=== PATIENT | female | born 1960 | race Caucasian/White ===

== ENCOUNTER 2020-03-29 11:42 | Outpatient (REF) | payer OTHER, SELFPAY ==
[2020-03-29 14:44] LABS: Alanine Aminotransferase 16 U/L (0-31); Albumin Level 4.4 g/dL (3.5-5.0); Alkaline Phosphatase 52 U/L (39-117); Anion Gap 14 (12-20); Aspartate Amino Transferase 15 U/L (5-31); Bilirubin Total 0.6 mg/dL (0.0-1.0); Blood Urea Nitrogen 13 mg/dL (9-16); Calcium 9.2 mg/dL (8.4-10.2); Carbon Dioxide 28 mmol/L (22-29); Chloride 102 mmol/L (96-108); Estimated Glomerular Filt Rate > 60; Glucose Random 87 mg/dL (60-115); Magnesium 1.7 mg/dL (1.6-2.6); Potassium 4.4 mmol/l (3.3-5.1); Sodium 140 mmol/L (135-145); Total Protein 6.5 g/dL (6.5-8.0)
== END 2020-03-29 11:43 | disposition home or self-care (01) ==
LOC: HO.10HDL 11:42
PROVIDERS: Visit Provider Physician Assistant
DX: R25.2 Cramp and spasm (principal)
CPT/HCPCS: 80053; 83735

== ENCOUNTER 2020-04-17 10:37 | Outpatient (REF) | payer OTHER, SELFPAY ==
[2020-04-17 14:08] LABS: Iron 84 mcg/dL (30-160); Percent Iron Saturation 25 % (15-50); Total Iron Binding Capacity 331 mcg/dL (228-428); Unsaturated Iron Binding 247 ug/dL
[2020-04-20 10:07] LABS: Magnesium, RBC 5.9 mg/dL (4.0-6.4)
== END 2020-04-17 10:38 | disposition home or self-care (01) ==
LOC: HO.10HDL 10:37
PROVIDERS: Visit Provider Physician Assistant
DX: R53.83 Other fatigue (principal)
CPT/HCPCS: 83540; 83735

== ENCOUNTER 2020-05-02 08:48 | Outpatient (REF) | payer OTHER, SELFPAY ==
[2020-05-02 11:54] LABS: Ferritin 89 ng/mL (10-250)
== END 2020-05-02 08:49 | disposition home or self-care (01) ==
LOC: HO.10HDL 08:48
PROVIDERS: Visit Provider Physician Assistant
DX: R53.83 Other fatigue (principal)
CPT/HCPCS: 36415; 82728

== ENCOUNTER 2020-08-17 10:54 | Outpatient (REF) | payer OTHER, SELFPAY ==
[2020-08-17 14:00] LABS: Alanine Aminotransferase 14 U/L (0-31); Aspartate Amino Transferase 16 U/L (5-31); Estimated Glomerular Filt Rate > 60
== END 2020-08-17 10:55 | disposition home or self-care (01) ==
LOC: HO.10HDL 10:54
PROVIDERS: PCP Physician Assistant Medical; Visit Provider Physician Assistant Medical
DX: G83.9 Paralytic syndrome, unspecified (principal)
CPT/HCPCS: 36415; 82565; 84450; 84460

== ENCOUNTER 2020-10-24 12:57 | Outpatient (REF) | payer OTHER, SELFPAY ==
--- NOTE | ~2020-10-24 | US_ITS ---
EXAMINATION: RIGHT and LEFT LOWER EXTREMITY VENOUS ULTRASOUND (Reflux Exam) CLINICAL INDICATION: leg pain and varicose veins. COMPARISON: None. TECHNIQUE: Color flow triplex imaging and compression Doppler was performed to evaluate both the deep and the superficial systems bilaterally. To evaluate the superficial system, the examination was performed in the upright position. Color-flow Doppler ultrasound and compression ultrasound were utilized. In addition, maneuvers were utilized to demonstrate reflux. FINDINGS: 1. DEEP VENOUS ULTRASOUND OF THE RIGHT LOWER EXTREMITY: Respiratory variation, normal compression and augmented flow are noted in the right common femoral vein as well as the right popliteal vein and there is no evidence of deep venous thrombosis at these locations. There is no evidence of reflux in the deep system in either the common femoral vein or the popliteal vein. There is no evidence of a Goncalves's cyst. 2. SUPERFICIAL ULTRASOUND WITH DOPPLER OF RIGHT LOWER EXTREMITY: The right great saphenous vein at the saphenofemoral junction measures 5 mm, at the mid thigh 3 mm, kzzcb-[id number]-bpid 3 mm, zdelg-owu-klnr 2 mm, at mid calf 2 mm and at the ankle measures 2 mm. There is no reflux demonstrated in the right great saphenous vein. There is a lateral accessory greater saphenous vein that measures 2 mm and does not demonstrate reflux The right small saphenous vein measures 1 mm and shows no reflux. There is a senior international tax manager in the calf that measures 2 mm and does not demonstrate reflux. 3. DEEP VENOUS ULTRASOUND OF THE LEFT LOWER EXTREMITY: Respiratory variation, normal compression and augmented flow are noted in the left common femoral vein as well as the left popliteal vein and there is no evidence of deep venous thrombosis at these locations. There is no evidence of reflux in the deep system in either the common femoral vein or the popliteal vein. . There is no evidence of a Goncalves's cyst. 4. SUPERFICIAL ULTRASOUND WITH DOPPLER OF LEFT LOWER EXTREMITY: Left great saphenous vein at the saphenofemoral junction measures 4 mm, at the mid thigh to mm, uzbyr-kpl-vycy 2 mm, zogve-xxf-uorw 2 mm, at mid calf 2 mm and at the ankle measures 2 mm. There is no reflux demonstrated in the left great saphenous vein. There is an accessory lateral greater saphenous vein that measures 2 mm and does not demonstrate reflux. The left small saphenous vein measures 1-2 mm and shows no reflux. There is a senior international tax manager in the calf that measures 3 mm and does not demonstrate reflux. US/US venous duplex LE BI IMPRESSION: 1. No evidence of reflux or thrombus in the common femoral veins or popliteal veins bilaterally. 2. The saphenous systems are competent bilaterally. .
== END 2020-10-24 12:58 | disposition home or self-care (01) ==
LOC: HO.US 12:57
PROVIDERS: PCP Internal Medicine; Visit Provider Physician Assistant
DX: I87.2 Venous insufficiency (chronic) (peripheral) (principal)
CPT/HCPCS: 93970

== ENCOUNTER 2020-12-27 09:31 | Outpatient (REF) | payer OTHER, SELFPAY ==
[2020-12-27 10:47] LABS: MANUAL DIFF FLAG NO
[2020-12-27 10:56] LABS: Basophils Absolute Auto 0.1 X10*3/uL (0.0-0.2); Basophils Percent Auto 1.4 % (0-2); Eosinophils Absolute Auto 0.2 X10*3/uL (0.0-0.4); Eosinophils Percent Auto 4.9 % (0-4); Hematocrit 41.7 % (37-47); Hemoglobin 13.6 g/dl (12.0-16.0); Imm Gran Abs Auto 0.01 X10*3/uL (0.00-0.03); Imm Gran Pct Auto 0.2 % (0.0-0.4); Lymphocytes Absolute Auto 1.7 X10*3/uL (1.2-4.9); Lymphocytes Percent Auto 39.2 % (20-40); Mean Corpuscular HGB Conc 32.6 g/dl (31.0-35.0); Mean Corpuscular Hemoglobin 30.8 pg (27.0-33.0); Mean Corpuscular Volume 94.3 fL (80-98); Monocytes Absolute Auto 0.4 X10*3/uL (0.1-1.2); Monocytes Percent Auto 8.6 % (2-11); Neutrophils Percent Auto 45.7 % (45-73); Platelet Count 241 X10*3/uL (160-400); Red Blood Count 4.42 X10*6/uL (4.20-5.50); Red Cell Distribution Width 12.9 % (11.0-16.0); White Blood Count 4.3 X10*3/uL (4.8-10.8)
[2020-12-27 11:28] LABS: Alanine Aminotransferase 16 U/L (0-31); Albumin Level 4.3 g/dL (3.5-5.0); Alkaline Phosphatase 53 U/L (39-117); Anion Gap 13 (12-20); Aspartate Amino Transferase 19 U/L (5-31); Bilirubin Total 0.6 mg/dL (0.0-1.0); Blood Urea Nitrogen 8 mg/dL (9-16); Calcium 9.6 mg/dL (8.4-10.2); Carbon Dioxide 28 mmol/L (22-29); Chloride 105 mmol/L (96-108); Cholesterol 289 mg/dL; Estimated Glomerular Filt Rate > 60; Glucose Fasting 83 mg/dL (60-99); HDL Cholesterol 81 mg/dL; Iron 114 mcg/dL (30-160); LDL Cholesterol Calculated 187 mg/dl; Magnesium 1.9 mg/dL (1.6-2.6); Percent Iron Saturation 32 % (15-50); Potassium 4.4 mmol/L (3.3-5.1); Sodium 142 mmol/L (135-145); Total Iron Binding Capacity 358 mcg/dL (228-428); Total Protein 6.5 g/dL (6.5-8.0); Triglycerides 109 mg/dL; Unsaturated Iron Binding 244 ug/dL
[2020-12-27 11:57] LABS: Folate 12.2 ng/mL (> or = 4.0); Vitamin B12 203 pg/mL (200-900)
== END 2020-12-27 09:32 | disposition home or self-care (01) ==
LOC: HO.10HDL 09:31
PROVIDERS: Visit Provider Physician Assistant
DX: Z00.00 Encounter for general adult medical examination without abnormal findings (principal); E83.42 Hypomagnesemia; D50.0 Iron deficiency anemia secondary to blood loss (chronic)
CPT/HCPCS: 36415; 80053; 80061; 82607; 82746; 83540; 83735; 85025

== ENCOUNTER 2021-01-30 09:43 | Outpatient (REF) | payer OTHER, SELFPAY ==
[2021-01-30 10:57] LABS: Vitamin D 25-OH Total 27.8 ng/mL (>30)
== END 2021-01-30 09:44 | disposition home or self-care (01) ==
LOC: HO.10HDL 09:43
PROVIDERS: Visit Provider Advanced Practice Midwife
DX: E55.9 Vitamin D deficiency, unspecified (principal)
CPT/HCPCS: 36415; 82306

== ENCOUNTER 2021-02-07 15:56 | Outpatient (REF) | payer OTHER, SELFPAY ==
--- NOTE | ~2021-02-07 | MM_ITS ---
EXAMINATION: MM SCREENING DIGITAL BREAST TOMOSYNTHESIS, BILATERAL CLINICAL INFORMATION: Screening. Asymptomatic. The lifetime risk of breast cancer based on the Tyrer-Cuzick Model is 4%. COMPARISON: Mammography: 01/04/2020, 12/29/2018, 12/22/2017 TECHNIQUE: Digital breast tomosynthesis is performed in both the craniocaudal and mediolateral oblique views along with computer-aided detection (CAD). Synthesized 2D images are generated from the tomosynthesis. FINDINGS: There are scattered areas of fibroglandular density (ACR BI-RADS breast composition Category b). Breast tissue composition borders on heterogeneously dense. Parenchymal pattern is similar to prior studies. No interval mass or developing density or architectural abnormality. No abnormal calcifications. The axilla and skin contours are unremarkable. MM/MM tomosynthesis screening BI IMPRESSION: No mammographic evidence of malignancy. ASSESSMENT: BI-RADS 1: Negative RECOMMENDATION: Routine annual mammography screening. This patient's information was entered into a reminder system with a target due date for their next mammogram.
== END 2021-02-07 15:57 | disposition home or self-care (01) ==
LOC: HO.MAMMO 15:56
PROVIDERS: PCP Advanced Practice Midwife; Visit Provider Advanced Practice Midwife
DX: Z12.31 Encounter for screening mammogram for malignant neoplasm of breast (principal)
CPT/HCPCS: 77063; 77067

== ENCOUNTER 2021-08-21 12:48 | Outpatient (REF) | payer OTHER, SELFPAY ==
[2021-08-21 14:30] LABS: Alanine Aminotransferase 17 U/L (0-31); Albumin Level 4.5 g/dL (3.5-5.0); Alkaline Phosphatase 42 U/L (39-117); Aspartate Amino Transferase 21 U/L (5-31); Bilirubin Direct 0.2 mg/dL (0.0-0.5); Bilirubin Total 0.4 mg/dL (0.0-1.0); Total Protein 6.8 g/dL (6.5-8.0)
== END 2021-08-21 12:49 | disposition home or self-care (01) ==
LOC: HO.HMGCLDS 12:48
PROVIDERS: PCP Internal Medicine; Visit Provider Student in an Organized Health Care Education/Training Program
DX: S14.125A Central cord syndrome at C5 level of cervical spinal cord, initial encounter (principal)
CPT/HCPCS: 36415; 80076

== ENCOUNTER 2021-10-01 11:39 | Outpatient (REF) | payer OTHER, SELFPAY ==
--- NOTE | ~2021-10-01 | XR_ITS ---
EXAMINATION: X-RAY RIGHT SHOULDER X-RAY LEFT SHOULDER CLINICAL INFORMATION: Pain. COMPARISON: No similar priors. TECHNIQUE: 4 views of each shoulder. FINDINGS: No acute fractures or malalignment. The humeral heads are well-seated in their glenoid. The acromioclavicular joints are intact except for mild degenerative osteoarthritis. No significant soft tissue abnormality. Imaged lungs are within normal limits. XR/XR shoulder LT min 2V IMPRESSION: No acute fracture or malalignment. 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
--- NOTE | ~2021-10-01 | XR_ITS ---
EXAMINATION: X-RAY RIGHT SHOULDER X-RAY LEFT SHOULDER CLINICAL INFORMATION: Pain. COMPARISON: No similar priors. TECHNIQUE: 4 views of each shoulder. FINDINGS: No acute fractures or malalignment. The humeral heads are well-seated in their glenoid. The acromioclavicular joints are intact except for mild degenerative osteoarthritis. No significant soft tissue abnormality. Imaged lungs are within normal limits. XR/XR shoulder RT min 2V IMPRESSION: No acute fracture or malalignment. 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
== END 2021-10-01 11:40 | disposition home or self-care (01) ==
LOC: HO.XRAY 11:39
PROVIDERS: PCP Internal Medicine; Visit Provider Student in an Organized Health Care Education/Training Program
DX: M25.511 Pain in right shoulder (principal); M25.512 Pain in left shoulder
CPT/HCPCS: 73030

== ENCOUNTER 2021-11-08 11:45 | Outpatient (REF) | payer OTHER, SELFPAY ==
--- NOTE | ~2021-11-08 | XR_ITS ---
EXAMINATION: XR LUMBOSACRAL SPINE CLINICAL INFORMATION: Low back pain. COMPARISON: 03/01/2008. TECHNIQUE: 3 views of the lumbosacral spine. FINDINGS: There are 5 eem-tec-rimzmrg lumbar vertebra. There is mild scoliosis convex left. No acute fracture is identified. No definite spondylolysis is seen. There is a minimal grade 1 spondylolisthesis L4-L5. There is facet arthropathy seen at the L4-L5 level bilaterally. There are some mildly increased sclerosis about the left L5-S1 facet joint. There is degenerative spurring of the sacroiliac joints bilaterally. Psoas margins are intact. Calcified splenic artery aneurysm is seen. XR/XR lumbar spine 2-3V IMPRESSION: Mild degenerative change of the lumbar spine as described without evidence of acute fracture. The facet arthropathy is new since study of 03/01/2008. Rim calcified 1.5 cm splenic artery aneurysm.
== END 2021-11-08 11:46 | disposition home or self-care (01) ==
LOC: HO.XRAY 11:45
PROVIDERS: PCP Internal Medicine; Visit Provider Student in an Organized Health Care Education/Training Program
DX: M54.50 Low back pain, unspecified (principal)
CPT/HCPCS: 72100

== ENCOUNTER 2021-11-13 12:25 | Emergency (ER) | payer OTHER, SELFPAY ==
--- NOTE | 2021-11-13 | ECG_ITS ---
Test Reason : chest pain Blood Pressure : / mmHG Vent. Rate : 065 BPM Atrial Rate : 065 BPM P-R Int : 164 ms QRS Dur : 084 ms QT Int : 372 ms P-R-T Axes : 078 071 062 degrees QTc Int : 386 ms Normal sinus rhythm Normal ECG No previous ECGs available Referred By: Generic ED Physician Electronically Signed By:Pasquale Del Rosario
--- NOTE | ~2021-11-13 | XR_ITS ---
EXAMINATION: XR CHEST CLINICAL INFORMATION: Chest pain COMPARISON: None TECHNIQUE: PA view of the chest was obtained. FINDINGS: No significant abnormality is noted involving the heart, lungs, mediastinum, bony thorax or soft tissues. XR/XR chest 1V IMPRESSION: No acute disease.
[2021-11-13 14:29] VITALS: BP 132/71; PULSE 69; RESP 18; O2SAT 95; BMI 19.1
[2021-11-13 14:48] LABS: MANUAL DIFF FLAG NO
[2021-11-13 14:51] LABS: Basophils Percent Auto 0.7 % (0-2); Eosinophils Absolute Auto 0.8 X10*3/uL (0.0-0.4); Eosinophils Percent Auto 15.6 % (0-4); Hematocrit 42.8 % (37.0-47.0); Hemoglobin 14.2 g/dl (12.0-16.0); Imm Gran Abs Auto 0.01 X10*3/uL (0.00-0.03); Imm Gran Pct Auto 0.2 % (0.0-0.4); Lymphocytes Absolute Auto 1.8 X10*3/uL (1.2-4.9); Lymphocytes Percent Auto 33.1 % (20-40); Mean Corpuscular HGB Conc 33.2 g/dl (31.0-35.0); Mean Corpuscular Hemoglobin 31.8 pg (27.0-33.0); Mean Corpuscular Volume 95.7 fL (80.0-98.0); Mean Platelet Volume 10.3 fL (9.4-12.3); Monocytes Absolute Auto 0.4 X10*3/uL (0.1-1.2); Neutrophils Absolute Auto 2.3 x10*3/uL (2.0-8.3); Neutrophils Percent Auto 42.4 % (45-73); Platelet Count 241 X10*3/uL (160-400); Red Blood Count 4.47 X10*6/uL (4.20-5.50); White Blood Count 5.4 X10*3/uL (4.8-10.8)
[2021-11-13 15:05] LABS: Anion Gap 11 (12-20); Blood Urea Nitrogen 10 mg/dL (9-16); Calcium 9.5 mg/dL (8.4-10.2); Carbon Dioxide 29 mmol/L (22-29); Chloride 106 mmol/L (96-108); Creatinine Clr Calc Pharmacy 69.4; Estimated Glomerular Filt Rate > 60; Glucose Random 98 mg/dL (60-115); Potassium 4.4 mmol/L (3.3-5.1); Sodium 142 mmol/L (135-145)
[2021-11-13 15:10] LABS: Troponin-I High Sensitivity < 3.5 ng/L (<3.5-17.0)
--- NOTE | 2021-11-13 17:10 | ED_ITS ---
HPI - Chest Pain General Chief Complaint: Chest Pain Stated Complaint: Chest discomfort Time Seen by Provider: 11/13/21 17:01 Source: patient and family Mode of arrival: wheelchair Limitations: no limitations History of Present Illness HPI narrative: 61-year-old female states she had an injury to her C5 vertebrae which was repaired at [facility] and has tension paresis. She states she has been having issues lately with tingling in her legs and arms for which she takes baclofen normally and had recently started on gabapentin. She states today she noticed some pain versus sensation to her chest they got her labs and she came to the emergency from further evaluation she denies any chest pain at this time she d enies fevers chills cough nausea vomiting or diarrhea. She also states that at times she feels like she is having harder time breathing than normal. MD complaint: chest heaviness Related Data Allergies Allergy/AdvReac Type Severity Reaction Status Date / Time Penicillins Allergy Rash Verified 11/13/21 14:29 Sulfa (Sulfonamide Allergy Rash Verified 11/13/21 14:29 Antibiotics) Review of Systems Review of Systems: Review of systems: General: Patient denies any fever chills recent illness or falls Musculoskeletal: Denies back pain or body aches or other injuries HEENT: denies headache, runny nose, ear pain Respiratory: denies shortness of breath, cough Cardiovascular: no chest pain or palpitations : denies dysuria, frequency Abdomen: no nausea vomiting denies abdominal pain Extremities: no swelling, no pain Skin: no diaphoresis Yes all other systems are reviewed and are negative PMFSH Past Medical History Attestation statement: The following information was validated with the patient. Physical Exam Vital Signs: Vital Signs: Last Vital Signs Pulse 69 11/13/21 14:29 Resp 18 11/13/21 14:29 BP 132/71 11/13/21 14:29 Pulse Ox 95 11/13/21 14:29 O2 Del Method 11/13/21 14:29 BMI result Body Mass Index 19.1 General: Well-appearing well-nourished in no signs of distress HEENT: Normocephalic atraumatic Neck: No signs of JVD, no masses no tenderness or lymphadenopathy Cardiovascular: Regular rate and rhythm Respiratory: Clear to auscultation bilaterally Abdomen: Soft nontender no masses Extremities: Normal pedal pulses no signs of edema patient is moving all 4 extremities well Skin: Dry warm no rashes Back: No tenderness full ROM MDM - Chest Pain MDM Narrative Medical decision making narrative: Patient multiple planes with a normal workup including EKG labs and troponin she did have his symptoms the past 2 days I do not think this is ACS I do not think we need another troponin level thinks is likely related to her C5 vertebra and paresthesias and she will likely need follow-up with her neurosurgeon. Medical Records Data Attestation: I reviewed the patient's medical records. Lab Data Attestation: I reviewed the patient's lab results. Result diagrams: 11/13/21 14:43 11/13/21 14:43 Labs: Lab Results 11/13/21 11/13/21 11/13/21 Range/Units 14:43 14:43 14:44 WBC 5.4 (4.8-10.8) X10*3/uL RBC 4.47 (4.20-5.50) X10*6/uL Hgb 14.2 (12.0-16.0) g/dl Hct 42.8 (37.0-47.0) % MCV 95.7 (80.0-98.0) fL MCH 31.8 (27.0-33.0) pg MCHC 33.2 (31.0-35.0) g/dl RDW 13.0 (11.0-16.0) % Plt Count 241 (160-400) X10*3/uL MPV 10.3 (9.4-12.3) fL Immature Gran % (Auto) 0.2 (0.0-0.4) % Neut % (Auto) 42.4 L (45-73) % Lymph % (Auto) 33.1 (20-40) % Nye % (Auto) 8.0 (2-11) % Eos % (Auto) 15.6 H (0-4) % Baso % (Auto) 0.7 (0-2) % Lymph # (Auto) 1.8 (1.2-4.9) X10*3/uL Nye # (Auto) 0.4 (0.1-1.2) X10*3/uL Eos # (Auto) 0.8 H (0.0-0.4) X10*3/uL Baso # (Auto) 0.0 (0.0-0.2) X10*3/uL Abs Immat Gran (auto) 0.01 (0.00-0.03) X10*3/uL Absolute Neuts (auto) 2.3 (2.0-8.3) x10*3/uL Absolute Nucleated RBC 0.000 (0.0-0.012) X10*3/uL Nucleated RBC % (auto) 0.0 (0.0-0.2) /100WBC Sodium 142 (135-145) mmol/L Potassium 4.4 (3.3-5.1) mmol/L Chloride 106 (96-108) mmol/L Carbon Dioxide 29 (22-29) mmol/L Anion Gap 11 L (12-20) BUN 10 (9-16) mg/dL Creatinine 0.65 (0.5-1.4) mg/dL Estim Creat Clear Calc 69.4 Estimated GFR > 60 Random Glucose 98 (60-115) mg/dL Calcium 9.5 (8.4-10.2) mg/dL Troponin I High Sens < 3.5 (<3.5-17.0) ng/L ECG Data ECG #1: Attestation: I personally reviewed and interpreted this ECG as follows: ECG interpretation date: 11/13/21 ECG interpretation time: 17:13 Prior ECG tracings: not available for review Interpretation: Rate 65 normal sinus rhythm normal intervals no signs of ischemia Scores Heart Score History: -0- slightly suspicious ECG: -0- normal Age: -1- >45 - <65 Risk factory: -0- no risk factors known Troponin: -0- < or = normal limit Score: 1 Risk: 1.7% Discharge Plan Discharge Clinical Impression: Chest pain, Paresthesias Patient Disposition: Home, Self-Care Additional Instructions: Your x-ray and labs are all unremarkable if you have any other further concerns please not hesitate to come back to emergency department.
[2021-11-13 17:40] VITALS: BP 115/65; PULSE 88; RESP 16; O2SAT 96
--- NOTE | 2021-11-13 17:40 | PC.NURSE ---
PT WAS SEEN AND DISPOSED BY DR PALMER. RESULTS WERE REVIEWED [facility]
== END 2021-11-13 17:41 | disposition home or self-care (01) ==
PROVIDERS: Emergency Provider Student in an Organized Health Care Education/Training Program; PCP Internal Medicine
DX: R07.9 Chest pain, unspecified (principal); R20.2 Paresthesia of skin
CPT/HCPCS: 36415; 71045; 80048; 84484; 85025; 93005; 99283

== ENCOUNTER 2022-02-12 15:54 | Outpatient (REF) | payer OTHER, SELFPAY ==
--- NOTE | ~2022-02-12 | MM_ITS ---
EXAMINATION: MM SCREENING DIGITAL BREAST TOMOSYNTHESIS, BILATERAL CLINICAL INFORMATION: Screening. Asymptomatic. The lifetime risk of breast cancer based on the Tyrer-Cuzick Model is 4%. COMPARISON: Mammography: 02/07/2021, 01/04/2020, 12/29/2018 TECHNIQUE: Digital breast tomosynthesis is performed in both the craniocaudal and mediolateral oblique views along with computer-aided detection (CAD). Synthesized 2D images are generated from the tomosynthesis. FINDINGS: There are scattered areas of fibroglandular density (ACR BI-RADS breast composition Category b). Parenchymal pattern is similar to prior studies. There is no developing density or architectural abnormality. No significant mass. There are some scattered vascular calcifications again seen. No abnormal calcifications. The axilla and skin contours are unremarkable. MM/MM tomosynthesis screening BI IMPRESSION: No mammographic evidence of malignancy. ASSESSMENT: BI-RADS 1: Negative RECOMMENDATION: Routine annual mammography screening. This patient's information was entered into a reminder system with a target due date for their next mammogram.
== END 2022-02-12 15:55 | disposition home or self-care (01) ==
LOC: HO.MAMMO 15:54
PROVIDERS: PCP Internal Medicine; Visit Provider Advanced Practice Midwife
DX: Z12.31 Encounter for screening mammogram for malignant neoplasm of breast (principal)
CPT/HCPCS: 77063; 77067

== ENCOUNTER 2022-02-22 08:46 | Outpatient (REF) | payer OTHER, SELFPAY ==
--- NOTE | ~2022-02-22 | US_ITS ---
EXAMINATION: US RETROPERITONEAL LIMITED (AORTA) CLINICAL INFORMATION: Known aneurysm of splenic artery. COMPARISON: None TECHNIQUE: Barrios-scale, color Doppler and spectral Doppler evaluation of the abdominal aorta. FINDINGS: The aorta is normal. The measurements of the aorta in maximum AP and transverse dimensions respectively are as follows: Proximal: 2.4 x 2.1 cm. Mid: 1.9 x 2.1 cm. Distal: 1.6 x 1.6 cm. PSV: 75.8 cm/s. The measurements of the common iliac arteries in maximum AP and TRV dimensions are as follows: Right Common Iliac Artery: 1.1 x 0.92 cm. Left Common Iliac Artery: 0.8 x 0.65 cm. US/US aorta IMPRESSION: Normal caliber abdominal aorta. No abdominal aortic aneurysm is seen..
[2022-02-22 15:06] LABS: Alanine Aminotransferase 9 U/L (0-31); Albumin Level 4.3 g/dL (3.5-5.0); Alkaline Phosphatase 49 U/L (39-117); Aspartate Amino Transferase 18 U/L (5-31); Bilirubin Direct 0.2 mg/dL (0.0-0.5); Bilirubin Total 0.5 mg/dL (0.0-1.0); Total Protein 6.6 g/dL (6.5-8.0)
== END 2022-02-22 08:47 | disposition home or self-care (01) ==
LOC: HO.HMGCX 08:46
PROVIDERS: Absent Provider Physical Medicine & Rehabilitation; PCP Internal Medicine; Visit Provider Physician Assistant
DX: I72.8 Aneurysm of other specified arteries (principal); S14.125A Central cord syndrome at C5 level of cervical spinal cord, initial encounter
CPT/HCPCS: 36415; 76775; 80076

== ENCOUNTER 2022-04-09 11:10 | Outpatient (REF) | payer OTHER, SELFPAY ==
[2022-04-09 14:01] LABS: Appearance Urine Clear; Color Urine Yellow; Glucose Urine UA Negative (Negative); Leukocyte Esterase Urine Moderate (2+) (Negative); Nitrite Urine Negative (Negative); PH 5.5 (5.0-9.0); Specific Gravity - Urine <= 1.005 (1.005-1.025); UMIC TRIGGER UA YES; Urine Blood Negative (Negative); Urine Ketones Negative (Negative); Urine Protein Negative (Neg-Trace)
[2022-04-09 14:21] LABS: Bacteria Urine None Seen (None Seen); Hyaline Casts Urine 0-2 /LPF (0-2); RBC Urine 0-2 /HPF (0-2); Squamous Epithelial Cell Urine 0-2 /HPF (0-2); WBC Urine 0-5 /HPF (0-5)
== END 2022-04-09 11:11 | disposition home or self-care (01) ==
LOC: HO.HMGCLDS 11:10
PROVIDERS: PCP Internal Medicine; Visit Provider Urology
DX: R39.15 Urgency of urination (principal)
CPT/HCPCS: 81001; 81003; 87086

== ENCOUNTER 2022-05-30 08:57 | Outpatient (REF) | payer OTHER, SELFPAY ==
[2022-05-30 11:23] LABS: MANUAL DIFF FLAG NO
[2022-05-30 11:33] LABS: Basophils Absolute Auto 0.1 X10*3/uL (0.0-0.2); Eosinophils Absolute Auto 0.2 X10*3/uL (0.0-0.4); Eosinophils Percent Auto 3.8 % (0-4); Hematocrit 44.1 % (37.0-47.0); Imm Gran Abs Auto 0.02 X10*3/uL (0.00-0.03); Imm Gran Pct Auto 0.4 % (0.0-0.4); Lymphocytes Absolute Auto 2.3 X10*3/uL (1.2-4.9); Lymphocytes Percent Auto 42.9 % (20-40); Mean Corpuscular HGB Conc 31.7 g/dl (31.0-35.0); Mean Corpuscular Hemoglobin 29.9 pg (27.0-33.0); Mean Platelet Volume 10.1 fL (9.4-12.3); Monocytes Absolute Auto 0.5 X10*3/uL (0.1-1.2); Monocytes Percent Auto 8.8 % (2-11); Neutrophils Absolute Auto 2.3 x10*3/uL (2.0-8.3); Neutrophils Percent Auto 43.1 % (45-73); Platelet Count 270 X10*3/uL (160-400); Red Blood Count 4.69 X10*6/uL (4.20-5.50); Red Cell Distribution Width 13.1 % (11.0-16.0); White Blood Count 5.3 X10*3/uL (4.8-10.8)
[2022-05-30 12:00] LABS: Alanine Aminotransferase 21 U/L (0-31); Albumin Level 4.3 g/dL (3.5-5.0); Alkaline Phosphatase 40 U/L (39-117); Anion Gap 10 (12-20); Aspartate Amino Transferase 18 U/L (5-31); Bilirubin Direct < 0.2 mg/dL (0.0-0.5); Bilirubin Total 0.4 mg/dL (0.0-1.0); Blood Urea Nitrogen 12 mg/dL (9-16); Calcium 9.5 mg/dL (8.4-10.2); Carbon Dioxide 33 mmol/L (22-29); Chloride 104 mmol/L (96-108); Cholesterol 338 mg/dL; Estimated Glomerular Filt Rate > 60; Glucose Random 92 mg/dL (60-115); HDL Cholesterol 93 mg/dL; LDL Cholesterol Calculated 231 mg/dl; Potassium 4.4 mmol/L (3.3-5.1); Sodium 143 mmol/L (135-145); Total Protein 6.4 g/dL (6.5-8.0); Triglycerides 71 mg/dL
[2022-05-30 12:22] LABS: Vitamin D 25-OH Total 52.5 ng/mL (>30)
== END 2022-05-30 08:58 | disposition home or self-care (01) ==
LOC: HO.HMGCLDS 08:57
PROVIDERS: PCP Physician Assistant; Visit Provider Physician Assistant
DX: Z00.00 Encounter for general adult medical examination without abnormal findings (principal); E55.9 Vitamin D deficiency, unspecified; S14.129A Central cord syndrome at unspecified level of cervical spinal cord, initial encounter
CPT/HCPCS: 36415; 80053; 80061; 82248; 82306; 85025

== ENCOUNTER 2022-05-30 10:39 | Outpatient (REF) | payer OTHER, SELFPAY ==
--- NOTE | ~2022-05-30 | MM_ITS ---
EXAMINATION: BONE DENSITOMETRY CLINICAL INDICATION: Osteopenia. COMPARISON: Baseline BD dated 01/07/2020. TECHNIQUE: Using a NephroPlus DXA System (software version: 13.1) manufactured by [employer], dual-energy x-ray absorptiometry was performed of the lumbar spine and left hip. The images are of good technical quality. Summary results are attached. FINDINGS: AP SPINE L1-L4: Current: BMD 0.988 g/cm2, Z-score 0.2, T-score -1.6, osteopenia, 5.1% decrease from baseline (<5% change is not significant). Baseline: BMD 1.041 g/cm2. LEFT FEMUR, NECK: Current: BMD 0.690 g/cm2, Z-score -0.9, T-score -2.5, osteoporosis. Baseline: BMD 0.780 g/cm2. LEFT FEMUR, TOTAL: Current: BMD 0.799 g/cm2, Z-score -0.3, T-score -1.7, osteopenia, 6.3% decrease from baseline (<5% change is not significant). Baseline: BMD 0.853 g/cm2. IDENTIFIED RISK FACTORS: Menopause. Hysterectomy. Glucocorticoids (chronic). HISTORY OF FRACTURE: No insufficiency fracture reported. MEDICATIONS: Calcium supplement or multivitamin. Vitamin D. Bisphosphonates. MM/XR DEXA axial skeleton IMPRESSION: 1. DIAGNOSIS: Osteoporosis based on the lowest T-score value of -2.5 in the femoral neck applying World Health Organization criteria. 2. 10-YEAR FRACTURE RISK PREDICTION, FRAX: According to the guidelines, FRAX calculation should only be performed on patients in the osteopenia bone density category. Therefore, FRAX was not performed on this patient.? 3. Treatment Recommendations: NOF guidelines recommend consideration for treatment in postmenopausal women and men age 50 and older presenting with the following: -A hip or vertebral (clinical or morphometric) fracture. -T-score less than or equal to -2.5 at the femoral neck or spine after appropriate evaluation to exclude secondary causes. -Low bone mass at the hip or spine and a 10-year fracture probability by FRAX of greater than or equal to 3% for hip fracture or greater than or equal to 20% for major osteoporotic fracture based on the [place] adapted WHO algorithm. 4. Other Recommendations: All treatment decisions require clinical judgment and consideration of individual patient factors, including patient preferences, comorbidities, previous drug use, risk factors not captured in the FRAX model (e.g. frailty, falls, vitamin D deficiency, increased bone turnover, interval significant decline in bone density) and possible under or overestimation of fracture risk by FRAX. Additional medical evaluation for secondary cause of low bone mineral density may be appropriate. FUTURE SCAN RECOMMENDATION: People with diagnosed cases of osteoporosis or at high risk for fracture should have regular bone mineral density tests. For patients eligible for Medicare, routine testing is allowed once every 2 years. The testing frequency can be increased to one year for patients who have rapidly progressing disease, those who are receiving or discontinuing medical therapy to restore bone mass, or have additional risk factors.
== END 2022-05-30 10:40 | disposition home or self-care (01) ==
LOC: HO.MAMMO 10:39
PROVIDERS: PCP Physician Assistant; Visit Provider Physician Assistant
DX: Z13.820 Encounter for screening for osteoporosis (principal); M85.80 Other specified disorders of bone density and structure, unspecified site; Z78.0 Asymptomatic menopausal state
CPT/HCPCS: 77080

== ENCOUNTER 2022-08-23 11:00 | Outpatient (RCR) | payer OTHER, SELFPAY | END 2022-08-23 13:00 | disposition home or self-care (01) | LOC: HO.PT 11:00 | PROVIDERS: PCP Physician Assistant; Visit Provider Obstetrics & Gynecology | DX: N31.9 Neuromuscular dysfunction of bladder, unspecified (principal) | CPT/HCPCS: 97112; 97140; 97163 ==

== ENCOUNTER 2022-11-04 08:30 | Outpatient (REF) | payer OTHER, SELFPAY ==
[2022-11-04 11:44] LABS: MANUAL DIFF FLAG NO
[2022-11-04 11:52] LABS: Basophils Absolute Auto 0.1 X10*3/uL (0.0-0.2); Basophils Percent Auto 1.1 % (0-2); Eosinophils Absolute Auto 0.6 X10*3/uL (0.0-0.4); Eosinophils Percent Auto 11.7 % (0-4); Hematocrit 41.6 % (37.0-47.0); Hemoglobin 13.6 g/dl (12.0-16.0); Imm Gran Abs Auto 0.02 X10*3/uL (0.00-0.03); Imm Gran Pct Auto 0.4 % (0.0-0.4); Lymphocytes Absolute Auto 1.9 X10*3/uL (1.2-4.9); Lymphocytes Percent Auto 34.5 % (20-40); Mean Corpuscular HGB Conc 32.7 g/dl (31.0-35.0); Mean Corpuscular Hemoglobin 31.6 pg (27.0-33.0); Mean Corpuscular Volume 96.5 fL (80.0-98.0); Mean Platelet Volume 10.5 fL (9.4-12.3); Monocytes Absolute Auto 0.5 X10*3/uL (0.1-1.2); Monocytes Percent Auto 9.1 % (2-11); Neutrophils Absolute Auto 2.3 x10*3/uL (2.0-8.3); Neutrophils Percent Auto 43.2 % (45-73); Platelet Count 276 X10*3/uL (160-400); Red Blood Count 4.31 X10*6/uL (4.20-5.50); Red Cell Distribution Width 12.6 % (11.0-16.0); White Blood Count 5.4 X10*3/uL (4.8-10.8)
[2022-11-04 13:10] LABS: Alanine Aminotransferase 21 U/L (0-31); Alkaline Phosphatase 44 U/L (39-117); Anion Gap 13 (12-20); Aspartate Amino Transferase 20 U/L (5-31); Bilirubin Direct 0.1 mg/dL (0.0-0.5); Bilirubin Total 0.4 mg/dL (0.0-1.0); Blood Urea Nitrogen 10 mg/dL (9-16); Calcium 9.4 mg/dL (8.4-10.2); Carbon Dioxide 27 mmol/L (22-29); Chloride 106 mmol/L (96-108); Cholesterol 270 mg/dL; Estimated Glomerular Filt Rate > 60; Glucose Random 88 mg/dL (60-115); HDL Cholesterol 80 mg/dL; LDL Cholesterol Calculated 171 mg/dl; Potassium 4.4 mmol/L (3.3-5.1); Sodium 142 mmol/L (135-145); Total Protein 6.4 g/dL (6.5-8.0); Triglycerides 98 mg/dL
[2022-11-04 13:25] LABS: Vitamin D 25-OH Total 45.5 ng/mL (>30)
[2022-11-07 11:53] LABS: Apolipoprotein A1 207 mg/dL (>=125); Apolipoprotein B 123 mg/dL (<90)
== END 2022-11-04 08:31 | disposition home or self-care (01) ==
LOC: HO.HMGCLDS 08:30
PROVIDERS: PCP Physician Assistant; Visit Provider Physician Assistant
DX: Z00.00 Encounter for general adult medical examination without abnormal findings (principal); S14.129A Central cord syndrome at unspecified level of cervical spinal cord, initial encounter; E78.00 Pure hypercholesterolemia, unspecified; E55.9 Vitamin D deficiency, unspecified; X58.XXXA Exposure to other specified factors, initial encounter; Y93.9 Activity, unspecified; Y92.9 Unspecified place or not applicable; Y99.9 Unspecified external cause status
CPT/HCPCS: 36415; 80053; 80061; 82172; 82248; 82306; 85025

== ENCOUNTER 2022-12-02 09:18 | Outpatient (REF) | payer OTHER, SELFPAY ==
[2022-12-03 11:58] LABS: CA-125 8 U/mL (<35)
== END 2022-12-02 09:19 | disposition home or self-care (01) ==
LOC: HO.LAB 09:18
PROVIDERS: Visit Provider Physician Assistant
DX: Z80.3 Family history of malignant neoplasm of breast (principal)
CPT/HCPCS: 36415; 86304

== ENCOUNTER 2023-03-03 16:09 | Outpatient (REF) | payer OTHER, SELFPAY | END 2023-03-03 16:10 | disposition home or self-care (01) | LOC: HO.MAMMO 16:09 | PROVIDERS: PCP Internal Medicine; Visit Provider Internal Medicine | DX: Z12.31 Encounter for screening mammogram for malignant neoplasm of breast (principal) | CPT/HCPCS: 77063; 77067 ==

== ENCOUNTER → 2023-03-03 16:15 | Outpatient (BNV) | payer OTHER, SELFPAY | PROVIDERS: PCP Internal Medicine; Visit Provider Radiology Diagnostic Radiology | DX: Z12.31 Encounter for screening mammogram for malignant neoplasm of breast (principal) | CPT/HCPCS: 77063; 77067 ==

== ENCOUNTER 2023-07-21 09:19 | Outpatient (REF) | payer OTHER, SELFPAY ==
[2023-07-21 11:20] LABS: MANUAL DIFF FLAG NO
[2023-07-21 11:26] LABS: Basophils Absolute Auto 0.1 X10*3/uL (0.0-0.2); Basophils Percent Auto 1.4 % (0-2); Eosinophils Absolute Auto 0.2 X10*3/uL (0.0-0.4); Eosinophils Percent Auto 4.1 % (0-4); Hematocrit 42.7 % (37.0-47.0); Imm Gran Abs Auto 0.01 X10*3/uL (0.00-0.03); Imm Gran Pct Auto 0.3 % (0.0-0.4); Lymphocytes Absolute Auto 1.4 X10*3/uL (1.2-4.9); Mean Corpuscular HGB Conc 32.8 g/dl (31.0-35.0); Mean Corpuscular Hemoglobin 29.9 pg (27.0-33.0); Mean Corpuscular Volume 91.2 fL (80.0-98.0); Mean Platelet Volume 10.4 fL (9.4-12.3); Monocytes Absolute Auto 0.4 X10*3/uL (0.1-1.2); Neutrophils Absolute Auto 1.7 x10*3/uL (2.0-8.3); Neutrophils Percent Auto 46.2 % (45-73); Platelet Count 236 X10*3/uL (160-400); Red Blood Count 4.68 X10*6/uL (4.20-5.50); Red Cell Distribution Width 13.2 % (11.0-16.0); White Blood Count 3.7 X10*3/uL (4.8-10.8)
[2023-07-21 11:33] LABS: Estimated Average Glucose 111 mg/dL; Hemoglobin A1c % 5.5 % (<6.0)
[2023-07-21 13:55] LABS: Alanine Aminotransferase 20 U/L (0-31); Albumin Level 4.2 g/dL (3.5-5.0); Alkaline Phosphatase 50 U/L (39-117); Anion Gap 14 (12-20); Aspartate Amino Transferase 18 U/L (5-31); Bilirubin Total 0.4 mg/dL (0.0-1.0); Blood Urea Nitrogen 11 mg/dL (9-16); Calcium 9.3 mg/dL (8.4-10.2); Carbon Dioxide 29 mmol/L (22-29); Chloride 104 mmol/L (96-108); Cholesterol 278 mg/dL (<200); Estimated Glomerular Filt Rate > 60; Glucose Random 77 mg/dL (60-115); HDL Cholesterol 87 mg/dL (>40); LDL Cholesterol Calculated 176 mg/dL (<100); Potassium 4.3 mmol/L (3.3-5.1); Sodium 143 mmol/L (135-145); Total Protein 6.7 g/dL (6.5-8.0); Triglycerides 79 mg/dL (<150)
[2023-07-21 14:12] LABS: Vitamin D 25-OH Total 37.9 ng/mL (>30)
[2023-07-25 11:23] LABS: Apolipoprotein A1 193 mg/dL (>=125); Apolipoprotein B 123 mg/dL (<90)
== END 2023-07-21 09:20 | disposition home or self-care (01) ==
LOC: HO.HMGCLDS 09:19
PROVIDERS: PCP Physician Assistant; Visit Provider Physician Assistant
DX: E78.01 Familial hypercholesterolemia (principal); E55.9 Vitamin D deficiency, unspecified
CPT/HCPCS: 36415; 80053; 80061; 82172; 82306; 83036; 85025

== ENCOUNTER 2024-01-12 08:00 | Outpatient (REF) | payer OTHER, SELFPAY ==
[2024-01-12 10:55] LABS: Alanine Aminotransferase 19 U/L (0-31); Alkaline Phosphatase 58 U/L (39-117); Anion Gap 12 (12-20); Aspartate Amino Transferase 21 U/L (5-31); Bilirubin Total 0.5 mg/dL (0.0-1.0); Blood Urea Nitrogen 14 mg/dL (9-16); C Reactive Protein < 0.04 mg/dL (< or = 0.50); Calcium 9.2 mg/dL (8.4-10.2); Carbon Dioxide 30 mmol/L (22-29); Chloride 104 mmol/L (96-108); Cholesterol 262 mg/dL (<200); Estimated Glomerular Filt Rate > 60; Glucose Random 85 mg/dL (60-115); HDL Cholesterol 75 mg/dL (>40); LDL Cholesterol Calculated 175 mg/dL (<100); Potassium 4.6 mmol/L (3.3-5.1); Sodium 141 mmol/L (135-145); Total Protein 6.4 g/dL (6.5-8.0); Triglycerides 61 mg/dL (<150)
[2024-01-17 12:39] LABS: Apolipoprotein A1 178 mg/dL (>=125); Apolipoprotein B 131 mg/dL (<90)
== END 2024-01-12 08:01 | disposition home or self-care (01) ==
LOC: HO.HMGCLDS 08:00
PROVIDERS: PCP Physician Assistant; Visit Provider Physician Assistant
DX: E78.00 Pure hypercholesterolemia, unspecified (principal)
CPT/HCPCS: 36415; 80053; 80061; 82172; 86140

== ENCOUNTER 2024-04-16 15:37 | Outpatient (REF) | payer OTHER, SELFPAY | END 2024-04-16 15:38 | disposition home or self-care (01) | LOC: HO.MAMMO 15:37 | PROVIDERS: PCP Internal Medicine; Visit Provider Internal Medicine | DX: Z12.31 Encounter for screening mammogram for malignant neoplasm of breast (principal) | CPT/HCPCS: 77063; 77067 ==

== ENCOUNTER → 2024-04-16 15:45 | Outpatient (BNV) | payer OTHER, SELFPAY | PROVIDERS: PCP Internal Medicine; Visit Provider Internal Medicine | DX: Z12.31 Encounter for screening mammogram for malignant neoplasm of breast (principal) | CPT/HCPCS: 77063; 77067 ==

== ENCOUNTER 2024-06-07 08:13 | Outpatient (REF) | payer OTHER, SELFPAY ==
--- OUTSIDE RECORDS SUMMARY | 2024-06-07 08:27 | XMS_ITS | Data Portability ---
Author Organization [facility], Home Service Address [address] [place] [address] Assessment Encounter Date Assessment Date Assessment LastModified by Organization Details LastModified Time 05/11/2021 05/11/2021 Patient agreed and verbally consents to this audio and video Telehealth appt via a secure platform [email or web address] Not available 05/11/2021 11:27:58 Plan of Treatment Reminders Order Date Submit Date Provider Last Modified By Organization Details Last Modified Time Details Appointments ANNUAL EXAM 2025 03:45P DANTE BONILLA Not available Not available Not available Lab vitamin D, 25-hydrox y, total, serum 2022 023 [facility], [place], [address], 05/10/2022 15:11:53 hepatic function panel, serum 2022 023 [facility], [place], [address], 05/10/2022 15:11:53 CMP, serum or plasma 2022 023 [facility], [place], [address], 05/10/2022 15:11:53 CBC w/ auto diff 2022 023 [facility], [place], [address], 05/10/2022 15:11:53 lipid panel, blood 2022 023 [facility], [facility] [place] [address] [address], [address], 05/10/2022 15:11:53 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, blood or tissue - blood test 2023 024 [email or web address] [facility], [address], [place], [address], 05/16/2023 14:07:50 apolipopr otein A-I + A-II + B + C panel, QN, serum or plasma 2023 024 [facility], [address] [place] [address], [id number], 05/16/2023 14:08:54 lipid panel, serum 2023 024 [facility], [address] [place] [address], [id number], 06/02/2023 17:22:17 CMP, serum or plasma 2023 024 [facility], [address] [place] [address], [id number], 06/02/2023 17:22:17 CBC w/ auto diff 2023 024 [facility], [address] [place] [address], [id number], 06/02/2023 17:22:17 lipoprote in-associ ated phospholi pase A2 (pla2), serum 2024 025 [facility], [address] [place] [address], [id number], 05/19/2024 16:44:01 lipid panel, serum 2024 025 [facility], [address] [place] [address], [id number], 05/19/2024 16:44:01 CMP, serum or plasma 2024 025 [facility], [address] [place] [address], [id number], 05/19/2024 16:44:01 CBC w/ auto diff 2024 025 [facility], [address] [place] [address], [id number], 05/19/2024 16:44:01 Referral None recorded. Procedures None recorded. Surgeries None recorded. Imaging bone density - due for repeat bone scan 2022 023 [facility], [address] [place] [address], [id number], 05/24/2022 10:39:28 bone density 2024 025 [facility], [address] [place] [address], [address], 05/25/2024 08:22:02 MRI, breast, bilateral , w/wo contrast - dense breast tissue, sig family hx of breast cancer, MM cannot fully access for malignanc y MM cannot fully access for malignanc y 2024 025 [facility], [address] [place] [address] [place], [address], 05/28/2024 10:28:27 Medication Orders prednison e 10 mg tablet 2022 023 [email or web address] [id number], [address] [place], [address], 05/16/2023 13:33:57 Linzess 72 mcg capsule 2023 024 [email or web address] [id number], [address] [place], [address], 06/09/2023 10:51:01 clobetaso l 0.05 % topical cream 2023 024 [id number], [address] [place], [address], 05/16/2023 14:14:28 fluticaso ne propionat e 50 mcg/actua tion nasal spray,barbara pension 2023 024 [id number], [address] [place], [address], 08/19/2023 16:21:31 Patient TargetsNo targets recorded. Patient InstructionsNo instructions recorded. Reason for Referral None Reported. Results Created Date Observation Date Name Description Value Unit Range Abnormal Flag Note LastModifiedBy Organization Detail LastModifiedTime 05/02/19 22 05/01/2021 MRI, cervi danny spine , w/wo contr ast No observ ation record ed. [facility] [address], [place], [address], 05/02/2021 13:55:24 10/23/19 22 10/17/2021 US, ramona méndez s, lower extre mity No observ ation record ed. [facility] [address], [place], [address], 10/22/2021 13:38:10 11/16/19 22 01/07/2020 bone densi ty No observ ation record ed. [facility] [address], [place], [address], 11/16/2021 08:49:59 02/28/20 22 02/22/2022 US, clark aparicio, abdom inal aorta No observ ation record ed. VÍCTOR Not Available 2021 08:09:48 05/30/19 23 05/30/2022 bone densi ty No observ ation record ed. [facility] [address] [facility], [place], [address], 05/31/2022 09:41:01 07/30/19 23 07/26/2022 CT, coron pal calci um score No observ ation record ed. [email or web address] [facility] [address] [place], [address], 07/30/2022 09:12:07 09/25/19 23 09/18/2022 imagi ng/di agnos tic resul t No observ ation record ed. [facility] [address] , [place], [address], 09/24/2022 12:10:16 03/23/20 23 03/03/2023 MAMMO , anita egnel, digit al, bilat eral No observ ation record ed. [address] [place], [address], 03/24/2023 08:36:35 01/20/20 24 01/16/2024 US, duple x, renal arter y No observ ation record ed. [facility] [address] [facility], [place], [address], 01/20/2024 08:48:28 04/01/20 24 03/31/2024 CT, abdom en + pelvi s, w/o contr ast No observ ation record ed. [facility] [address] [address], [place], [address], 04/02/2024 12:09:00 04/28/1904/16/2024 MAMMO , scree toro, digit al, bilat eral No observ ation record ed. [email or web address] [address] [place], [address], 04/28/2024 19:00:16 Result Notes None recorded. 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 Not Available [facility] 2 10:18:57 Osteopor osis 59128061 Active 2020 Not Available [facility] 2 10:18:57 Dysuria 75873240 Active 2021 Not Available [facility] 2 10:18:57 Aneurysm of splenic artery 85562045 Active 2021 DANTE JEAN BAPTISTE [address] [place], [address], [facility] 2 09:13:53 Injectio n site inflamma tion 41260615 Active 2021 DANTE JEAN BAPTISTE [address] [place], [address], [facility] 2 11:47:32 Kidney stone 97685720 Active 2022 DANTE JEAN BAPTISTE [address] [place], [address], [facility] 3 14:21:48 Vitamin D deficien cy 79997555 Active 2022 DANTE JEAN BAPTISTE [address] [place], [address], [facility] 3 14:24:02 Osteopen ia 850188820 Active 2022 DANTE JEAN BAPTISTE [address] [place], [address], [facility] 3 14:11:03 Hyperlip idemia 78316138 Active 2022 DANTE JEAN BAPTISTE [address] [place], [address], [facility] 3 15:42:47 Constipa tion 05850609 Active 2023 DANTE JEAN BAPTISTE [address] [place], [address], [facility] 4 13:52:05 Aneurysm of spinal artery 7392175 Active 2023 DANTE JEAN BAPTISTE [address] [place], [address], [facility] 4 14:09:15 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 278463036 Active 2023 DANTE JEAN BAPTISTE [address] [place], [address], [facility] 4 14:09:16 Vesicula r hand eczema 750467237 Active 2023 DANTE JEAN BAPTISTE [address] [place], [address], [facility] 4 14:14:11 Chronic constipa tion 748117192 Active 2023 DANTE JEAN BAPTISTE [address] [place], [address], [facility] 4 14:49:18 Allergic rhinitis 26205938 Active 2023 DANTE JEAN BAPTISTE [address] [place], [address], [facility] 4 16:20:03 Impacted cerumen in right ear 30644636299 10525 Active 2023 DANTE JEAN BAPTISTE [address] [place] [address], [address], [facility] 4 16:25:00 Tinnitus 75572062 Active 2023 DANTE JEAN BAPTISTE [address] [place], [address], [facility] 4 08:55:40 Pelvic floor dysfunct ion 452202963 Active 2023 DANTE JEAN BAPTISTE [address] [place], [address], [facility] 4 12:08:29 Hypercho lesterol emia 78874071 Active 2017 Good RR Not Available [facility] 2 10:18:57 Heteroge neously dense breast composit ion 602827648 Active 2024 DANTE JEAN BAPTISTE [address] [place], [address], [facility] 5 16:22:45 Dupuytre n's contract ure of finger 862304879 Active 2024 DANTE JEAN BAPTISTE [address] [place], [address], [facility] 5 16:33:31 Notes:only has the left kidn ey Problem Notes None recorded. Procedures Surgical History None recorded. Imaging Results Imaging Date Name Status LastModified by Organiz ation Details LastModified Time 05/01/2021 MRI, cervical spine, w/wo contrast completed [facility] [address], [place], [address], 05/02/2021 13:55:24 10/17/2021 US, duplex, venous, lower extremity completed [facility] [address], [place], [address], 10/22/2021 13:38:10 01/07/2020 bone density completed [facility] [address], [place], [address], 11/16/2021 08:49:59 02/22/2022 US, duplex, abdominal aorta completed VÍCTOR Information not available 02/28/2022 08:09:48 05/30/2022 bone density completed [facility] [address] [facility], [place], [address], 05/31/2022 09:41:01 07/26/2022 CT, coronary calcium score completed [email or web address] [facility] [address] [place], [address], 07/30/2022 09:12:07 09/18/2022 imaging/diagn ostic result completed [facility] [address], [place], [address], 09/24/2022 12:10:16 03/03/2023 MAMMO, screening, digital, bilateral completed [address] [place], [address], 03/24/2023 08:36:35 01/16/2024 US, duplex, renal artery completed [facility] [address] [facility], [place], [address], 01/20/2024 08:48:28 03/31/2024 CT, abdomen + pelvis, w/o contrast completed [email or web address] [facility] [address] [address], [place], [address], 04/02/2024 12:09:00 04/16/2024 MAMMO, screening, digital, bilateral completed [email or web address] [address] [place], [address], 04/28/2024 19:00:16 Procedure Notes None recorded. Medical Equipment None Reported. Allergies Allergen ID Allergen Name Allergen Category Reaction Reaction Severity Criticality Documentation Date Start Date Code Code System Note Provider Name and Address Organization Details Recorded Time 3154 Product containin g penicilli n and antibioti c (product) medicatio n rash Not available Not available 10/27/2018 19867 05 SNOMED [facility] 9 10:18:39 5324 Macrobid medicatio n nausea moderate Not available 05/11/2021 53697 1 RxNorm DANTE JEAN BAPTISTE [address] [facility], [place], [address], [facility] 2 11:13:41 984 amoxicill in medicatio n rash Not available Not available 08/15/2017 723 RxNorm Bebe walker [facility] 8 08:29:49 985 Substance with sulfonami de structure and antibacte rial mechanism of action (substanc e) medicatio n rash Not available Not available 08/15/2017 13667 8003 SNOMED Bebe walker [facility] 8 08:29:59 Medications Name Sig Start Date Stop Date Status Note LastModified by Organization Details LastModified Time Prescript ion - New 05/31 completed gabapent in Not Available Not Available Not Available Prescript ion - Prior Authoriza tion Request 05/31 completed Not Available Not Available Not Available cyclobenz aprine 10 mg tablet 08/15 completed Not Available Not Available Not Available amoxicill in 500 mg capsule 08/15 completed Not Available Not Available Not Available fluconazo le 100 mg tablet TAKE 1 TABLET BY MOUTH EVERY DAY 05/10 completed Not Available Not Available Not Available desonide 0.05 % topical cream PLEASE SEE ATTACHED FOR DETAILED DIRECTIO NS active Not Available Not Available No t Available prednison e 10 mg tablet TAKE 1 TABLET BY MOUTH EVERY DAY NEEDED 05/16 completed Not Available Not Available Not Available gabapenti n 600 mg tablet TAKE 1 TABLET BY MOUTH EVERY NIGHT 05/10 completed Not Available Not Available Not Available doxycycli ne hyclate 100 mg capsule Take 1 capsule twice a day by oral route for 5 days. 10/04 completed Not Available Not Available Not Available cefuroxim e axetil 250 mg tablet 08/15 completed Not Available Not Available Not Available ketoconaz ole 2 % shampoo PLEASE SEE ATTACHED FOR DETAILED DIRECTIO NS 05/16 completed Not Available Not Available Not Available tizanidin e 2 mg tablet TAKE 1 TABLET BY MOUTH FOUR TIMES A DAY 05/10 completed Not Available Not Available Not Available clindamyc in HCl 300 mg capsule TAKE 1 CAPSULE BY MOUTH EVERY 6 HOURS 05/10 completed Rash on chest a couples weeks after taking Not Available Not Available Not Available trazodone 50 mg tablet TAKE 1/2 TABLET BY MOUTH DAILY 30 MINS TO 1 HOUR BEFORE BED active Not Available Not Available No t Available cetirizin e 10 mg tablet 09/29 completed Not Available Not Available Not Available amitripty line 75 mg tablet TAKE 1 TABLET BY MOUTH EVERYDAY AT BEDTIME 05/19 completed Not Available Not Available Not Available tizanidin e 4 mg tablet TAKE 1 TABLET BY MOUTH FOUR TIMES A DAY NEEDED FOR SPASM 05/19 completed Not Available Not Available Not Available fluconazo le 150 mg tablet Take 1 tablet every day by oral route for 2 days. 05/10 completed Not Available Not Available Not Available dronabino l 5 mg capsule TAKE 1 CAPSULE BY MOUTH TID A DAY 05/10 completed Not Available Not Available Not Available valacyclo vir 1 gram tablet TAKE 1 TABLET BY MOUTH EVERY 8 HOURS FOR 7 DAYS 05/31 completed Not Available Not Available Not Available hydrocodo ne 5 mg-acetam inophen 325 mg tablet TAKE 1 TABLET BY MOUTH EVERY 6 HOURS NEEDE FOR PAIN 05/10 completed Not Available Not Available Not Available phenazopy ridine 200 mg tablet Take 1 tablet 3 times a day by oral route for 14 days. 05/11 completed Not Available Not Available Not Available prednison e 20 mg tablet TAKE 2 TABLETS BY MOUTH TWICE A DAY 05/16 completed Not Available Not Available Not Available prednison e 5 mg tablet TAKE 1 TABLET BY MOUTH EVERY DAY FOR 30 DAYS 05/16 completed Not Available Not Available Not Available clobetaso l 0.05 % topical cream APPLY THIN COAT TO AFFECTED AREA TWICE A DAY active Not Available Not Available No t Available clindamyc in HCl 150 mg capsule TAKE 2 CAPSULES BY MOUTH TO START, THEN TAKE 1 CAPSULE EVERY 6 HOURS TIL FINISHED 05/19 completed Not Available Not Available Not Available topiramat e 25 mg tablet TAKE 1 TAB TWICE DAILY FOR 7 DAYS AND THEN DISCONTI NUE 05/10 completed Not Available Not Available Not Available morphine ER 30 mg tablet,ex tended release TAKE 1 TABLET BY MOUTH TWICE A DAY 05/16 completed Not Available Not Available Not Available tramadol 50 mg tablet TAKE 1 TABLET BY MOUTH EVERY 6 HOURS NEEDED FOR SEVERE PAIN. 05/16 completed Not Available Not Available Not Available triamcino lone acetonide 0.1 % topical cream APPLY TWICE DAILY TO ECZEMA ON ABDOMEN AND BACK X UP TO 2 WEEKS ON, 1 WEEK OFF REPEAT NEEDED 05/16 completed Not Available Not Available Not Available ondansetr on 8 mg disintegr ating tablet Place 1 tablet twice a day by translin gual route for 14 days. 05/16 completed Not Available Not Available Not Available baclofen 20 mg tablet TAKE 1 TABLET BY MOUTH FOUR TIMES A DAY, 1 MONTH SUPPLY active Not Available Not Available No t Available meloxicam 7.5 mg tablet 03/31 completed Not Available Not Available Not Available alendrona te 35 mg tablet TAKE 1 TABLET BY MOUTH EVERY WEEK 05/19 completed Not Available Not Available Not Available amitripty line 25 mg tablet PLEASE SEE ATTACHED FOR DETAILED DIRECTIO NS 05/19 completed Not Available Not Available Not Available topiramat e 25 mg sprinkle capsule TAKE 1 CAPSULE BY MOUTH TWICE A DAY 05/10 completed Not Available Not Available Not Available amitripty line 10 mg tablet Take 1 tablet every day by oral route at bedtime for 90 days. 05/16 completed Not Available Not Available Not Available baclofen 10 mg tablet PLEASE SEE ATTACHED FOR DETAILED DIRECTIO NS 05/10 completed Not Available Not Available Not Available bisacodyl 10 mg rectal supposito ry INSERT 1 SUPPOSIT ORY RECTALLY EVERY MORNING. 12/11 completed Not Available Not Available Not Available cephalexi n 500 mg capsule TAKE 1 CAPSULE BY MOUTH TWICE A DAY 05/10 completed Not Available Not Available Not Available naproxen sodium 550 mg tablet TAKE 1 TABLET BY MOUTH THREE TIMES A DAY FOR 3 DAYS THEN 3 TIMES A DAY NEEDED active Not Available Not Available No t Available misoprost ol 100 mcg tablet Take 1 tablet 3 times a day by oral route as needed for 30 days. 2024 active Not Available Not Available Not Avai lable Erythroci n (as stearate) 250 mg tablet Take 1 tablet every 6 hours by oral route. 03/31 completed Not Available Not Available Not Available gabapenti n 300 mg capsule TAKE 1 CAPSULE BY MOUTH EVERY DAY AT NIGHT 05/10 completed Not Available Not Available Not Available SB Low Dose ASA EC 81 mg tablet,de layed release Take 1 tablet every day by oral route. active Not Available Not Available No t Available dronabino l 10 mg capsule TAKE 1 CAPSULE TWICE A DAY BY ORAL ROUTE FOR 30 DAYS. 12/11 completed Not Available Not Available Not Available gabapenti n 100 mg capsule TAKE 1 CAPSULE BY MOUTH EVERY DAY AT NIGHT 05/10 completed Not Available Not Available Not Available ibuprofen 600 mg tablet TAKE 1 TABLET BY MOUTH 4 TIMES A DAY 05/16 completed Not Available Not Available Not Available levofloxa gonzales 500 mg tablet 08/15 completed Not Available Not Available Not Available colchicin e 0.6 mg tablet Take 2 tablets every day by oral route as directed for 30 days. active Not Available Not Available No t Available ketoconaz ole 2 % topical cream APPLY TWICE A DAY TO AFFECTED AREAS OF FACE AND EARS FOR MAINTENA NCE active Not Available Not Available No t Available oxybutyni n chloride 5 mg tablet Take 1 tablet twice a day by oral route for 90 days. 08/04 completed Not Available Not Available Not Available fluticaso ne propionat e 50 mcg/actua tion nasal spray,barbara pension SPRAY 1 SPRAY BY INTRANAS AL ROUTE EVERY DAY active Not Available Not Available No t Available betametha sone dipropion ate 0.05 % lotion APPLY TWICE DAILY TO AFFECTED AREA OF SCALP FOR UP TO 2 WEEKS ON, 1 WEEK OFF REPEAT NEEDED. 05/16 completed Not Available Not Available Not Available amitripty line 100 mg tablet TAKE 1 TABLET BY MOUTH EVERYDAY AT BEDTIME active Not Available Not Available No t Available doxycycli ne hyclate 100 mg tablet TAKE 1 TABLET BY MOUTH TWICE A DAY ON DAY OF INJECTIO N active Not Available Not Available No t Available naproxen 500 mg tablet 08/15 completed Not Available Not Available Not Available oxycodone 5 mg tablet Take 1 tablet every 6 hours by oral route as needed for 14 days. 12/11 completed Not Available Not Available Not Available magnesium 200 mg tablet Take 1 tablet every day by oral route at bedtime. 08/18 completed Not Available Not Available Not Available rosuvasta tin 10 mg tablet TAKE 1 TABLET BY MOUTH EVERY DAY FOR 30 DAYS active Not Available Not Available No t Available Multivita min 50 Plus tablet Take 1 tablet every day by oral route. 08/18 completed Not Available Not Available Not Available topiramat e 50 mg tablet TAKE 1 TABLET BY MOUTH TWICE A DAY 05/10 completed Not Available Not Available Not Available clobetaso l 0.05 % shampoo APPLY TO SCALP 2 TIMES PER WEEK IN SHOWER, LEAVE IN FOR 5 MINUTES, RINSE OUT active Not Available Not Available No t Available mirtazapi ne 7.5 mg tablet TAKE 1 TAB NIGHTLY FOR INSOMNIA 05/10 completed Not Available Not Available Not Available nitrofura ntoin monohydra te/macroc rystals 100 mg capsule Take 1 capsule every 12 hours by oral route for 7 days. 05/11 completed Not Available Not Available Not Available duloxetin e 30 mg capsule,d elayed release TAKE 1 CAPSULE BY MOUTH TWICE A DAY 05/10 completed Not Available Not Available Not Available lactulose 10 gram/15 mL oral solution TAKE 30ML BY MOUTH EVERY DAY NEEDED FOR 14 DAYS 05/19 completed Not Available Not Available Not Available tizanidin e 4 mg capsule TAKE 1 TABLET BY MOUTH 4 TIMES DAILY NEEDED FOR SPASM active Not Available Not Available No t Available pregabali n 50 mg capsule Take 2 capsules twice a day by oral route for 30 days. 05/10 completed Not Available Not Available Not Available meloxicam 03/31 completed Not Available Not Available Not Available senna 05/16 completed taking less of it Not Available Not Available Not Available Fish Oil 08/18 completed Not Available Not Available Not Available Stool Softener daily; OTC active Not Available Not Available No t Available gabapenti n 03/31 completed Not Available Not Available Not Available Calcium with Vitamin D Daily; OTC active Not Available Not Available No t Available co Q10-red yeast rice 08/18 completed Not Available Not Available Not Available Nucynta 75 mg tablet TAKE 1 TABLET BY MOUTH TWICE A DAY 05/10 completed Not Available Not Available Not Available Probiotic 08/18 completed Not Available Not Available Not Available Nucynta ER 50 mg tablet,ex tended release TAKE 1 TABLET BY MOUTH THREE TIMES A DAY active Not Available Not Available No t Available Myrbetriq 50 mg tablet,ex tended release TAKE 1 TABLET BY MOUTH EVERY DAY DIRECTED 05/10 completed Not Available Not Available Not Available Linzess 145 mcg capsule TAKE 1 CAPSULE BY MOUTH EVERY DAY 06/29 completed Not Available Not Available Not Available Linzess 72 mcg capsule active Not Available Not Available Not Available Trulance 3 mg tablet TAKE 1 TABLET BY MOUTH EVERY DAY FOR 30 DAYS active Not Available Not Available No t Available Shingrix (PF) 50 mcg/0.5 mL intramusc ular suspensio n, kit 05/31 completed Not Available Not Available Not Available baclofen 5 mg tablet Take 1 tablet 3 times a day by oral route for 90 days. 05/10 completed Not Available Not Available Not Available Flowflex COVID-19 Antigen Home Test kit 05/16 completed Not Available Not Available Not Available Vitals Date Recorded Body height Body mass index (BMI) Body weight Oxygen saturation Oxygen saturation in Arterial blood by Pulse oximetry Heart rate Systolic blood pressure Diastolic blood pressure Provider Name and Address Organization Details Last Updated DateTime 3 160.66 cm 19 kg/m2 35443.9 8 g 98 % 98 % 62 /min 100 mm[Hg] 60 mm[Hg] Theresa Chicas [facility] 3 13:38:33 Date Recorded Body weight Heart rate Oxygen saturation Oxygen saturation in Arterial blood by Pulse oximetry Systolic blood pressure Diastolic blood pressure Provider Name and Address Organization Details Last Updated DateTime 4 14847.1 8 g 80 /min 98 % 98 % 120 mm[Hg] 70 mm[Hg] Rosa Dillon [facility] 4 13:37:17 Date Recorded Body height Body mass index (BMI) Body weight Heart rate Oxygen saturation Oxygen saturation in Arterial blood by Pulse oximetry Systolic blood pressure Diastolic blood pressure Provider Name and Address Organization Details Last Updated DateTime 4 160.66 cm 20.6 kg/m2 87411.3 1 g 83 /min 96 % 96 % 116 mm[Hg] 62 mm[Hg] Hill Jiménez [facility] 4 16:07:16 Date Recorded Body height Body mass index (BMI) Body weight Heart rate Oxygen saturation Oxygen saturation in Arterial blood by Pulse oximetry Systolic blood pressure Diastolic blood pressure Provider Name and Address Organization Details Last Updated DateTime 5 160.02 cm 20.4 kg/m2 22680.1 2 g 84 /min 93 % 93 % 120 mm[Hg] 78 mm[Hg] DANTE JEAN BAPTISTE [address] [place], [address] 5 16:08:35 Social History Question Answer Notes LastModified by Organizat ion Details LastModified Time Tobacco Smoking Status Never Smoker Not Available [facility] 02/29/2020 03:36:24 What Was The Date Of Your Most Recent Tobacco Screening? 05/19/2024 [email or web address] Information not available 05/19/2024 Sex: Unknown Functional Status None recorded. Mental Status None recorded. Family History Relationship Description Onset Age of this Age Resolved Age Notes LastModified by Organization Details LastModified Time Mother Nonsquamous nonsmall cell neoplasm of lung [email or web address] Not available 2024 16:47:50 Medical History No medical history recorded. Gynecological HistoryNo gynecological history recorded. Obstetrics History GPAL:G 0 P 0 0 0 0 Immunizations Vaccine Type Date Status Note Provider Nam e and Address Organization Details Recorded Time Influenza, split virus, quadrivalent, preservative 1 completed Not Available [facility] 12/11/2022 09:42:48 COVID-19, mRNA, LNP-S, PF, 30 mcg/0.3 mL dose 1 completed [facility] 03/05/2021 08:34:14 COVID-19, mRNA, LNP-S, PF, 30 mcg/0.3 mL dose 2 completed Not Available [facility] 12/11/2022 09:42:48 COVID-19, mRNA, LNP-S, PF, 50 mcg/0.5 mL dose 2 completed Not Available [facility] 12/11/2022 09:42:48 zoster recombinant 2 completed Not Available [facility] 12/11/2022 09:42:48 zoster recombinant 2 completed Not Available [facility] 12/11/2022 09:42:48 influenza, unspecified formulation 2 completed Not Available [facility] 12/11/2022 09:42:48 Influenza, split virus, quadrivalent, preservative 9 completed Not Available [facility] 11/08/2020 09:44:49 zoster recombinant 9 completed Not Available [facility] 11/08/2020 09:44:49 Influenza, split virus, quadrivalent, preservative 0 completed Not Available [facility] 11/08/2020 09:44:49 COVID-19, mRNA, LNP-S, PF, 100 mcg/0.5mL dose or 50 mcg/0.25mL dose 1 completed Not Available [facility] 11/08/2020 09:44:49 COVID-19, mRNA, LNP-S, PF, 100 mcg/0.5mL dose or 50 mcg/0.25mL dose 1 completed Not Available [facility] 11/08/2020 09:44:49 Past Encounters Encounter ID Performer Location Encounter Start Date Encounter Closed Date Diagnosis/Indication Diagnosis SNOMED-CT Code Diagnosis ICD10 Code Diagnosis Note [id number] Shirlene Escobar NP, [facility] [address] [facility], [place] [address] 08/15/2017 14:21:53 08/15/2017 15:25:04 Bursitis of left shoulder 5761347434 60073 M75.52 [id number] Shirlene Escobar NP, [facility] [address] [place] [address], [place] [address] 09/29/2017 10:05:46 09/29/2017 17:11:03 Streptococcal infectious disease 22952184 A49.1 Cervical lymphadenopathy 001240590 R59.0 Malaise and fatigue 2717 55382 R53.81 f/u in office in 2 days [id number] Shirlene Escobar NP, [facility] [address] [facility], [place] [address] 10/01/2017 09:05:44 10/01/2017 10:28:19 Heart murmur 75574241 R01.1 f/u in office 1 week after exam Viral syndrome 287887306 B34.9 symptoms improved work note provided for this week [id number] Shirlene Escobar NP, [facility] [address] [place] [address] 10/27/2017 15:45:49 10/27/2017 16:37:31 Intermittent palpitations 666486216 R00.2 Hypercholesterolemia 136 01911 E78.00 Good RR, continue healthy lifestyle [id number] Shirlene Escobar NP, [facility] [address] [place] [address] 03/31/2018 09:27:19 03/31/2018 10:08:36 Diarrhea 03181076 R19.7 Family problems 77029822 4 Z63.79 discussed [id number] LEONCIO Villela [facility] [address] [place] [address] 10/27/2018 10:13:36 10/27/2018 11:48:51 Adult health examination 693639188 Z00.00 Active or passive immunization 047703347 Z23 Hypercholesterolemia 136 62567 E78.00 Microscopic hematuria 19 7106693 R31.21 s/p menopause no uti sx Vitamin D deficiency 347 35534 E55.9 Cellulitis 454062517 L03 .90 2/2 wasp or yellow jacket sting [id number] DANTE JEAN BAPTISTE [facility] [address] [place] [address] 03/07/2020 08:25:47 03/07/2020 15:47:24 Central cord syndrome of cervical spinal cord 647768890 S14.129A doing much better fu as needed Tetraplegia 78939070 G82 .53 doing well able to walk and move with limited assistance of walker [id number] DANTE JEAN BAPTISTE [facility] [address] [place] [address] 03/21/2020 11:47:00 03/21/2020 16:06:01 Osteopenia 935751521 M85.80 will start on alendronat e qdwk Spasm 06296464 R25.2 will check mag level Tetraplegia 77290330 G82 .54 doing well able to walk and move with limited assistance of walker improving Central co rd syndrome of cervical spinal cord 173044643 S14.129A doing better, still working on improving cloth printer helper strength and sensation [id number] DANTE JEAN BAPTISTE [facility] [address] [facility] [address] [address] 04/10/2020 11:43:36 04/10/2020 16:18:23 Herpes zoster 9801744 B02.9 looks like shingles rash following trigeminal pathway will see if improvemen t on valtrex and pred taper, concern is that is on her rigth eyelid, it being so close to her eye Central co rd syndrome of cervical spinal cord 944915030 S14.129A doing better, still working on improving cloth printer helper strength and sensation Tetraplegia 00844170 G82 .54 doing well able to walk and move with limited assistance of walker improving [id number] Berry Robles DO [facility] [address] [facility],[place] [address] 05/31/2020 14:54:50 05/31/2020 16:09:05 Central cord syndrome of cervical spinal cord 521543812 S14.129D long detailed discussion we will havce her see specialist tomorrow a dr zapata plan to increase her baclofen to 10 tid relates having issues with burning sensation and has had issues with this in the leg as well also she wishes to come off the oxycodone only taking this for the burning sensation in her hands and leg Hypercholesterolemia 136 03690 E78.00 will cont to follow and we will repeat lab shortly Lower limb spasticity 39 8137313 M62.838 she is only taking 5 mg tid we will increase to 10mg [id number] DANTE JEAN BAPTISTE [facility] [address] [facility],[place] [address] 09/27/2020 10:47:56 09/27/2020 11:12:04 Tetraplegia 11880630 G82.54 doing well able to walk and move with limited assistance of walker and even now without one improving and follows with her neuro and PT Peripheral venous insufficiency 46932100 I87.2 will address this at next visit so I can do a proper exam Bite of no nvenomous spider 290863740 W57.XXXS possibly a spider bite will start on short course of doxy [id number] DANTE JEAN BAPTISTE [facility] [address] [facility], [place] [address] 10/04/2020 16:20:05 10/04/2020 16:53:29 Central cord syndrome of cervical spinal cord 738532439 S14.129A doing better, still working on improving cloth printer helper strength and sensation Tetraplegia 51128436 G82 .54 doing well able to walk and move with limited assistance of walker and even now without one improving at home and follows with her neuro and PT Peripheral venous insufficiency 35765551 I87.2 mild varicose veins of the lower extremitie s, discussed with patient this is due to SCI [id number] DANTE JEAN BAPTISTE [facility] [address] [facility],[place] [address] 12/11/2020 15:45:26 12/11/2020 16:41:59 Active or passive immunization 604148090 Z23 advised Adult [facility] th examination 653659314 Z00.00 needs lab work Hypomagnesemia 973573638 E83.42 will recheck Anemia 619007321 D50.0 will fu with lab work [id number] DANTE JEAN BAPTISTE [facility] [address] [facility],[place] [address] 12/29/2020 09:39:24 01/02/2021 11:49:00 Central cord syndrome of cervical spinal cord 797550530 S14.129A doing better, still working on improving cloth printer helper strength and sensation Hypercholesterolemia 136 30863 E78.00 start red yeast rice and fish oil [id number] DANTE JEAN BAPTISTE [facility] [address] [facility] [address], [place] [address] 05/07/2021 09:53:25 05/07/2021 16:29:31 Dysuria 08604076 R30.0 will fu with treatment plan [id number] DANTE JEAN BAPTISTE [facility] [address] [facility] [address], [place] [address] 05/11/2021 09:17:34 05/18/2021 10:22:27 Tetraplegia 47828953 G82.54 recent fu, having an MRI with neurosurge ry Dysuria 07897570 R30.0 stop medication except anti-emeti c Nausea 324557021 R11.0 continue as needed if she is nauseous [id number] DANTE JEAN BAPTISTE [facility] [address] [facility] [address],[place] [address] 05/10/2022 13:24:42 05/14/2022 08:36:53 Active or passive immunization 463030466 Z23 advised Adult heal th examination 971879362 Z00.00 needs lab work Central co rd syndrome of cervical spinal cord 595505298 S14.129A will adjust to the 10 mg prednisone as needed on top of the 5 mg Screening for osteoporosis 422690006 Z13.820 will set up with bone density screeningn eeds recheck Kidney stone 11647923 N2 0.0 left kidneyonly has on kidney Aneurysm o f splenic artery 42992203 I72.8 seeing cardio for eval since her insurance denied the CTA for it Vitamin D deficiency 347 23474 E55.9 will recheck [id number] DANTE JEAN BAPTISTE [facility] [address] [facility] [address],[place] [address] 05/16/2023 13:27:15 05/16/2023 15:25:23 Constipation 49328449 K59.01 will try first with linzess, would like to try motegrity at the end Aneurysm o f spinal artery 8126702 I72.8 stable 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 978780650 G82.54 improving Adult heal th examination 746078497 Z00.00 needs lab workfor routine stuff Hyperlipidemia 53325062 E78.01 will recheck lipid levels Family his tory of breast cancer 960398032 Z80.3 found mutation her daughter haswill check for this Vesicular hand eczema 40 2089063 L30.8 will start on clobetasol to see if alleviates her symptoms [id number] DANTE JEAN BAPTISTE [facility] [address] [facility] [address],[place] [address] 08/19/2023 15:57:08 08/20/2023 08:22:19 Allergic rhinitis 74523569 J30.1 agreed to trying flonase and will use debrox on the Impacted c erumen in right ear 5197931005 262266 H61.21 will use debrox [id number] DANTE JEAN BAPTISTE [facility] [address] [facility] [address],[place] [facility] [place] [address] 05/19/2024 15:52:54 05/21/2024 08:08:28 Active or passive immunization 176899584 Z23 advised Adult heal th examination 643507088 Z00.00 BP is excellent Heterogene ously dense breast composition 034158414 R92.2 suggested MRI Dupuytren' s contracture of finger 099687652 M72.0 bilaterall y, seeing hand specialist , does not need surgery at this time Osteoporosis 64088150 M8 1.0 will set up bone density, due for two year checkhas only been doing the calcium and vit d due to intoleranc e of the alendronat e Hyperlipidemia 30046743 E78.01 will recheck lipid levels Health Concerns Section Related Observation LastModified by Organization Detai ls LastModified Time None Recorded Concern Status LastModified by Organization Details LastModified Time None Recorded Advance Directives Directive None Recorded Payers Encounter Date Sequence Insurance Name Policy Number Policy Dennis Covered Member ID Dennis Member ID Guarantor Name 05/11/2021 1 [facility] [id number] 1 Vincent Cuevas [id number] Vincent Cuevas 05/10/2022 1 [facility] [id number] Vincent Cuevas [id number] Vincent Cuevas 05/16/2023 1 [facility] [id number] 1 Vincent Cuevas [id number] Vincent Cuevas 08/19/[address] [place] [address] [id number] 1 Vincent Cuevas [id number] Vincent Cuevas 05/19/2024 1 [facility] [id number] 1 Vincent Cuevas [id number] Vincent Cuevas Notes Date Note Type Note Provider Name a nd Address Organization Details Recorded Time 2 text/html c/o fever, UTI symptoms telemed phone callpatient consents to phone call the patient reports that she couldn't get the orginal script until Fridaywoke up on Friday having severe nausea, lack of appetitethe patient reports that she slept most of the day Friday, reports weakness on , she reports a Tmax of 100.6 Fthe patient reports that she immediately started taking ibuprofen for the fever still lack of appetite today but improvingreports pounding headache today and yesterday macrobid does cause these side effectswill stoponly continue anti-emetic DANTE JEAN BAPTISTE [address] [place], [address], [facility] 05/11/2021 11:35:03 3 text/html Annual WellnessReported bypatient.Diet and Nutrition:healthy diet; discussed vitamin and supplement use; discussed portion control; discussed maintaining calcium balance; discussed diet improvement Physical Activity:exercises on a regular basis; recent increase in physical activity; good physical condition; discussed weightbearing activities; discussed exercise habits; does yoga walks does chair yoga at [employer] in [place] Additional Lifestyle Factors:no tobacco use; no alcohol intake Depression Risk:never feels sad, empty, or tearful; no loss of interest in activities; no significant changes in weight; no sleep disturbances or insomnia; no agitation; no loss of energy; no feelings of worthlessness or guilt; no thoughts of suicide; no history of depression; no history of mood disorders Hearing:no loss of hearing Vision:no vision problems the patient had her rectocele surgery in Feb. no complicationsis having mild constipation, will have a fu with gen surg soon for recheck(currently using miralax, mag 400 mg, rectal suppository, and stool softener)the patient was on senna before but caused to much nausea the patient isn't sure if the nerve issue she has from her spinal cord injury and/or the rectocele (hx of prior constipation, hysterectomy and spinal cord injury) the patient reports that she is concerned due to constipation possibly causing a recurrent rectocele the patient uses the suppository every other day as needed saw Dr. Monteiro yesterday as well (her physiotherapist)discu ssed how to take the pred, when to dose adjust and how to properly taper the dosage down using a transport service DANTE JEAN BAPTISTE [address] [facility], [place], [address], [facility] 05/10/2022 14:28:42 4 text/html Annual WellnessReported bypatient.Diet and Nutrition:healthy diet; discussed vitamin and supplement use; discussed portion control; discussed maintaining calcium balance; discussed diet improvement Fracture Risk:no history of fractures; no recent explained fracture; no sudden unexplained fractures; no previous musculoskeletal injuries Physical Activity:discussed weightbearing activities; discussed exercise habits Additional Lifestyle Factors:no tobacco use; no alcohol intake Depression Risk:never feels sad, empty, or tearful; no loss of interest in activities; no significant changes in weight; no sleep disturbances or insomnia; no agitation; no loss of energy; no feelings of worthlessness or guilt; no thoughts of suicide; no history of depression; no history of mood disorders Hearing:no loss of hearing Vision:no vision problems the patient started getting botox injections for the stiffness of ther L/E/sno improvementwas started on zeomindenies any injections site reactionsthe patient denies any serious side effects, some mild weakness the patient reports that it is intermittent with the weakness will be discussing an increased dosage nucynta is working good for patienthad to get it approved through insurance did have to use oxy and morphine before the approved it againhad issues with the nausea and fogginess on the medications reports that year has been good for her still doing yoga, stretching 2 days a week, and personal training circuit class that has been helping has been using a mix of a suppository and senna for the severe constipation DANTE JEAN BAPTISTE [address] [place], [address], [facility] 05/16/2023 14:20:27 4 text/html c/o tinnitus in the bilateral ears the patient is still having the ringing in the earsR side, more so than left sidehearing is stable, no changes does note she is having nasal congestion, sinus pressure, headaches headache could have been a side effect to the Zeoman, it will taper off otherwise doing well DANTE JEAN BAPTISTE [address] [place], [address], [facility] 08/19/2023 16:28:55 5 text/html Annual WellnessReported bypatient.Diet and Nutrition:healthy diet; discussed vitamin and supplement use; discussed portion control; discussed maintaining calcium balance; discussed diet improvement Fracture Risk:no history of fractures; no recent explained fracture; no sudden unexplained fractures; no previous musculoskeletal injuries Physical Activity:exercises on a regular basis; recent increase in physical activity; good physical condition Additional Lifestyle Factors:no tobacco use; drinks alcohol (mild-moderate) Depression Risk:never feels sad, empty, or tearful; no loss of interest in activities; no significant changes in weight; no sleep disturbances or insomnia; no agitation; no loss of energy; no feelings of worthlessness or guilt; no thoughts of suicide; no history of depression; no history of mood disorders Hearing:no loss of hearing Vision:no vision problems the patient had been doing well with the adjustment to the misoprostol 100 mg QID, currently takes it at breakfast, lunch and dinner and before bedreports very loose stool, will take away night-time dose DANTE JEAN BAPTISTE [address] [place], [address], [facility] 05/19/2024 16:59:49 OBGyn Episode No OBEpisode recorded.
--- OUTSIDE RECORDS SUMMARY | 2024-06-07 08:27 | XMS_ITS | Clinical Summary ---
Author Organization [facility] [place] Address [address] [place] [address] Care Team Providers Care Maturity Checker Name Role Phone Berry Robles DO Primary Care Provider [phone] Social History Tobacco Use Types Packs/Day Years Used Date Smoking Tobacco: Never Assessed Comments Unknown Sex and Gender Information Value Date Recorded Sex Assigned at Not on file Legal Sex Female 11:16 PM EST Gender Identity Not on file Sexual Orientation Not on file Last Filed Vital Signs Vital Sign Reading Time Taken Comments Blood Pressure - - Pulse - - Temperature - - Respiratory Rate - - Oxygen Saturation - - Inhaled Oxygen Concentration - - Weight 52.6 kg (116 lb) 02/23/2024 2:47 PM EDT Height 160 cm (5' 3 ) 02/23/2024 2:47 PM EDT Body Mass Index 20.55 02/23/2024 2:47 PM EDT Plan of Treatment Upcoming Encounters Date Type Department Care Team (Late st Contact Info) Description 08/23/2024 10:00 AM EDT Office Visit Orthopedic Surgery - [place] [address] [facility] [address] [place] [address] Karen Cruz PA [address] [facility] [address] [place] [address] Health Maintenance Due Date Last Done Comments Breast Cancer Screening 1960 DTaP,Tdap,and Td Vaccines (1 - Tdap) 1966 Cervical Cancer Screening: P ap Smear 01/19/1980 Pneumococcal Vaccine: 50+ Ye ars (1 of 1 - PCV) 2009 Zoster Vaccines (1 of 2) 2009 COVID-19 Vaccine ( - 2023-2 5 season) 2023 Influenza Vaccine (#1) 2023 Colorectal Cancer Screening: Colonoscopy 02/20/2024 Depression Screening 02/20/2024 Falls Risk Assessment 02/20/2024 Hepatitis C Screening 02/20/2024 Osteoporosis Screening (Bone Density Screening) 02/20/2024 Social Influencers of Health Screening 02/20/2024 RSV Immunization Patients 60 + Years Old (1 - 1-dose 75+ series) 2034 HIB Vaccines Aged Out No longer eligi ble based on patient's age to complete this topic HPV Vaccines Aged Out No longer eligi ble based on patient's age to complete this topic Hepatitis A Vaccines Aged Out No long er eligible based on patient's age to complete this topic Hepatitis B Vaccines Aged Out No long er eligible based on patient's age to complete this topic IPV Vaccines Aged Out No longer eligi ble based on patient's age to complete this topic MMR Vaccines Aged Out No longer eligi ble based on patient's age to complete this topic Meningococcal ACWY Vaccine Aged Out N o longer eligible based on patient's age to complete this topic Meningococcal B Vacine Aged Out No lo nger eligible based on patient's age to complete this topic Pneumococcal Vaccine: Pediat rics (0 to 5 Years) and At-Risk Patients (6 to 64 Years) Aged Out No longer eligible b ased on patient's age to complete this topic RSV Immunization Patients Un riddhi 20 months Aged Out No longer eligible b ased on patient's age to complete this topic Varicella Vaccines Aged Out No longer eligible based on patient's age to complete this topic Advance Directives Documents on File Type Date Recorded 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
--- OUTSIDE RECORDS SUMMARY | 2024-06-07 08:27 | XMS_ITS | Continuity of Care Document ---
Author Organization [facility], [facility] Address [address] [place] [address] [place] [address] Assessment No assessment recorded. Plan of Treatment Reminders Order Date Submit Date Provider Last Modified By Organization Details Last Modified Time Details Appointments ANNUAL EXAM 2025 03:45P DANTE BONILLA Not available Not available Not available Lab lipoprote in-associ ated phospholi pase A2 (pla2), serum 2024 025 [facility], [address] [place] [place] [address], [address], 05/19/2024 16:44:01 lipid panel, serum 2024 025 [facility], [address] [place] [place] [address], [address], 05/19/2024 16:44:01 CMP, serum or plasma 2024 025 [facility], [address] [place] [place] [address], [address], 05/19/2024 16:44:01 CBC w/ auto diff 2024 025 [facility], [address] [place] [place] [address], [address], 05/19/2024 16:44:01 Referral None recorded. Procedures None recorded. Surgeries None recorded. Imaging bone density 2024 025 [facility], [address] [place] [address], [address], 05/25/2024 08:22:02 MRI, breast, bilateral , w/wo contrast - dense breast tissue, sig family hx of breast cancer, MM cannot fully access for malignanc y MM cannot fully access for malignanc y 2024 025 [facility], [address] [place] [address] [place], [address], 05/28/2024 10:28:27 Medication Orders None recorded. Patient TargetsNo targets recorded. Patient InstructionsNo instructions recorded. Reason for Referral None Reported. Results Created Date Observation Date Name Description Value Unit Range Abnormal Flag Note LastModifiedBy Organization Detail LastModifiedTime 04/28/1904/16/2024 MAMMO , anita engel, digit al, bilat eral No observ ation record ed. [email or web address] [address] [place], [address], 04/28/2024 19:00:16 Result Notes None recorded. 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 Not Available [facility] 2 10:18:57 Osteopor osis 78010169 Active 2020 Not Available [facility] 2 10:18:57 Dysuria 66460203 Active 2021 Not Available [facility] 2 10:18:57 Aneurysm of splenic artery 37233116 Active 2021 DANTE JEAN BAPTISTE [address] [place] [address], [address], [facility] 2 09:13:53 Injectio n site inflamma tion 52416330 Active 2021 DANTE JEAN BAPTISTE [address] [place], [address], [facility] 2 11:47:32 Kidney stone 91052218 Active 2022 DANTE JEAN BAPTISTE [address] [place], [address], [facility] 3 14:21:48 Vitamin D deficien cy 76028764 Active 2022 DANTE JEAN BAPTISTE [address] [place], [address], [facility] 3 14:24:02 Osteopen ia 911641874 Active 2022 DANTE JEAN BAPTISTE [address] [place], [address], [facility] 3 14:11:03 Hyperlip idemia 22908443 Active 2022 DANTE JEAN BAPTISTE [address] [place], [address], [facility] 3 15:42:47 Constipa tion 54300297 Active 2023 DANTE JEAN BAPTISTE [address] [place], [address], [facility] 4 13:52:05 Aneurysm of spinal artery 7506501 Active 2023 DANTE JEAN BAPTISTE [address] [place], [address], [facility] 4 14:09:15 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 874310636 Active 2023 DANTE JEAN BAPTISTE [address] [place], [address], [facility] 4 14:09:16 Vesicula r hand eczema 957346878 Active 2023 DANTE JEAN BAPTISTE [address] [place], [address], [facility] 4 14:14:11 Chronic constipa tion 225965667 Active 2023 DANTE JEAN BAPTISTE [address] [place], [address], [facility] 4 14:49:18 Allergic rhinitis 76878230 Active 2023 DANTE JEAN BAPTISTE [address] [place], [address], [facility] 4 16:20:03 Impacted cerumen in right ear 03295929831 77319 Active 2023 DANTE JEAN BAPTISTE [address] [place], [address], [facility] 4 16:25:00 Tinnitus 67391909 Active 2023 DANTE JEAN BAPTISTE [address] [place], [address], [facility] 4 08:55:40 Pelvic floor dysfunct ion 443060391 Active 2023 DANTE JEAN BAPTISTE [address] [place], [address], [facility] 4 12:08:29 Hypercho lesterol emia 57718277 Active 2017 Good RR [facility] Available [facility] 2 10:18:57 Heteroge neously dense breast composit ion 192862498 Active 2024 DANTE JEAN BAPTISTE [address] [place], [address], [facility] 5 16:22:45 Duplety reyes's contract ure of finger 550996011 Active 2024 DANTE JEAN BAPTISTE [address] [place], [address], [place] [facility] 5 16:33:31 Notes:only has the left kidn ey Problem Notes None recorded. Medical Equipment None Reported. Allergies Allergen ID Allergen Name Allergen Category Reaction Reaction Severity Criticality Documentation Date Start Date Code Code System Note Provider Name and Address Organization Details Recorded Time 3152 Product containin g penicilli n and antibioti c (product) medicatio n rash Not available Not available 10/27/2018 64590 05 SNOMED Bernadette Escobarnirlai walker [facility] 9 10:18:39 5324 Macrobid medicatio n nausea moderate Not available 05/11/2021 97560 1 RxNorm DANTE JEAN BAPTISTE [address] [place] [address], [address], [facility] 2 11:13:41 984 amoxicill in medicatio n rash Not available Not available 08/15/2017 723 RxNorm Bebe walker [facility] 8 08:29:49 985 Substance with sulfonami de structure and antibacte rial mechanism of action (substanc e) medicatio n rash Not available Not available 08/15/2017 66941 8003 SNOMED Bebe walker [facility] 8 08:29:59 Medications Name Sig Start Date [...] Updated DateTime 5 160.02 cm 20.4 kg/m2 34016.1 2 g 84 /min 93 % 93 % 120 mm[Hg] 78 mm[Hg] DANTE JEAN BAPTISTE [address] [place], [address] [place] - [facility] 5 16:08:35 Social History Question Answer Notes LastModified by Organizat ion Details LastModified Time Tobacco Smoking Status Never Smoker Not Available [facility] 02/29/2020 03:36:24 What Was The Date Of [...] virus, quadrivalent, preservative 1 completed Not Available [facility] 12/11/2022 09:42:48 COVID-19, mRNA, LNP-S, PF, 30 mcg/0.3 mL dose 1 completed Theresa walker [facility] 03/05/2021 08:34:14 COVID-19, mRNA, LNP-S, PF, 30 mcg/0.3 mL dose 2 completed Not Available [facility] 12/11/2022 09:42:48 COVID-19, mRNA, LNP-S, PF, 50 mcg/0.5 mL dose 2 completed Not Available [facility] 12/11/2022 09:42:48 zoster recombinant 2 completed Not Available [facility] 12/11/2022 09:42:48 zoster recombinant 2 completed Not Available [facility] 12/11/2022 09:42:48 influenza, unspecified formulation 2 completed Not Available [facility] 12/11/2022 09:42:48 Influenza, split virus, quadrivalent, preservative 9 completed Not Available [facility] 11/08/2020 09:44:49 zoster recombinant 9 completed Not Available [facility] 11/08/2020 09:44:49 Influenza, split virus, quadrivalent, preservative 0 completed Not Available [facility] 11/08/2020 09:44:49 COVID-19, mRNA, LNP-S, PF, 100 mcg/0.5mL dose or 50 mcg/0.25mL dose 1 completed Not Available [facility] 11/08/2020 09:44:49 COVID-19, mRNA, LNP-S, PF, 100 mcg/0.5mL dose or 50 mcg/0.25mL dose 1 completed Not Available [facility] 11/08/2020 09:44:49 Past Encounters Encounter ID Performer Location Encounter Start Date Encounter Closed Date Diagnosis/Indication Diagnosis SNOMED-CT Code Diagnosis ICD10 Code Diagnosis Note [id number] DANTE JEAN BAPTISTE [facility] [address],[place] [address] 05/19/2024 15:52:54 05/21/2024 08:08:28 Active or passive immunization 727663544 Z23 advised Adult heal th examination 395990681 Z00.00 BP is excellent Heterogene ously dense breast composition 548749461 R92.2 suggested MRI Dupuytren' s contracture of finger 172140578 M72.0 bilaterall y, seeing hand specialist , does not need surgery at this time Osteoporosis 50050001 M8 1.0 will set up bone density, due for two year checkhas only been doing the calcium and vit d due to intoleranc e of the alendronat e Hyperlipidemia 27472866 E78.01 will recheck lipid levels Health Concerns Section Related Observation LastModified by Organization Detai ls LastModified Time None Recorded Concern Status LastModified by Organization Details LastModified Time None Recorded Payers Encounter Date Sequence Insurance Name Policy Number Policy Dennis Covered Member ID Dennis Member ID Guarantor Name 05/19/2024 1 [facility] [id number] 1 Vincent Cuevas [id number] Vincentdonnell Cuevas Notes Date Note Type Note Provider Name a nd Address Organization Details Recorded Time 5 text/html Annual WellnessReported bypatient.Diet and Nutrition:healthy [...] take away night-time dose DANTE JEAN BAPTISTE [address] [place] [address], [address], [facility] 05/19/2024 16:59:49 OBGyn Episode No OBEpisode recorded.
[2024-06-07 09:58] LABS: MANUAL DIFF FLAG NO
[2024-06-07 10:06] LABS: Basophils Absolute Auto 0.1 X10*3/uL (0.0-0.2); Basophils Percent Auto 1.2 % (0-2); Eosinophils Absolute Auto 0.1 X10*3/uL (0.0-0.4); Eosinophils Percent Auto 3.4 % (0-4); Hematocrit 40.8 % (37.0-47.0); Hemoglobin 13.4 g/dl (12.0-16.0); Imm Gran Abs Auto 0.01 X10*3/uL (0.00-0.03); Imm Gran Pct Auto 0.2 % (0.0-0.4); Lymphocytes Absolute Auto 1.6 X10*3/uL (1.2-4.9); Lymphocytes Percent Auto 38.2 % (20-40); Mean Corpuscular HGB Conc 32.8 g/dl (31.0-35.0); Mean Corpuscular Hemoglobin 30.5 pg (27.0-33.0); Mean Corpuscular Volume 92.7 fL (80.0-98.0); Mean Platelet Volume 10.3 fL (9.4-12.3); Monocytes Absolute Auto 0.4 X10*3/uL (0.1-1.2); Monocytes Percent Auto 9.2 % (2-11); Neutrophils Percent Auto 47.8 % (45-73); Platelet Count 243 X10*3/uL (160-400); White Blood Count 4.1 X10*3/uL (4.8-10.8)
[2024-06-07 10:31] LABS: Alanine Aminotransferase 44 U/L (0-31); Albumin Level 4.2 g/dL (3.5-5.0); Alkaline Phosphatase 53 U/L (39-117); Anion Gap 10 (12-20); Aspartate Amino Transferase 34 U/L (5-31); Bilirubin Total 0.4 mg/dL (0.0-1.0); Blood Urea Nitrogen 11 mg/dL (9-16); Calcium 9.1 mg/dL (8.4-10.2); Carbon Dioxide 30 mmol/L (22-29); Chloride 106 mmol/L (96-108); Cholesterol 175 mg/dL (<200); Estimated Glomerular Filt Rate > 60; Glucose Random 92 mg/dL (60-115); HDL Cholesterol 72 mg/dL (>40); LDL Cholesterol Calculated 92 mg/dL (<100); Potassium 4.5 mmol/L (3.3-5.1); Sodium 141 mmol/L (135-145); Total Protein 6.7 g/dL (6.5-8.0); Triglycerides 55 mg/dL (<150)
[2024-06-11 08:54] LABS: Lipoprotein A 357 nmol/L (<75)
== END 2024-06-07 08:14 | disposition home or self-care (01) ==
LOC: HO.HMGCLDS 08:13
PROVIDERS: PCP Physician Assistant; Visit Provider Physician Assistant
DX: Z00.00 Encounter for general adult medical examination without abnormal findings (principal)
CPT/HCPCS: 36415; 80053; 80061; 83695; 85025

== ENCOUNTER 2024-06-18 08:29 | Outpatient (REF) | payer OTHER, SELFPAY ==
--- NOTE | ~2024-06-18 | US_ITS ---
EXAMINATION: US SCREENING ULTRASOUND BREAST, BILATERAL CLINICAL INFORMATION: Dense breasts on mammography. Screening ultrasound. Lung family history of breast cancer including daughter at age 42. Patient is BRCA positive. COMPARISON: Screening mammography March 2024. TECHNIQUE: Ultrasound is performed using grayscale imaging and color Doppler. Imaging is performed to include the four quadrants and retroareolar region. Both breasts are imaged. FINDINGS: Right breast: There is no suspicious finding by ultrasound. There is no solid mass or focal architectural abnormality. Only normal fibroglandular breast tissue is seen. Left breast: There is no suspicious finding by ultrasound. There is no solid mass or focal architectural abnormality. Only normal fibroglandular breast tissue is seen. US/US breast BI complete IMPRESSION: No suspicious findings on screening breast ultrasound. ASSESSMENT: BI-RADS 1 - Negative RECOMMENDATION: 1 year F/U This patient's information was entered into a reminder system with a target due date for their next mammogram. Electronically signed by: Lilia Jiames DO 06/18/2024 09:26 AM JIMI
--- OUTSIDE RECORDS SUMMARY | 2024-06-18 08:41 | XMS_ITS | Continuity of Care Document ---
Author Organization [facility], [facility] Address [address] [place] [address] Assessment No assessment recorded. Plan of Treatment Reminders Order Date Submit Date Provider Last Modified By Organization Details Last Modified Time Details Appointments ANNUAL EXAM 2025 03:45P DANTE BONILLA Not available Not available Not available Lab lipoprote in-associ ated phospholi pase A2 (pla2), serum 2024 025 [facility], [address] [place] [address], [address], 05/19/2024 16:44:01 lipid panel, serum 2024 025 [facility], [address] [place] [address], [address], 05/19/2024 16:44:01 CMP, serum or plasma 2024 025 [facility], [address] [place] [address], [address], 06/08/2024 13:09:10 CBC w/ auto diff 2024 025 [facility], [address] [place] [address], [address], 05/19/2024 16:44:01 Referral None recorded. Procedures None recorded. Surgeries None recorded. Imaging bone density 2024 025 [facility], [address] [place] [address], [address], 05/25/2024 08:22:02 MRI, breast, bilateral , w/wo contrast - dense breast tissue, sig family hx of breast cancer, MM cannot fully access for malignanc y MM cannot fully access for malignanc y 2024 025 [facility], [address] [place] [address] [place], [address], 05/28/2024 10:28:27 Medication Orders None recorded. Patient TargetsNo targets recorded. Patient InstructionsNo instructions recorded. Reason for Referral None Reported. Results Created Date Observation Date Name Description Value Unit Range Abnormal Flag Note LastModifiedBy Organization Detail LastModifiedTime 04/28/1904/16/2024 MAMMO , braedene toro, digit al, bilat eral No observ ation record ed. [email or web address] [address] [place], [address], 04/28/2024 19:00:16 Result Notes None recorded. Problems Name Problem SNOMED Code Status Onset Date Resolution Date Notes Provider Name and Address Organization Details Recorded Time Hypermet ropia 50982224 Active 2018 Not Available [facility] 2 10:18:57 Myopia 97043382 Active 2018 Not Available [facility] 2 10:18:57 Central cord syndrome of cervical spinal cord 475564136 Active 2019 Not Available [facility] 2 10:18:57 Tetraple tali 09564339 Active 2019 incomplet e C5-C7 Not Available [facility] 2 10:18:57 Osteopor osis 32143511 Active 2020 Not Available [facility] 2 10:18:57 Dysuria 91235646 Active 2021 Not Available [facility] 2 10:18:57 Aneurysm of splenic artery 20217837 Active 2021 DANTE JEAN BAPTISTE [address] [place] [address], [address], [facility] 2 09:13:53 Injectio n site inflamma tion 10411648 Active 2021 DANTE JEAN BAPTISTE [address] [place], [address], [facility] 2 11:47:32 Kidney stone 32474282 Active 2022 DANTE JEAN BAPTISTE [address] [place], [address], [facility] 3 14:21:48 Vitamin D deficien cy 60605865 Active 2022 DANTE JEAN BAPTISTE [address] [place], [address], [facility] 3 14:24:02 Osteopen ia 507791240 Active 2022 DANTE JEAN BAPTISTE [address] [place], [address], [facility] 3 14:11:03 Hyperlip idemia 70732719 Active 2022 DANTE JEAN BAPTISTE [address] [place], [address], [facility] 3 15:42:47 Constipa tion 35122591 Active 2023 DANTE JEAN BAPTISTE [address] [place], [address], [facility] 4 13:52:05 Aneurysm of spinal artery 6182682 Active 2023 DANTE JEAN BAPTISTE [address] [place], [address], [facility] 4 14:09:15 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 241044385 Active 2023 DANTE JEAN BAPTISTE [address] [place], [address], [facility] 4 14:09:16 Vesicula r hand eczema 873924057 Active 2023 DANTE JEAN BAPTISTE [address] [place], [address], [facility] 4 14:14:11 Chronic constipa tion 292640477 Active 2023 DANET JEAN BAPTISTE [address] [place], [address], [facility] 4 14:49:18 Allergic rhinitis 36066211 Active 2023 DANTE JEAN BAPTISTE [address] [place], [address], [facility] 4 16:20:03 Impacted cerumen in right ear 05662993752 618[address] Active 2023 DANTE JEAN BAPTISTE [address] [place], [address], [facility] 4 16:25:00 Tinnitus 05495766 Active 2023 DANTE JEAN BAPTISTE [address] [place], [address], [facility] 4 08:55:40 Pelvic floor dysfunct ion 193056955 Active 2023 DANTE JEAN BAPTISTE [address] [place], [address], [facility] 4 12:08:29 Hypercho lesterol emia 62103026 Active 2017 Good RR Not Available [facility] 2 10:18:57 Heteroge neously dense breast composit ion 092900504 Active 2024 DANTE JEAN BAPTISTE [address] [place], [address], [facility] 5 16:22:45 Dupuytre amy's contract ure of finger 560636590 Active 2024 DANTE JEAN BAPTISTE [address] [place], [address], [facility] 5 16:33:31 Liver function tests outside referenc e range 504416028 Active 2024 DANTE JEAN BAPTISTE [address] [place], [address], [facility] 5 09:34:38 Notes:only has the left kidn ey Problem Notes None recorded. Medical Equipment None Reported. Allergies Allergen ID Allergen Name Allergen Category Reaction Reaction Severity Criticality Documentation Date Start Date Code Code System Note Provider Name and Address Organization Details Recorded Time 3152 Product containin g penicilli n (product) medicatio n rash Not available Not available 10/27/2018 94495 8001 SNOMED Bernadette walker [facility] 9 10:18:39 5324 Macrobid medicatio n nausea moderate Not available 05/11/2021 31825 1 RxNorm DANTE JEAN BAPTISTE [address] [place], [address], [facility] 2 11:13:41 984 amoxicill in medicatio n rash Not available Not available 08/15/2017 723 RxNorm Bebe walker [facility] 8 08:29:49 985 Substance with sulfonami de structure and antibacte rial mechanism of action (substanc e) medicatio n rash Not available Not available 08/15/2017 02912 8003 SNOMED Bebe walker [facility] 8 08:29:59 Medications Name Sig Start [...] day by oral route for 14 days. 01/14 /2022 completed Not Available Not Available Not Available [...] t Available misoprost ol 100 mcg tablet TAKE 1 TABLET BY MOUTH THREE TIMES A DAY NEEDED FOR 30 DAYS active Not Available Not Available No t Available Erythroci n (as stearate) 250 mg tablet [...] Updated DateTime 5 160.02 cm 20.4 kg/m2 00489.1 2 g 84 /min 93 % 93 % 120 mm[Hg] 78 mm[Hg] DANTE JEAN BAPTISTE [address] [place], [address] [place] [address] [facility] 5 16:08:35 Social History Question Answer Notes LastModified by Organizat ion Details LastModified Time Tobacco Smoking Status Never Smoker Not Available [facility] 02/29/2020 03:36:24 What Was The Date Of [...] virus, quadrivalent, preservative 1 completed Not Available [facility] 12/11/2022 09:42:48 COVID-19, mRNA, LNP-S, PF, 30 mcg/0.3 mL dose 1 completed Theresa walker [place] [facility] 03/05/2021 08:34:14 COVID-19, mRNA, LNP-S, PF, 30 mcg/0.3 mL dose 2 completed Not Available [facility] 12/11/2022 09:42:48 COVID-19, mRNA, LNP-S, PF, 50 mcg/0.5 mL dose 2 completed [facility] Available [facility] 12/11/2022 09:42:48 zoster recombinant 2 completed Not Available [facility] 12/11/2022 09:42:48 zoster recombinant 2 completed Not [facility] 12/11/2022 09:42:48 influenza, unspecified formulation 2 completed [facility] 12/11/2022 09:42:48 Influenza, split virus, quadrivalent, preservative 9 completed [facility] 11/08/2020 09:44:49 zoster recombinant 9 completed [facility] 11/08/2020 09:44:49 Influenza, split virus, quadrivalent, preservative 0 completed [facility] 11/08/2020 09:44:49 COVID-19, mRNA, LNP-S, PF, 100 mcg/0.5mL dose or 50 mcg/0.25mL dose 1 completed Not Available [facility] 11/08/2020 09:44:49 COVID-19, mRNA, LNP-S, PF, 100 mcg/0.5mL dose or 50 mcg/0.25mL dose 1 completed Not Available [facility] 11/08/2020 09:44:49 Past Encounters Encounter ID Performer Location Encounter Start Date Encounter Closed Date Diagnosis/Indication Diagnosis SNOMED-CT Code Diagnosis ICD10 Code Diagnosis Note [id number] DANTE JEAN BAPTISTE [facility] [address],[place] [address] 05/19/2024 15:52:54 05/21/2024 08:08:28 Active or passive immunization 327542348 Z23 advised Adult heal th examination 413485802 Z00.00 BP is excellent Heterogene ously dense breast composition 221538654 R92.2 suggested MRI Dupuytren' s contracture of finger 438030472 M72.0 bilaterall y, seeing hand specialist , does not need surgery at this time Osteoporosis 42133772 M8 1.0 will set up bone density, due for two year checkhas only been doing the calcium and vit d due to intoleranc e of the alendronat e Hyperlipidemia 86461724 E78.01 will recheck lipid levels Health Concerns Section Related Observation LastModified by Organization Detai ls LastModified Time None Recorded Concern Status LastModified by Organization Details LastModified Time None Recorded Payers Encounter Date Sequence Insurance Name Policy Number Policy Dennis Covered Member ID Dennis Member ID Guarantor Name 05/19/2024 1 [facility] [id number] 1 Vincent Cuevas [id number] Vincent Faith Notes Date Note Type Note Provider Name [...] take away night-time dose DANTE JEAN BAPTISTE [address] [place] [address], [address], [facility] 05/19/2024 16:59:49 OBGyn Episode No OBEpisode recorded.
--- OUTSIDE RECORDS SUMMARY | 2024-06-18 08:42 | XMS_ITS | Clinical Summary ---
Author Organization [facility] Address [address] [place] [address] Care Team Providers Care Security Incident Response Specialist Name Role Phone Berry Robles DO Primary Care Provider [phone] Social History Tobacco Use Types Packs/Day Years [...] AM EDT Office Visit Orthopedic Surgery [place] [address] [place] [address] Karen Cruz PA [address] [place] [address] Health Maintenance Due Date Last Done Comments Breast Cancer Screening 1960 DTaP,Tdap,and Td Vaccines (1 - Tdap) 1978 Cervical Cancer Screening: P ap Smear 01/19/1980 [...] Documents on File Type Date Recorded Patient Carpet Layer Expl anation Health Care Decision (hx) 02/12/2020 YOVANI GARCIA DIRECTIVE Care Teams Security Incident Response Specialist Relationship Specialty Start Date End Date Berry Robles DO [address] [facility] [address] [place], [place] PCP - General 01/29/24
--- OUTSIDE RECORDS SUMMARY | 2024-06-18 08:42 | XMS_ITS | Data Portability ---
Author Organization [facility] Home Service Address [address] [place] [address] Assessment Encounter Date Assessment Date Assessment LastModified [...] phospholi pase A2 (pla2), serum 2024 025 [facility], [address] [place] [address], [address], 05/19/2024 16:44:01 lipid panel, serum 2024 025 [facility], [address] [place] [address], [address], 05/19/2024 16:44:01 CMP, serum or plasma 2024 025 [facility], [address] [place] [address], [address], 06/08/2024 13:09:10 CBC w/ auto diff 2024 025 [facility], [address] [place] [address], [address], 05/19/2024 16:44:01 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, blood or tissue - blood test 2023 024 [facility], [address] [place] [address] [place], [address], 05/16/2023 14:07:50 apolipopr otein A-I + A-II + B + C panel, QN, serum or plasma 2023 024 [facility], [address] [place] [address], [address], 05/16/2023 14:08:54 lipid panel, serum 2023 024 [facility], [address] [place] [address], [address], 06/02/2023 17:22:17 CMP, serum or plasma 2023 024 [facility], [address] [place] [address], [address], 06/02/2023 17:22:17 CBC w/ auto diff 2023 024 [facility], [address] [place] [address], [address], 06/02/2023 17:22:17 vitamin D, 25-hydrox y, total, serum 2022 023 [facility], [address] [place] [address] [place], [address], 05/10/2022 15:11:53 hepatic function panel, serum 2022 023 [facility], [facility] [place], [address], 05/10/2022 15:11:53 CMP, serum or plasma 2022 023 [facility], [facility] [place], [address], 05/10/2022 15:11:53 CBC w/ auto diff 2022 023 [facility], [address] [place] [address] [place], [address], 05/10/2022 15:11:53 lipid panel, blood 2022 023 [facility], [address] [place] [address] [place], [address], 05/10/2022 15:11:53 Referral None recorded. Procedures None recorded. Surgeries None recorded. Imaging bone density 2024 025 [facility] Central Scheduling, [address] [place], [address], 05/25/2024 08:22:02 MRI, breast, bilateral , w/wo contrast - dense breast tissue, sig family hx of breast cancer, MM cannot fully access for malignanc y MM cannot fully access for malignanc y 2024 025 [facility], [address] [place] [address] [place], [address], 05/28/2024 10:28:27 bone density - due for repeat bone scan 2022 023 [facility] Central Scheduling, [address] [facility] [place], [address], 05/24/2022 10:39:28 Medication Orders fluticaso ne propionat e 50 mcg/actua tion nasal spray,barbara pension 2023 024 [id number] [address] [facility] [place], [address], 08/19/2023 16:21:31 Linzess 72 mcg capsule 2023 024 [email or web address] [facility] #[id number], [address] [facility] [place], [address], 06/09/2023 10:51:01 clobetaso l 0.05 % topical cream 2023 024 V[facility]CTOR [id number], [address], [place], [address], 05/16/2023 14:14:28 prednison e 10 mg tablet 2022 023 [email or web address] [facility] #[id number], [address] [place], [address], 05/16/2023 13:33:57 Patient TargetsNo targets recorded. Patient InstructionsNo instructions recorded. Reason for Referral None Reported. Results Created Date Observation Date Name Description Value Unit Range Abnormal Flag Note LastModifiedBy Organization Detail LastModifiedTime 05/02/19 22 05/01/2021 MRI, cervi danny spine , w/wo contr ast No observ ation record ed. [facility] [address], [place], [address], 05/02/2021 13:55:24 10/23/19 22 10/17/2021 US, ramona méndez s, lower extre mity No observ ation record ed. [facility] [address], [place], [address], 10/22/2021 13:38:10 11/16/19 22 01/07/2020 bone densi ty No observ ation record ed. [facility] [address], [place], [address], 11/16/2021 08:49:59 02/28/20 22 02/22/2022 US, clark aparicio, abdom inal aorta No observ ation record ed. VÍCTOR Not Available 2021 08:09:48 05/30/19 23 05/30/2022 bone densi ty No observ ation record ed. [facility] Central Scheduling [address] [facility], [place], [address], 05/31/2022 09:41:01 07/30/19 23 07/26/2022 CT, coron pal calci um score No observ ation record ed. [email or web address] [facility] [address] [place], [address], 07/30/2022 09:12:07 09/25/19 23 09/18/2022 imagi ng/di agnos tic resul t No observ ation record ed. [facility] [address] [place] [address] , [place], [address], 09/24/2022 12:10:16 03/23/20 23 03/03/2023 MAMMO , anita engel, digit al, bilat eral No observ ation record ed. [address] [place], [address], 03/24/2023 08:36:35 01/20/20 24 01/16/2024 US, duple x, renal arter y No observ ation record ed. [facility] [address] [place] [address] [facility], [place], [address], 01/20/2024 08:48:28 04/01/20 24 03/31/2024 CT, abdom en + pelvi s, w/o contr ast No observ ation record ed. [facility] [place] [address] [address], [place], [address], 04/02/2024 12:09:00 04/28/19 25 04/16/2024 MAMMO , scree toro, digit al, bilat eral No observ ation record ed. [email or web address] [address] [place], [address], 04/28/2024 19:00:16 Result Notes None recorded. Problems Name Problem SNOMED Code Status Onset Date Resolution Date Notes Provider Name and Address Organization Details Recorded Time Michelle ocampo 37496050 Active 2018 Not Available [facility] 2 10:18:57 Myopia 04326532 Active 2018 Not Available [facility] 2 10:18:57 Central cord syndrome of cervical spinal cord 732614584 Active 2019 Not Available [facility] 2 10:18:57 Tetraple tali 68133961 Active 2019 incomplet e C5-C7 Not Available [facility] 2 10:18:57 Osteopor osis 20217015 Active 2020 Not Available [facility] 2 10:18:57 Dysuria 48698649 Active 2021 Not Available [facility] 2 10:18:57 Aneurysm of splenic artery 40539563 Active 2021 DANTE JEAN BAPTISTE [address] [place], [address], [facility] 2 09:13:53 Injectio n site inflamma tion 59689615 Active 2021 DANTE JEAN BAPTISTE [address] [place], [address], [facility] 2 11:47:32 Kidney stone 73502723 Active 2022 DANTE JEAN BAPTISTE [address] [place], [address], [facility] 3 14:21:48 Vitamin D deficien cy 89249259 Active 2022 DANTE JEAN BAPTISTE [address] [place], [address], [facility] 3 14:24:02 Osteopen ia 101968423 Active 2022 DANTE JEAN BAPTISTE [address] [place], [address], [facility] 3 14:11:03 Hyperlip idemia 04586342 Active 2022 DANTE JEAN BAPTISTE [address] [place], [address], [facility] 3 15:42:47 Constipa tion 02798076 Active 2023 DANTE JEAN BAPTISTE [address] [place], [address], [facility] 4 13:52:05 Aneurysm of spinal artery 2587001 Active 2023 DANTE JEAN BAPTISTE [address] [place], [address], 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 4 14:09:16 Vesicula r hand eczema 848531153 Active 2023 DANTE JEAN BAPTISTE [address] [place] [address], [address], [facility] 4 14:14:11 Chronic constipa tion 566817247 Active 2023 DANTE JEAN BAPTISTE [address] [place] [address], [address], [facility] 4 14:49:18 Allergic rhinitis 61252294 Active 2023 DANTE JEAN BAPTISTE [address] [place] [address], [address], [facility] 4 16:20:03 Impacted cerumen in right ear 10882962921 00571 Active 2023 DANTE JEAN BAPTISTE [address] [place] [address], [address], [facility] 4 16:25:00 Tinnitus 91093613 Active 2023 DANTE JEAN BAPTISTE [address] [place] [address], [address], [facility] 4 08:55:40 Pelvic floor dysfunct ion 576289101 Active 2023 DANTE JEAN BAPTISTE [address] [place], [address], [facility] 4 12:08:29 Hypercho lesterol emia 75621568 Active 2017 Good RR Not Available [facility] 2 10:18:57 Heteroge neously dense breast composit ion 211913569 Active 2024 DANTE JEAN BAPTISTE [address] [place], [address], [facility] 5 16:22:45 Dupuysae n's contract ure of finger 475111754 Active 2024 DANTE JEAN BAPTISTE [address] [place], [address], [facility] 5 16:33:31 Liver function tests outside referenc e range 153280268 Active 2024 DANTE JEAN BAPTISTE [address] [place], [address], [facility] 5 09:34:38 Notes:only has the left kidn ey Problem Notes None recorded. Procedures Surgical History None recorded. Imaging Results Imaging Date Name Status LastModified by Organiz ation Details LastModified Time 05/01/2021 MRI, cervical spine, w/wo contrast completed [facility] [address], [place], [address], 05/02/2021 13:55:24 10/17/2021 US, duplex, venous, lower extremity completed [facility] [address], [place], [address], 10/22/2021 13:38:10 01/07/2020 bone density completed [facility] [address], [place], [address], 11/16/2021 08:49:59 02/22/2022 US, duplex, abdominal aorta completed VÍCTOR Information not available 02/28/2022 08:09:48 05/30/2022 bone density completed [facility] Central Scheduling [address] [place], [address], 05/31/2022 09:41:01 07/26/2022 CT, coronary calcium score completed [email or web address] [facility] [address] [place], [address], 07/30/2022 09:12:07 09/18/2022 imaging/diagn ostic result completed [facility] [address], [place], [address], 09/24/2022 12:10:16 03/03/2023 MAMMO, screening, digital, bilateral completed [address] [place], [address], 03/24/2023 08:36:35 01/16/2024 US, duplex, renal artery completed [facility] [address] [address] [place] [facility], [place], [address], 01/20/2024 08:48:28 03/31/2024 CT, abdomen + pelvis, w/o contrast completed [facility] [place] [address] [place] [address], [address], 04/02/2024 12:09:00 04/16/2024 MAMMO, screening, digital, bilateral completed [address] [place], [address], 04/28/2024 19:00:16 Procedure Notes None recorded. Medical Equipment None Reported. Allergies Allergen ID Allergen Name Allergen Category Reaction Reaction Severity Criticality Documentation Date Start Date Code Code System Note Provider Name and Address Organization Details Recorded Time 3152 Product containin g penicilli n (product) medicatio n rash Not available Not available 10/27/2018 47927 8001 SNOMED [facility] 10:18:39 5324 Macrobid medicatio n nausea moderate Not available 05/11/2021 03419 1 RxNorm DANTE JEAN BAPTISTE [address] [place], [address], [facility] 2 11:13:41 984 amoxicill in medicatio n rash Not available Not available 08/15/2017 723 RxNorm Bebe walker [facility] 8 08:29:49 985 Substance with sulfonami de structure and antibacte rial mechanism of action (substanc e) medicatio n rash Not available Not available 08/15/2017 93109 8003 SNOMED Bebe walker [facility] 8 08:29:59 Medications Name Sig [...] Updated DateTime 3 160.66 cm 19 kg/m2 97854.9 8 g 98 % 98 % 62 /min 100 mm[Hg] 60 mm[Hg] Theresa Chicas [facility] 3 13:38:33 Date Recorded Body weight Heart rate Oxygen saturation Oxygen saturation in Arterial blood by Pulse oximetry Systolic blood pressure Diastolic blood pressure Provider Name and Address Organization Details Last Updated DateTime 4 40589.1 8 g 80 /min 98 % 98 % 120 mm[Hg] 70 mm[Hg] Rosa Dillon [facility] 4 13:37:17 Date Recorded Body height Body mass index (BMI) Body weight Heart rate Oxygen saturation Oxygen saturation in Arterial blood by Pulse oximetry Systolic blood pressure Diastolic blood pressure Provider Name and Address Organization Details Last Updated DateTime 4 160.66 cm 20.6 kg/m2 57015.3 1 g 83 /min 96 % 96 % 116 mm[Hg] 62 mm[Hg] Hill Jiménez [facility] 4 16:07:16 Date Recorded Body height Body mass index (BMI) Body weight Heart rate Oxygen saturation Oxygen saturation in Arterial blood by Pulse oximetry Systolic blood pressure Diastolic blood pressure Provider Name and Address Organization Details Last Updated DateTime 5 160.02 cm 20.4 kg/m2 89584.1 2 g 84 /min 93 % 93 % 120 mm[Hg] 78 mm[Hg] DANTE JEAN BAPTISTE [address] [place], [address], [facility] 5 16:08:35 Social History Question Answer Notes LastModified by Organizat ion Details LastModified Time Tobacco Smoking Status Never Smoker Not Available [facility] 02/29/2020 03:36:24 What Was The Date [...] quadrivalent, preservative 1 completed Not Available [facility] 12/11/2022 09:42:48 COVID-19, mRNA, LNP-S, PF, 30 mcg/0.3 mL dose 1 completed Theresa walker [facility] 03/05/2021 08:34:14 COVID-19, mRNA, LNP-S, PF, 30 mcg/0.3 mL dose 2 completed Not Available [facility] 12/11/2022 09:42:48 COVID-19, mRNA, LNP-S, PF, 50 mcg/0.5 mL dose 2 completed Not Available [facility] 12/11/2022 09:42:48 zoster recombinant 2 completed Not Available [facility] 12/11/2022 09:42:48 zoster recombinant 2 completed Not Available [facility] 12/11/2022 09:42:48 influenza, unspecified formulation 2 completed Not Available [facility] 12/11/2022 09:42:48 Influenza, split virus, quadrivalent, preservative 9 completed Not Available [facility] 11/08/2020 09:44:49 zoster recombinant 9 completed Not Available [facility] 11/08/2020 09:44:49 Influenza, split virus, quadrivalent, preservative 0 completed Not Available [facility] 11/08/2020 09:44:49 COVID-19, mRNA, LNP-S, PF, 100 mcg/0.5mL dose or 50 mcg/0.25mL dose 1 completed Not Available [facility] 11/08/2020 09:44:49 COVID-19, mRNA, LNP-S, PF, 100 mcg/0.5mL dose or 50 mcg/0.25mL dose 1 completed Not Available [facility] 11/08/2020 09:44:49 Past Encounters Encounter ID Performer Location Encounter Start Date Encounter Closed Date Diagnosis/Indication Diagnosis SNOMED-CT Code Diagnosis ICD10 Code Diagnosis Note [id number] Shirlene Escobar NP, [facility] [address] [place] [address], [employer] [place] [address] 08/15/2017 14:21:53 08/15/2017 15:25:04 Bursitis of left shoulder 3386587409 73923 M75.52 [id number] Shirlene Escobar NP, [facility] [address] [place] [address], [employer] [place] [address] 09/29/2017 10:05:46 09/29/2017 17:11:03 Streptococcal infectious disease 58220161 A49.1 Cervical lymphadenopathy 856481134 R59.0 Malaise and fatigue 2717 82053 R53.81 f/u in office in 2 days [id number] Shirlene Escobar NP, [facility] [address] [address] 10/01/2017 09:05:44 10/01/2017 10:28:19 Heart murmur 00063272 R01.1 f/u in office 1 week after exam Viral syndrome 395711841 B34.9 symptoms improved work note provided for this week [id number] Shirlene Escobar NP, [facility] [address],[place] [address] 10/27/2017 15:45:49 10/27/2017 16:37:31 Intermittent palpitations 339055582 R00.2 Hypercholesterolemia 136 14076 E78.00 Good RR, continue healthy lifestyle [id number] Shirlene Escobar NP, [facility] Internal [address], [place] [address] 03/31/2018 09:27:19 03/31/2018 10:08:36 Diarrhea 09968459 R19.7 Family problems 44741298 4 Z63.79 discussed [id number] [facility] [address] [place] [address],[place] [address] 10/27/2018 10:13:36 10/27/2018 11:48:51 Adult health examination 785970240 Z00.00 Active or passive immunization 795424102 Z23 Hypercholesterolemia 136 28860 E78.00 Microscopic hematuria 19 8301064 R31.21 s/p menopause no uti sx Vitamin D deficiency 347 81918 E55.9 Cellulitis 454655930 L03 .90 2/2 wasp or yellow jacket sting [id number] DANTE JEAN BAPTISTE [facility] [address], [place] [address] 03/07/2020 08:25:47 03/07/2020 15:47:24 Central cord syndrome of cervical spinal cord 720211115 S14.129A doing much better fu as needed Tetraplegia 75491695 G82 .53 doing well able to walk and move with limited assistance of walker [id number] [facility] [address] [employer], [place] [address] 03/21/2020 11:47:00 03/21/2020 16:06:01 Osteopenia 433759692 M85.80 will start on alendronat e qdwk Spasm 55391335 R25.2 will check mag level Tetraplegia 85833670 G82 .54 doing well able to walk and move with limited assistance of walker improving Central co rd syndrome of cervical spinal cord 312817018 S14.129A doing better, still working on improving striper spray gun strength and sensation [id number] [facility] [address] [facility] [place], ite [facility] [place] [address] 04/10/2020 11:43:36 04/10/2020 16:18:23 Herpes zoster 3490325 B02.9 looks like shingles rash following trigeminal pathway will see if improvemen t on valtrex and pred taper, concern is that is on her rigth eyelid, it being so close to her eye Central co rd syndrome of cervical spinal cord 652127668 S14.129A doing better, still working on improving striper spray gun strength and sensation Tetraplegia 82828041 G82 .54 doing well able to walk and move with limited assistance of walker improving [id number] [facility] [address],[place] [address] 05/31/2020 14:54:50 05/31/2020 16:09:05 Central cord syndrome of cervical spinal cord 728279014 S14.129D long detailed discussion we will havce her see specialist tomorrow a dr zapata plan to increase her baclofen to 10 tid relates having issues with burning sensation and has had issues with this in the leg as well also she wishes to come off the oxycodone only taking this for the burning sensation in her hands and leg Hypercholesterolemia 136 49046 E78.00 will cont to follow and we will repeat lab shortly Lower limb spasticity 39 3356748 M62.838 she is only taking 5 mg tid we will increase to 10mg [id number] [facility] [address] [facility] [place] [address] 09/27/2020 10:47:56 09/27/2020 11:12:04 Tetraplegia 07277153 G82.54 doing well able to walk and move with limited assistance of walker and even now without one improving and follows with her neuro and PT Peripheral venous insufficiency 38678215 I87.2 will address this at next visit so I can do a proper exam Bite of no nvenomous spider 015743482 W57.XXXS possibly a spider bite will start on short course of doxy [id number] DANTE JEAN BAPTISTE [facility] [address] [employer], [place] [address] 10/04/2020 16:20:05 10/04/2020 16:53:29 Central cord syndrome of cervical spinal cord 692725413 S14.129A doing better, still working on improving striper spray gun strength and sensation Tetraplegia 79919445 G82 .54 doing well able to walk and move with limited assistance of walker and even now without one improving at home and follows with her neuro and PT Peripheral venous insufficiency 19494493 I87.2 mild varicose veins of the lower extremitie s, discussed with patient this is due to SCI [id number] DANTE JEAN BAPTISTE [facility] [address] [employer], [place] [address] 12/11/2020 15:45:26 12/11/2020 16:41:59 Active or passive immunization 407293268 Z23 advised Adult heal th examination 796650741 Z00.00 needs lab work Hypomagnesemia 012962859 E83.42 will recheck Anemia 190170319 D50.0 will fu with lab work [id number] DANTE JEAN BAPTISTE [facility] [address] [place] [address], [place] [address] 12/29/2020 09:39:24 01/02/2021 11:49:00 Central cord syndrome of cervical spinal cord 522420617 S14.129A doing better, still working on improving striper spray gun strength and sensation Hypercholesterolemia 136 74602 E78.00 start red yeast rice and fish oil [id number] DANTE JEAN BAPTISTE [facility] [address] [place] [address], [facility] [facility] [place] [address] 05/07/2021 09:53:25 05/07/2021 16:29:31 Dysuria 82608001 R30.0 will fu with treatment plan [id number] DANTE JEAN BAPTISTE [facility] [address],[place] [address] 05/11/2021 09:17:34 05/18/2021 10:22:27 Tetraplegia 76892675 G82.54 recent fu, having an MRI with neurosurge ry Dysuria 82004341 R30.0 stop medication except anti-emeti c Nausea 653075676 R11.0 continue as needed if she is nauseous [id number] DANTE JEAN BAPTISTE [facility] [address], [place] [address] 05/10/2022 13:24:42 05/14/2022 08:36:53 Active or passive immunization 918710538 Z23 advised Adult heal th examination 818352160 Z00.00 needs lab work [address] co rd syndrome of cervical spinal cord 148359285 S14.129A will adjust to the 10 mg prednisone as needed on top of the 5 mg Screening for osteoporosis 128348174 Z13.820 will set up with bone density screeningn eeds recheck Kidney stone 68209546 N2 0.0 left kidneyonly has on kidney Aneurysm o f splenic artery 32404248 I72.8 seeing cardio for eval since her insurance denied the CTA for it Vitamin D deficiency 347 46409 E55.9 will recheck [id number] DANTE JEAN BAPTISTE [facility] [address], [place] [address] 05/16/2023 13:27:15 05/16/2023 15:25:23 Constipation 60181841 K59.01 will try first with linzess, would like to try motegrity at the end Aneurysm o f spinal artery 5703688 I72.8 stable 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 116372637 G82.54 improving Adult heal th examination 118726783 Z00.00 needs lab workfor routine stuff Hyperlipidemia 04904452 E78.01 will recheck lipid levels Family his tory of breast cancer 150713745 Z80.3 found mutation her daughter haswill check for this Vesicular hand eczema 40 3122988 L30.8 will start on clobetasol to see if alleviates her symptoms [id number] DANTE JEAN [facility] [address] [address] 08/19/2023 15:57:08 08/20/2023 08:22:19 Allergic rhinitis [id number] J30.1 agreed to trying flonase and will use debrox on the Impacted c erumen in right ear [id number] H61.21 will use debrox [id number] DANTE JEAN BAPTISTE [facility] [address],[place] [address] 05/19/2024 15:52:54 05/21/2024 08:08:28 Active or passive immunization [id number] Z23 advised Adult heal th examination 303495603 Z00.00 BP is excellent Heterogene ously dense breast composition 114301432 R92.2 suggested MRI Dupuytren' s contracture of finger 085701596 M72.0 bilaterall y, seeing hand specialist , does not need surgery at this time Osteoporosis 43373272 M8 1.0 will set up bone density, due for two year checkhas only been doing the calcium and vit d due to intoleranc e of the alendronat e Hyperlipidemia 88969496 E78.01 will recheck lipid levels Health Concerns Section Related Observation LastModified by Organization Detai ls LastModified Time None Recorded Concern Status LastModified by Organization Details LastModified Time None Recorded Advance Directives Directive None Recorded Payers Encounter Date Sequence Insurance Name Policy Number Policy Dennis Covered Member ID Dennis Member ID Guarantor Name 05/11/2021 1 [facility] [id number] 1 Vincent Cuevas [id number] Vincent Cuevas 05/10/2022 1 [facility] [id number] 1 Vincent Cuevas [id number] Vincent Cuevas 05/16/2023 1 [facility] [id number] 1 Vincent Cuevas [id number] Vincent Cuevas 08/19/2023 1 [facility] [id number] 1 Vincent Cuevas [id number] Vincent Cuevas 05/19/2024 1 [facility] [id number] 1 Vincent Cuevas [id number] Vincent Cuevas Notes Date Note Type Note Provider Name a nd Address Organization Details Recorded Time 2 text/html c/o fever, UTI symptoms telemed phone callpatient consents to phone call the patient reports that she couldn't get the orginal script until up on Friday having severe nausea, lack of appetitethe patient reports that she slept most of the day Friday, reports weakness on , she reports a Tmax of 100.6 Fthe patient reports that she immediately started taking ibuprofen for the fever still lack of appetite today but improvingreports pounding headache today and yesterday macrobid does cause these side effectssharyn torres continue anti-emetic DANTE JEAN BAPTISTE [address] [place], [address], [facility] 05/11/2021 11:35:03 3 text/html Annual WellnessReported bypatient.Diet and Nutrition:healthy diet; discussed vitamin and supplement use; discussed portion control; discussed maintaining calcium balance; discussed diet improvement Physical Activity:exercises on a regular basis; recent increase in physical activity; good physical condition; discussed weightbearing activities; discussed exercise habits; does yoga walks does chair yoga at [facility] in [place] Additional Lifestyle Factors:no tobacco use; no alcohol [...] every other day as needed saw Dr. Monterio yesterday as well (her physiotherapist)discu ssed how to take the pred, when to dose adjust and how to properly taper the dosage down using a transport service DATNE JEAN BAPTISTE [address] [place], [address], [facility] 05/10/2022 14:28:42 4 text/html Annual [...] the severe constipation DANTE JEAN BAPTISTE [address] [place], [address], [facility] 05/16/2023 14:20:27 4 text/html c/o tinnitus in the bilateral ears the patient is still having the ringing in the earsR side, more so than left sidehearing is stable, no changes does note she is having nasal congestion, sinus pressure, headaches headache could have been a side effect to the Zeoman, it will taper off otherwise doing well DANTE JEAN BAPTISTE [address] [place], [address], [facility] 08/19/2023 16:28:55 5 text/html Annual [...] take away night-time dose DANTE JEAN BAPTISTE [address] [place] [address], [phone], [facility] 05/19/2024 16:59:49 OBGyn Episode No OBEpisode recorded.
== END 2024-06-18 08:30 | disposition home or self-care (01) ==
LOC: HO.MAMMO 08:29
PROVIDERS: PCP Physician Assistant; Visit Provider Physician Assistant
DX: R92.2 Inconclusive mammogram (principal)
CPT/HCPCS: 76641

== ENCOUNTER → 2024-06-18 08:30 | Outpatient (BNV) | payer OTHER, SELFPAY | PROVIDERS: PCP Physician Assistant; Visit Provider Internal Medicine | DX: R92.323 Mammographic fibroglandular density, bilateral breasts (principal) | CPT/HCPCS: 76641 ==

== ENCOUNTER 2024-06-24 13:55 | Outpatient (REF) | payer OTHER, SELFPAY ==
--- NOTE | ~2024-06-24 | MM_ITS ---
EXAMINATION: DXA BONE DENSITY AXIAL HISTORY: Estrogen deficiency TECHNIQUE: [email or web address] Dual energy absorptiometry (DEXA) of the lumbar spine, total left hip, and femoral neck was performed. COMPARISON: Comparison is made with the prior examination dated 05/30/2022. FINDINGS: The bone mineral density of the lumbar spine is 0.934 with a T-score of -2.1, and a Z-score of 0.0. This represents a BMD change of -5.5% compared to the prior exam. This is statistically significant. The bone mineral density of the left total hip is 0.719 with a T-score of -2.3, and a Z-score of -0.8. This represents BMD change of -10.0% compared to the prior exam. This is statistically significant. The bone mineral density of the left femoral neck is 0.767 with a T-score of -1.9, and a Z-score of -0.2. This represents BMD change of 11.2% compared to the prior exam. MM/XR DEXA axial skeleton IMPRESSION: Based on bone mineral density, and according to World Health Organization (WHO) criteria, the diagnosis is consistent with osteopenia. All bone density values are in grams per centimeter squared (g/cm2). Statistically, 68% of repeat scans fall within 1 SD (+/- 0.010 g/cm2 for AP spine L1-L4) and 1 SD (+/- 0.012 g/cm2 for femur total) FRAX is a trademark of the [employer] [place] [employer] Metabolic Bone Disease, a World Health Organization (WHO) Collaborating Center. Electronically signed by: Ubaldo Holley MD 06/24/2024 02:27 PM [facility]
--- OUTSIDE RECORDS SUMMARY | 2024-06-24 16:50 | XMS_ITS | Clinical Summary ---
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
--- OUTSIDE RECORDS SUMMARY | 2024-06-24 16:50 | XMS_ITS | Data Portability ---
Author Organization [facility] Home Service Address [address] [place] [address] Assessment Encounter Date Assessment Date Assessment LastModified [...] phospholi pase A2 (pla2), serum 2024 025 [facility], [address] [place] [address], [address], 05/19/2024 16:44:01 lipid panel, serum 2024 025 [facility], [address] [place] [address], [address], 05/19/2024 16:44:01 CMP, serum or plasma 2024 025 [facility], [address] [place] [address], [address], 06/08/2024 13:09:10 CBC w/ auto diff 2024 025 [facility], [address] [place] [address], [address], 05/19/2024 16:44:01 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, blood or tissue - blood test 2023 024 linked[facility] (Centralized Electronic Ordering - All Locations), Patient Can Go To The Location Of Their Choice, [address] 05/16/2023 14:07:50 apolipopr otein A-I + A-II + B + C panel, QN, serum or plasma 2023 024 [facility], [address] [place] [address], [address], 05/16/2023 14:08:54 lipid panel, serum 2023 024 [facility], [address] [place] [address], [address], 06/02/2023 17:22:17 CMP, serum or plasma 2023 024 [facility], [address] [place] [address], [address], 06/02/2023 17:22:17 CBC w/ auto diff 2023 024 [facility], [address] [place] [address], [place], [address], 06/02/2023 17:22:17 vitamin D, 25-hydrox y, total, serum 2022 023 [facility], [place], [address], 05/10/2022 15:11:53 hepatic function panel, serum 2022 023 [facility], [place], [address], 05/10/2022 15:11:53 CMP, serum or plasma 2022 023 [facility], [place], [address], 05/10/2022 15:11:53 CBC w/ auto diff 2022 023 [facility], [address] [place] [address] [place], [address], 05/10/2022 15:11:53 lipid panel, blood 2022 023 [facility], [address] [place] [address] [place], [address], 05/10/2022 15:11:53 Referral None recorded. Procedures None recorded. Surgeries None recorded. Imaging bone density 2024 025 [facility]uling, [address] [facility] [place], [address], 05/25/2024 08:22:02 MRI, breast, bilateral , w/wo contrast - dense breast tissue, sig family hx of breast cancer, MM cannot fully access for malignanc y MM cannot fully access for malignanc y 2024 025 [facility], [address] [place] [address] [place], [address], 05/28/2024 10:28:27 bone density - due for repeat bone scan 2022 023 [facility], [address] [facility], [place], [address], 05/24/2022 10:39:28 Medication Orders fluticaso ne propionat e 50 mcg/actua tion nasal spray,barbara pension 2023 024 [facility][id number], [address] [facility] [place], [address], 08/19/2023 16:21:31 Linzess 72 mcg capsule 2023 [facility]24 [id number] [address] [facility] [place], [address], 06/09/2023 10:51:01 clobetaso l 0.05 % topical cream 2023 024 VÍCTOR [id number], [address], [place], [address], 05/16/2023 14:14:28 prednison e 10 mg tablet 2022 023 [email or web address] [id number], [address], [place], [address], 05/16/2023 13:33:57 Patient TargetsNo targets recorded. Patient InstructionsNo instructions recorded. Reason for Referral None Reported. Results Created Date Observation Date Name Description Value Unit Range Abnormal Flag Note LastModifiedBy Organization Detail LastModifiedTime 05/02/1905/01/2021 MRI, cervi danny spine , w/wo contr ast No observ ation record ed. [facility] [address], [place], [address], 05/02/2021 13:55:24 10/23/19 22 10/17/2021 US, ramona méndez s, lower extre mity No observ ation record ed. [facility] [address], [place], [address], 10/22/2021 13:38:10 11/16/19 22 01/07/2020 bone densi ty No observ ation record ed. [facility] [address], [place], [address], 11/16/2021 08:49:59 02/28/20 22 02/22/2022 US, clark aparicio, abdom inal aorta No observ ation record ed. VÍCTOR Not Available 2021 08:09:48 05/30/19 23 05/30/2022 bone densi ty No observ ation record ed. [facility] Central Scheduling [address] [place], [address], 05/31/2022 09:41:01 07/30/19 23 07/26/2022 CT, coron pal calci um score No observ ation record ed. [email or web address] [facility] [address] [facility], [place], [address], 07/30/2022 09:12:07 09/25/19 23 09/18/2022 imagi ng/di agnos tic resul t No observ ation record ed. [facility] [address] , [place], [address], 09/24/2022 12:10:16 03/23/20 23 03/03/2023 MAMMO , anita engel, digit al, bilat eral No observ ation record ed. [address] [place], [address], 03/24/2023 08:36:35 01/20/20 24 01/16/2024 US, duple x, renal arter y No observ ation record ed. [facility] [address] [facility], [place], [address], 01/20/2024 08:48:28 04/01/20 24 03/31/2024 CT, abdom en + pelvi s, w/o contr ast No observ ation record ed. [email or web address] [facility] [place] [address] [address], [place], [address], 04/02/2024 12:09:00 04/28/1904/16/2024 MAMMO , anita engel, digit al, bilat eral No observ ation record ed. [email or web address] [address] [place], [address], 04/28/2024 19:00:16 06/18/19 25 06/18/2024 US, breas t, bilat eral, compl ete No observ ation record ed. [email or web address] [address] [place], [address], 06/18/2024 10:05:43 06/24/19 25 06/24/2024 bone densi ty No observ ation record ed. [address] [place], [address], 06/24/2024 14:31:50 Result Notes None recorded. Problems Name Problem SNOMED Code Status Onset Date Resolution Date Notes Provider Name and Address Organization Details Recorded Time Hypermet ropia 85476259 Active 2018 Not Available [facility] 2 10:18:57 Myopia 60167227 Active 2018 Not Available [facility] 2 10:18:57 Central cord syndrome of cervical spinal cord 146650059 Active 2019 Not Available [facility] 2 10:18:57 Tetraple tali 42183853 Active 2019 incomplet e C5-C7 Not Available [facility] 2 10:18:57 Osteopor osis 94741980 Active 2020 Not Available [facility] 2 10:18:57 Dysuria 60682860 Active 2021 Not Available [facility] 2 10:18:57 Aneurysm of splenic artery 82971305 Active 2021 DANTE JEAN BAPTISTE [address] [place], [address], [facility] 2 09:13:53 Injectio n site inflamma tion 81422327 Active 2021 DANTE JEAN BAPTISTE [address] [place], [address], [facility] 2 11:47:32 Kidney stone 49470362 Active 2022 DANTE JEAN BAPTISTE [address] [place], [address], [facility] 3 14:21:48 Vitamin D deficien cy 28483717 Active 2022 DANTE JEAN BAPTISTE [address] [place], [address], [facility] 3 14:24:02 Osteopen ia 163999300 Active 2022 DANTE JEAN BAPTISTE [address] [place], [address], [facility] 3 14:11:03 Hyperlip idemia 27219407 Active 2022 DANTE JEAN BAPTISTE [address] [place], [address], [facility] 3 15:42:47 Constipa tion 16443858 Active 2023 DANTE JEAN BAPTISTE [address] [place], [address], [facility] 4 13:52:05 Aneurysm of spinal artery 8413129 Active 2023 DANTE JEAN BAPTISTE [address] [place], [address], [facility] 4 14:09:15 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 485047683 Active 2023 DANTE JEAN BAPTISTE [address] [place], [address], [facility] 4 14:09:16 Vesicula r hand eczema 215047078 Active 2023 DANTE JEAN BAPTISTE [address] [place], [address], [facility] 4 14:14:11 Chronic constipa tion 635437759 Active 2023 DANTE JEAN BAPTISTE [address] [place], [address], [facility] 4 14:49:18 Allergic rhinitis 67285810 Active 2023 DANTE JEAN BAPTISTE [address] [place], [address], [facility] 4 16:20:03 Impacted cerumen in right ear 14522777892 35843 Active 2023 DANTE JEAN BAPTISTE [address] [place], [address], [facility] 4 16:25:00 Tinnitus 75197572 Active 2023 DANTE JEAN BAPTISTE [address] [place], [address], [facility] 4 08:55:40 Pelvic floor dysfunct ion 011436629 Active 2023 DANTE JEAN BAPTISTE [address] [place], [address], [facility] 4 12:08:29 Hypercho lesterol emia 25965908 Active 2017 Good RR Not Available [facility] 2 10:18:57 Heteroge neously dense breast composit ion 113460817 Active 2024 DANTE JEAN BAPTISTE [address] [place], [address], [facility] 5 16:22:45 Dupuysae reyes's contract ure of finger 471522711 Active 2024 DANTE JEAN BAPTISTE [address] [place], [address], [facility] 5 16:33:31 Liver function tests outside referenc e range 033460176 Active 2024 DANTE JEAN BAPTISTE [address] [place], [address], [facility] 5 09:34:38 Notes:only has the left kidn ey Problem Notes None recorded. Procedures Surgical History None recorded. Imaging Results Imaging Date Name Status LastModified by Organiz atformerly [facility] Details LastModified Time 05/01/2021 MRI, cervical spine, w/wo contrast completed [facility] [address], [place], [address], 05/02/2021 13:55:24 10/17/2021 US, duplex, venous, lower extremity completed [facility] [address], [place], [address], 10/22/2021 13:38:10 01/07/2020 bone density completed [address], [place], [address], 11/16/2021 08:49:59 02/22/2022 US, duplex, abdominal aorta completed VÍCTOR Information not available 02/28/2022 08:09:48 05/30/2022 bone density completed [facility] Scheduling [address] [place], [address], 05/31/2022 09:41:01 07/26/2022 CT, coronary calcium score completed [email or web address] [facility] [address] [place], [address], 07/30/2022 09:12:07 09/18/2022 imaging/diagn ostic result completed [facility] [address], [place], [address], 09/24/2022 12:10:16 03/03/2023 MAMMO, screening, digital, bilateral completed [facility] [address] [place] [address] [place], [address], 03/24/2023 08:36:35 01/16/2024 US, duplex, renal artery completed [facility] [address] [facility], [place], [address], 01/20/2024 08:48:28 03/31/2024 CT, abdomen + pelvis, w/o contrast completed [email or web address] [facility] [place] [address], [address], 04/02/2024 12:09:00 04/16/2024 MAMMO, screening, digital, bilateral completed [email or web address] [address] [place], [address], 04/28/2024 19:00:16 06/18/2024 US, breast, bilateral, complete completed [email or web address] [address] [place], [address], 06/18/2024 10:05:43 06/24/2024 bone density active [facility] [address] [place], [address], 06/24/2024 14:31:50 Procedure Notes None recorded. Medical Equipment None Reported. Allergies Allergen ID Allergen Name Allergen Category Reaction Reaction Severity Criticality Documentation Date Start Date Code Code System Note Provider Name and Address Organization Details Recorded Time 3152 Product containin g penicilli n (product) medicatio n rash Not available Not available 10/27/2018 56092 8001 SNOMED [facility] 9 10:18:39 5324 Macrobid medicatio n nausea moderate Not available 05/11/2021 56748 1 RxNorm DANTE JEAN BAPTISTE [address] [place], [address], [facility] 2 11:13:41 984 amoxicill in medicatio n rash Not available Not available 08/15/2017 723 RxNorm Bebe walker [facility] 8 08:29:49 985 Substance with sulfonami de structure and antibacte rial mechanism of action (substanc e) medicatio n rash Not available Not available 08/15/2017 51900 8003 SNOMED [facility] 8 08:29:59 Medications Name Sig [...] completed Not Available Not Available Not Available Xeomin 200 unit intramusc ular solution active Not Available Not Available Not Available Linzess [...] Updated DateTime 3 160.66 cm 19 kg/m2 51006.9 8 g 98 % 98 % 62 /min 100 mm[Hg] 60 mm[Hg] Theresa Chicas [facility] 3 13:38:33 Date Recorded Body weight Heart rate Oxygen saturation Oxygen saturation in Arterial blood by Pulse oximetry Systolic blood pressure Diastolic blood pressure Provider Name and Address Organization Details Last Updated DateTime 4 03739.1 8 g 80 /min 98 % 98 % 120 mm[Hg] 70 mm[Hg] Rosa Delgadokes [facility] 4 13:37:17 Date Recorded Body height Body mass index (BMI) Body weight Heart rate Oxygen saturation Oxygen saturation in Arterial blood by Pulse oximetry Systolic blood pressure Diastolic blood pressure Provider Name and Address Organization Details Last Updated DateTime 4 160.66 cm 20.6 kg/m2 77540.3 1 g 83 /min 96 % 96 % 116 mm[Hg] 62 mm[Hg] Hill Jiménez [facility] Internal [facility] 4 16:07:16 Date Recorded Body height Body mass index (BMI) Body weight Heart rate Oxygen saturation Oxygen saturation in Arterial blood by Pulse oximetry Systolic blood pressure Diastolic blood pressure Provider Name and Address Organization Details Last Updated DateTime 5 160.02 cm 20.4 kg/m2 67044.1 2 g 84 /min 93 % 93 % 120 mm[Hg] 78 mm[Hg] DANTE JEAN BAPTISTE [address] [place], [address] [place] [address] Internal Medicine 5 16:08:35 Social History Question Answer Notes LastModified by Organizat ion Details LastModified Time Tobacco Smoking Status Never Smoker Not Available [facility] 02/29/2020 03:36:24 What Was The Date Of [...] virus, quadrivalent, preservative 1 completed Not Available [facility] 12/11/2022 09:42:48 COVID-19, mRNA, LNP-S, PF, 30 mcg/0.3 mL dose 1 completed Theresa walker [place] [facility] 03/05/2021 08:34:14 COVID-19, mRNA, LNP-S, PF, 30 mcg/0.3 mL dose 2 completed Not Available [facility] 12/11/2022 09:42:48 COVID-19, mRNA, LNP-S, PF, 50 mcg/0.5 mL dose 2 completed Not Available [facility] 12/11/2022 09:42:48 zoster recombinant 2 completed Not Available [facility] 12/11/2022 09:42:48 zoster recombinant 2 completed Not Available [facility] 12/11/2022 09:42:48 influenza, unspecified formulation 2 completed Not Available [facility] 12/11/2022 09:42:48 Influenza, split virus, quadrivalent, preservative 9 completed Not Available [facility] 11/08/2020 09:44:49 zoster recombinant 9 completed Not Available [facility] 11/08/2020 09:44:49 Influenza, split virus, quadrivalent, preservative 0 completed Not Available [facility] 11/08/2020 09:44:49 COVID-19, mRNA, LNP-S, PF, 100 mcg/0.5mL dose or 50 mcg/0.25mL dose 1 completed Not Available [facility] 11/08/2020 09:44:49 COVID-19, mRNA, LNP-S, PF, 100 mcg/0.5mL dose or 50 mcg/0.25mL dose completed Not Available [facility] 11/08/2020 09:44:49 Past Encounters Encounter ID Performer Location Encounter Start Date Encounter Closed Date Diagnosis/Indication Diagnosis SNOMED-CT Code Diagnosis ICD10 Code Diagnosis Note [id number] Sihrlene Escobar NP, [facility] [address] [place] [address], [address] [facility] [place] [address] 08/15/2017 14:21:53 08/15/2017 15:25:04 Bursitis of left shoulder 8016959965 20593 M75.52 [id number] Shirlene Escobar NP, [facility] Internal [address], [place] [facility] [place] [address] 09/29/2017 10:05:46 09/29/2017 17:11:03 Streptococcal infectious disease 86512522 A49.1 Cervical lymphadenopathy 474377061 R59.0 Malaise and fatigue 2717 01108 R53.81 f/u in office in 2 days [id number] Shirlene Escobar NP, [facility] Internal [address], [place] [facility] [place] [address] 10/01/2017 09:05:44 10/01/2017 10:28:19 Heart murmur 27263044 R01.1 f/u in office 1 week after exam Viral syndrome 957556866 B34.9 symptoms improved work note provided for this week [id number] Shirlene Escobar NP, [facility] Internal [address], [place] [facility] [place] [address] 10/27/2017 15:45:49 10/27/2017 16:37:31 Intermittent palpitations 970819673 R00.2 Hypercholesterolemia 136 82062 E78.00 Good RR, continue healthy lifestyle [id number] Shirlene Escobar NP, [facility] [address], [place] [facility] [place] [address] 03/31/2018 09:27:19 03/31/2018 10:08:36 Diarrhea 16377483 R19.7 Family problems 18528369 4 Z63.79 discussed [id number] July LEONCIO Vences [facility] [address] [facility],[place] [address] 10/27/2018 10:13:36 10/27/2018 11:48:51 Adult health examination 023857852 Z00.00 Active or passive immunization 228758949 Z23 Hypercholesterolemia 136 10522 E78.00 Microscopic hematuria 19 8461087 R31.21 s/p menopause no uti sx Vitamin D deficiency 347 20916 E55.9 Cellulitis 427171696 L03 .90 2/2 wasp or yellow jacket sting [id number] DANTE JEAN BAPTISTE [facility] [address] [facility],[place] [address] 03/07/2020 08:25:47 03/07/2020 15:47:24 Central cord syndrome of cervical spinal cord 699384338 S14.129A doing much better fu as needed Tetraplegia 59978929 G82 .53 doing well able to walk and move with limited assistance of walker [id number] DANTE JEAN BAPTISTE [facility] [address] [facility],[place] [address] 03/21/2020 11:47:00 03/21/2020 16:06:01 Osteopenia 641100810 M85.80 will start on alendronat e qdwk Spasm 41756334 R25.2 will check mag level Tetraplegia 35131242 G82 .54 doing well able to walk and move with limited assistance of walker improving Central co rd syndrome of cervical spinal cord 477999998 S14.129A doing better, 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 [id number] DANTE JEAN BAPTISTE [facility] [address] [facility],[place] [address] 04/10/2020 11:43:36 04/10/2020 16:18:23 Herpes zoster 0176433 B02.9 looks like shingles rash following trigeminal pathway will see if improvemen t on valtrex and pred taper, concern is that is on her rigth eyelid, it being so close to her eye Central co rd syndrome of cervical spinal cord 114185450 S14.129A doing better, 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 Tetraplegia 36098195 G82 .54 doing well able to walk and move with limited assistance of walker improving [id number] Berry Robles DO [facility] [address] [facility],[place] [address] [facility] [place] [address] 05/31/2020 14:54:50 05/31/2020 16:09:05 Central cord syndrome of cervical spinal cord 060291512 S14.129D long detailed discussion we will havce her see specialist tomorrow a dr zapata plan to increase her baclofen to 10 tid relates having issues with burning sensation and has had issues with this in the leg as well also she wishes to come off the oxycodone only taking this for the burning sensation in her hands and leg Hypercholesterolemia 136 86568 E78.00 will cont to follow and we will repeat lab shortly Lower limb spasticity 39 9880368 M62.838 she is only taking 5 mg tid we will increase to 10mg [id number] DANTE JEAN BAPTISTE [facility] [address] [facility],[place] [address] 09/27/2020 10:47:56 09/27/2020 11:12:04 Tetraplegia 10040171 G82.54 doing well able to walk and move with limited assistance of walker and even now without one improving and follows with her neuro and PT Peripheral venous insufficiency 12111320 I87.2 will address this at next visit so I can do a proper exam Bite of no nvenomous spider 317377250 W57.XXXS possibly a spider bite will start on short course of doxy [id number] DANTE JEAN BAPTISTE [facility] [address] [facility],[place] [address] 10/04/2020 16:20:05 10/04/2020 16:53:29 Central cord syndrome of cervical spinal cord 247837811 S14.129A doing better, 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00 needs lab work Hypomagnesemia 274866796 E83.42 will recheck Anemia 198601440 D50.0 will fu with lab work [id number] DANTE JEAN BAPTISTE [facility] [address] [facility], [place] [address] 12/29/2020 09:39:24 01/02/2021 11:49:00 Central cord syndrome of cervical spinal cord 944130834 S14.129A doing better, 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 Hypercholesterolemia 136 35219 E78.00 start red yeast rice and fish oil [id number] DANTE JEAN BAPTISTE [facility] [address] [facility] [address] 05/07/2021 09:53:25 05/07/2021 16:29:31 Dysuria 76777132 R30.0 will fu with treatment plan [id number] DANTE JEAN BAPTISTE [facility] [address] [facility], [place] [address] 05/11/2021 09:17:34 05/18/2021 10:22:27 Tetraplegia 71567992 G82.54 recent fu, having an MRI with neurosurge ry Dysuria 58651053 R30.0 stop medication except anti-emeti c Nausea 149198395 R11.0 continue as needed if she is nauseous [id number] DANTE JEAN BAPTISTE [facility] [address] [facility] [address] [address] 05/10/2022 13:24:42 05/14/2022 08:36:53 Active or passive immunization 307314382 Z23 advised Adult heal th examination 914328618 Z00.00 needs lab work [address] co rd syndrome of cervical spinal cord 968009459 S14.129A will adjust to the 10 mg prednisone as needed on top of the 5 mg Screening for osteoporosis 166182105 Z13.820 will set up with bone density screeningn eeds recheck Kidney stone 47019571 N2 0.0 left kidneyonly has on kidney Aneurysm o f splenic artery 82983288 I72.8 seeing cardio for eval since her insurance denied the CTA for it Vitamin D deficiency [id number] 74093 E55.9 will recheck [id number] DANTE JEAN BAPTISTE [facility] [address] [facility] [address],[place] [address] 05/16/2023 13:27:15 05/16/2023 15:25:23 Constipation [id number] K59.01 will try first with linzess, would like to try motegrity at the end Aneurysm o f spinal artery [id number] I72.8 stable 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 020933850 G82.54 improving Adult heal th examination 858967487 Z00.00 needs lab workfor routine stuff Hyperlipidemia 80226889 E78.01 will recheck lipid levels Family his tory of breast cancer 425588265 Z80.3 found mutation her daughter haswill check for this Vesicular hand eczema 40 7324123 L30.8 will start on clobetasol to see if alleviates her symptoms [id number] DANTE JEAN BAPTISTE [facility] [address],[place] [address] 08/19/2023 15:57:08 08/20/2023 08:22:19 Allergic rhinitis 03059505 J30.1 agreed to trying flonase and will use debrox on the Impacted c erumen in right ear [id number] 305194 H61.21 will use debrox [id number] DANTE JEAN BAPTISTE [facility] [address],[place] [address] 05/19/2024 15:52:54 05/21/2024 08:08:28 Active or passive immunization 489507749 Z23 advised Adult heal th examination 131424532 Z00.00 BP is excellent Heterogene ously dense breast composition 118999731 R92.2 suggested MRI Dupuytren' s contracture of finger 005326091 M72.0 bilaterall y, seeing hand specialist , does not need surgery at this time Osteoporosis 39728460 M8 1.0 will set up bone density, due for two year checkhas only been doing the calcium and vit d due to intoleranc e of the alendronat e Hyperlipidemia 89232912 E78.01 will recheck lipid levels Health Concerns Section Related Observation LastModified by Organization Zahra anthony LastModified Time None Recorded Concern Status LastModified by Organization Details LastModified Time None Recorded Advance Directives Directive None Recorded Payers Encounter Date Sequence Insurance Name Policy Number Policy Dennis Covered Member ID Dennis Member ID Guarantor Name 05/11/2021 1 [facility] [id number] 1 Vincent Cuevas [id number] Vincent Cuevas 05/10/2022 1 [facility] [id number] 1 Vincent Cuevas [id number] Vincent Cuevas 05/16/2023 1 [facility] [id number] 1 Vincent Cuevas [id number] Vincent Cuevas 08/19/2023 1 [facility] [id number] 1 Vincent Cuevas [id number] Vincent Cuevas 05/19/2024 1 [facility] [id number] 1 Vincent Cuevas [id number] Vincent Cuevas Notes Date Note Type Note [...] effectswill stoponly continue anti-emetic DANTE JEAN BAPTISTE [address] [place] [address], [place], [address], [facility] 05/11/2021 11:35:03 3 text/html Annual WellnessReported bypatient.Diet and Nutrition:healthy diet; discussed vitamin and supplement use; discussed portion control; discussed maintaining calcium balance; discussed diet improvement Physical Activity:exercises on a regular basis; recent increase in physical activity; good physical condition; discussed weightbearing activities; discussed exercise habits; does yoga walks does chair yoga at [facility] in [place] Additional Lifestyle Factors:no tobacco use; no alcohol [...] using a transport service DANTE JEAN BAPTISTE [address] [place] [address], [place], [address], [facility] 05/10/2022 14:28:42 4 text/html Annual [...] the severe constipation DANTE JEAN BAPTISTE [address] [place], [address], [facility] 05/16/2023 14:20:27 4 text/html c/o tinnitus in the bilateral ears the patient is still having the ringing in the earsR side, more so than left sidehearing is stable, no changes does note she is having nasal congestion, sinus pressure, headaches headache could have been a side effect to the Zeoman, it will taper off otherwise doing well DANTE JEAN BAPTISTE [address] [place], [address], [facility] 08/19/2023 16:28:55 5 text/html Annual [...] away night-time dose DANTE JEAN BAPTISTE [address] [facility], [place], [address], [place] [facility] - [facility] 05/19/2024 16:59:49 OBGyn Episode No OBEpisode recorded.
== END 2024-06-24 13:56 | disposition home or self-care (01) ==
LOC: HO.MAMMO 13:55
PROVIDERS: PCP Internal Medicine; Visit Provider Physician Assistant
DX: M81.0 Age-related osteoporosis without current pathological fracture (principal)
CPT/HCPCS: 77080

== ENCOUNTER → 2024-06-24 14:00 | Outpatient (BNV) | payer OTHER, SELFPAY | PROVIDERS: PCP Internal Medicine; Visit Provider Radiology Diagnostic Radiology | DX: E28.39 Other primary ovarian failure (principal) | CPT/HCPCS: 77080 ==

== ENCOUNTER 2024-07-17 09:47 | Outpatient (REF) | payer OTHER, SELFPAY ==
--- OUTSIDE RECORDS SUMMARY | 2024-07-17 09:51 | XMS_ITS | Clinical Summary ---
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 Name Role Phone Berry Robles DO Primary Care Provider [phone] Social History Tobacco Use Types Packs/Day Years [...] AM EDT Office Visit Orthopedic Surgery - [place] [address] [place] [address] Karen Cruz PA [address] [place] [address] Health Maintenance Due Date Last [...] Documents on File Type Date Recorded Patient Side Puller Expl anation Health Care Decision (hx) 02/12/2020 YOVANI GARCIA DIRECTIVE Care Teams 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
--- OUTSIDE RECORDS SUMMARY | 2024-07-17 09:51 | XMS_ITS | Data Portability ---
Author Organization [facility] Home Service Address [address] [place] [address] Assessment Encounter Date Assessment Date Assessment LastModified [...] phospholi pase A2 (pla2), serum 2024 025 [facility], [address] [place] [address], [address], 05/19/2024 16:44:01 lipid panel, serum 2024 025 [facility], [address] [place] [address], [address], 05/19/2024 16:44:01 CMP, serum or plasma 2024 025 [facility], [address] [place] [address], [address], 06/08/2024 13:09:10 CBC w/ auto diff 2024 025 [facility], [address] [place] [address], [address], 05/19/2024 16:44:01 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, blood or tissue - blood test 2023 024 [facility] (Centralized Electronic Ordering - All Locations), Patient Can Go To The Location Of Their Choice, [address] 05/16/2023 14:07:50 apolipopr otein A-I + A-II + B + C panel, QN, serum or plasma 2023 024 [facility], [address] [place] [address], [address], 05/16/2023 14:08:54 lipid panel, serum 2023 024 [facility], [address] [place] [address], [address], 06/02/2023 17:22:17 CMP, serum or plasma 2023 024 [facility], [address] [place] [address], [address], 06/02/2023 17:22:17 CBC w/ auto diff 2023 024 [facility], [address] [place] [address], [place], [address], 06/02/2023 17:22:17 vitamin D, 25-hydrox y, total, serum 2022 023 [facility], [place], [address], 05/10/2022 15:11:53 hepatic function panel, serum 2022 023 [facility], [place], [address], 05/10/2022 15:11:53 CMP, serum or plasma 2022 023 [facility], [place], [address], 05/10/2022 15:11:53 CBC w/ auto diff 2022 023 [facility], [address] [place] [address] [place], [address], 05/10/2022 15:11:53 lipid panel, blood 2022 023 [facility], [address] [place] [address] [place], [address], 05/10/2022 15:11:53 Referral None recorded. Procedures None recorded. Surgeries None recorded. Imaging bone density 2024 025 [facility] Central Scheduling, [address] [facility] [place], [address], 05/25/2024 08:22:02 MRI, breast, bilateral , w/wo contrast - dense breast tissue, sig family hx of breast cancer, MM cannot fully access for malignanc y MM cannot fully access for malignanc y 2024 025 [facility], [address] [place] [address] [place], [address], 05/28/2024 10:28:27 bone density - due for repeat bone scan 2022 023 [facility] Central Scheduling, [address] [facility], COURTNEY Morris, [address], 05/24/2022 10:39:28 Medication Orders fluticaso ne propionat e 50 mcg/actua tion nasal spray,barbara pension 2023 024 [id number], [address] [facility] [place], [address], 08/19/2023 16:21:31 Linzess 72 mcg capsule 20[id number] [address] [facility] [place], [address], 06/09/2023 10:51:01 clobetaso l 0.05 % topical cream 2023 024 VÍCTOR [id number], [address], [place] Tobin, [address], 05/16/2023 14:14:28 prednison e 10 mg tablet 2022 023 [email or web address] [id number], [address], [place], [address], 05/16/2023 13:33:57 Patient TargetsNo targets recorded. Patient InstructionsNo instructions recorded. Reason for Referral None Reported. Results Created Date Observation Date Name Description Value Unit Range Abnormal Flag Note LastModifiedBy Organization Detail LastModifiedTime 05/02/1905/01/2021 MRI, cervi danny spine , w/wo contr ast No observ ation record ed. [facility] ([facility]) [address], [place], [address], 05/02/2021 13:55:24 10/23/19 22 10/17/2021 US, ramona méndez s, lower extre mity No observ ation record ed. [facility] [address], [place], [address], 10/22/2021 13:38:10 11/16/19 22 01/07/2020 bone densi ty No observ ation record ed. [facility] [address], [place], [address], 11/16/2021 08:49:59 02/28/20 22 02/22/2022 US, clark aparicio, abdom inal aorta No observ ation record ed. VÍCTOR Not Available 2021 08:09:48 05/30/19 23 05/30/2022 bone densi ty No observ ation record ed. [facility] Central Scheduling [address] [place], [address], 05/31/2022 09:41:01 07/30/19 23 07/26/2022 CT, coron pal calci um score No observ ation record ed. [email or web address] [facility] [address] [facility], [place], [address], 07/30/2022 09:12:07 09/25/19 23 09/18/2022 imagi ng/di agnos tic resul t No observ ation record ed. [facility] [address] , [place], [address], 09/24/2022 12:10:16 03/23/20 23 03/03/2023 MAMMO , anita engel, digit al, bilat eral No observ ation record ed. [address] [place], [address], 03/24/2023 08:36:35 01/20/20 24 01/16/2024 US, duple x, renal arter y No observ ation record ed. [facility] [address] [facility], [place], [address], 01/20/2024 08:48:28 04/01/20 24 03/31/2024 CT, abdom en + pelvi s, w/o contr ast No observ ation record ed. [email or web address] [facility] [address] [address], [place], [address], 04/02/2024 12:09:00 04/28/1904/16/2024 MAMMO , anita engel, digit al, bilat eral No observ ation record ed. [email or web address] [address] [place], [address], 04/28/2024 19:00:16 06/18/19 25 06/18/2024 US, breas t, bilat eral, compl ete No observ ation record ed. [address] [place], [address], 06/18/2024 10:05:43 06/24/19 25 06/24/2024 bone densi ty No observ ation record ed. [address] [place], [address], 06/25/2024 08:51:26 Result Notes None recorded. Problems Name Problem SNOMED Code Status Onset Date Resolution Date Notes Provider Name and Address Organization Details Recorded Time Hypermet ropia 81218168 Active 2018 Not Available [facility] 2 10:18:57 Myopia 69899345 Active 2018 Not Available [facility] 2 10:18:57 Central cord syndrome of cervical spinal cord 610569426 Active 2019 Not Available [facility] 2 10:18:57 Tetraple tali 32843349 Active 2019 incomplet e C5-C7 Not Available [facility] 2 10:18:57 Osteopor osis 91117024 Active 2020 Not Available [facility] 2 10:18:57 Dysuria 03543337 Active 2021 Not Available [facility] 2 10:18:57 Aneurysm of splenic artery 53148980 Active 2021 DANTE JEAN BAPTISTE [address] [place], [address], [facility] 2 09:13:53 Injectio n site inflamma tion 75902299 Active 2021 DANTE JEAN BAPTISTE [address] [place], [address], [facility] 2 11:47:32 Kidney stone 70412455 Active 2022 DANTE JEAN BAPTISTE [address] [place], [address], [facility] 3 14:21:48 Vitamin D deficien cy 97803998 Active 2022 DANTE JEAN BAPTISTE [address] [place], [address], [facility] 3 14:24:02 Osteopen ia 684555657 Active 2022 DANTE JEAN BAPTISTE [address] [place], [address], [facility] 3 14:11:03 Hyperlip idemia 55608534 Active 2022 DANTE JEAN BAPTISTE [address] [place], [address], [facility] 3 15:42:47 Constipa tion 45095076 Active 2023 DANTE JEAN BAPTISTE [address] [place], [address], [facility] 4 13:52:05 Aneurysm of spinal artery 7322086 Active 2023 DANTE JEAN BAPTISTE [address] [place], [address], [facility] 4 14:09:15 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 327826442 Active 2023 DANTE JEAN BAPTISTE [address] [place], [address], [facility] 4 14:09:16 Vesicula r hand eczema 339197425 Active 2023 DANTE JEAN BAPTISTE [address] [place], [address], [facility] 4 14:14:11 Chronic constipa tion 960312987 Active 2023 DANTE JEAN BAPTISTE [address] [place], [address], [facility] 4 14:49:18 Allergic rhinitis 46807809 Active 2023 DANTE JEAN BAPTISTE [address] [place], [address], [facility] 4 16:20:03 Impacted cerumen in right ear 25245539429 92972 Active 2023 DANTE JEAN BAPTISTE [address] [place], [address], [facility] 4 16:25:00 Tinnitus 99006876 Active 2023 DANTE JEAN BAPTISTE [address] [place], [address], [facility] 4 08:55:40 Pelvic floor dysfunct ion 782048363 Active 2023 DANTE JEAN BAPTISTE [address] [place], [address], [facility] 4 12:08:29 Hypercho lesterol emia 60372116 Active 2017 Good RR Not Available [facility] 2 10:18:57 Heteroge neously dense breast composit ion 401552963 Active 2024 DANTE JEAN BAPTISTE [address] [place], [address], [facility] 5 16:22:45 Dupuytre n's contract ure of finger 243696542 Active 2024 DANTE JEAN BAPTISTE [address] [place], [address], [facility] 5 16:33:31 Liver function tests outside referenc e range 726886699 Active 2024 DANTE JEAN BAPTISTE [address] [place] [address], [address], [facility] 5 09:34:38 Notes:only has the left kidn ey Problem Notes None recorded. Procedures Surgical History None recorded. Imaging Results Imaging Date Name Status LastModified by Organiz ation Details LastModified Time 05/01/2021 MRI, cervical spine, w/wo contrast completed [email or web address] [facility] ([facility]) [address], [place], [address], 05/02/2021 13:55:24 10/17/2021 US, duplex, venous, lower extremity completed [facility] [address], [place], [address], 10/22/2021 13:38:10 01/07/2020 bone density completed [facility] [address], [place], [address], 11/16/2021 08:49:59 02/22/2022 US, duplex, abdominal aorta completed VÍCTOR Information not available 02/28/2022 08:09:48 05/30/2022 bone density completed [facility] Central Scheduling [address] [place], [address], 05/31/2022 09:41:01 07/26/2022 CT, coronary calcium score completed tavon [facility] [address] [place], [address], 07/30/2022 09:12:07 09/18/2022 imaging/diagn ostic result completed [facility] [address], [place], [address], 09/24/2022 12:10:16 03/03/2023 MAMMO, screening, digital, bilateral completed [facility] [address] [place] [address] [place], [address], 03/24/2023 08:36:35 01/16/2024 US, duplex, renal artery completed [facility] [address] [facility], [place], [address], 01/20/2024 08:48:28 03/31/2024 CT, abdomen + pelvis, w/o contrast completed tavon [facility] [place] [address] [place], [address], 04/02/2024 12:09:00 04/16/2024 MAMMO, screening, digital, bilateral completed [email or web address] [address] [place], [address], 04/28/2024 19:00:16 06/18/2024 US, breast, bilateral, complete completed [email or web address] [address] [place], [address], 06/18/2024 10:05:43 06/24/2024 bone density completed [email or web address] [address] [place], [address], 06/25/2024 08:51:26 Procedure Notes None recorded. Medical Equipment None Reported. Allergies Allergen ID Allergen Name Allergen Category Reaction Reaction Severity Criticality Documentation Date Start Date Code Code System Note Provider Name and Address Organization Details Recorded Time 3152 Product containin g penicilli n (product) medicatio n rash Not available Not available 10/27/2018 04858 8001 SNOMED [facility]ad[facility]er [facility] 9 10:18:39 5324 Macrobid medicatio n nausea moderate Not available 05/11/2021 47601 1 RxNorm DANTE JEAN BAPTISTE [address] [place], [address], [facility] 2 11:13:41 984 amoxicill in medicatio n rash Not available Not available 08/15/2017 723 RxNorm [facility] walker [facility] 8 08:29:49 985 Substance with sulfonami de structure and antibacte rial mechanism of action (substanc e) medicatio n rash Not available Not available 08/15/2017 41060 8003 SNOMED [facility] 8 08:29:59 Medications Name Sig [...] Available [employer] COVID-19 Antigen Home Test kit 01/19 /2024 completed Not Available Not Available Not Available Vitals Date Recorded Body height Body mass index (BMI) Body weight Oxygen saturation Oxygen saturation in Arterial blood by Pulse oximetry Heart rate Systolic blood pressure Diastolic blood pressure Provider Name and Address Organization Details Last Updated DateTime 3 160.66 cm 19 kg/m2 72850.9 8 g 98 % 98 % 62 /min 100 mm[Hg] 60 mm[Hg] Theresa Chicas [facility] 3 13:38:33 Date Recorded Body weight Heart rate Oxygen saturation Oxygen saturation in Arterial blood by Pulse oximetry Systolic blood pressure Diastolic blood pressure Provider Name and Address Organization Details Last Updated DateTime 4 28080.1 8 g 80 /min 98 % 98 % 120 mm[Hg] 70 mm[Hg] Rosa Delgadokes [facility] 4 13:37:17 Date Recorded Body height Body mass index (BMI) Body weight Heart rate Oxygen saturation Oxygen saturation in Arterial blood by Pulse oximetry Systolic blood pressure Diastolic blood pressure Provider Name and Address Organization Details Last Updated DateTime 4 160.66 cm 20.6 kg/m2 77042.3 1 g 83 /min 96 % 96 % 116 mm[Hg] 62 mm[Hg] Hill Jiménez [facility] 4 16:07:16 Date Recorded Body height Body mass index (BMI) Body weight Heart rate Oxygen saturation Oxygen saturation in Arterial blood by Pulse oximetry Systolic blood pressure Diastolic blood pressure Provider Name and Address Organization Details Last Updated DateTime 5 160.02 cm 20.4 kg/m2 87990.1 2 g 84 /min 93 % 93 % 120 mm[Hg] 78 mm[Hg] DANTE JEAN BAPTISTE [address] [place], [address] 5 16:08:35 Social History Question Answer Notes LastModified by Organizat ion Details LastModified Time Tobacco Smoking Status Never Smoker Not Available [facility] 02/29/2020 03:36:24 What Was The Date Of [...] virus, quadrivalent, preservative 1 completed Not Available [facility] 12/11/2022 09:42:48 COVID-19, mRNA, LNP-S, PF, 30 mcg/0.3 mL dose 1 completed Theresa walker MA [facility] 03/05/2021 08:34:14 COVID-19, mRNA, LNP-S, PF, 30 mcg/0.3 mL dose 2 completed Not Available [facility] 12/11/2022 09:42:48 COVID-19, mRNA, LNP-S, PF, 50 mcg/0.5 mL dose 2 completed Not Available [facility] 12/11/2022 09:42:48 zoster recombinant 2 completed Not Available [facility] 12/11/2022 09:42:48 zoster recombinant 2 completed Not Available [facility] 12/11/2022 09:42:48 influenza, unspecified formulation 2 completed Not Available [facility] 12/11/2022 09:42:48 Influenza, split virus, quadrivalent, preservative 9 completed Not Available [facility] 11/08/2020 09:44:49 zoster recombinant 9 completed Not Available [facility] 11/08/2020 09:44:49 Influenza, split virus, quadrivalent, preservative 0 completed Not Available [facility] 11/08/2020 09:44:49 COVID-19, mRNA, LNP-S, PF, 100 mcg/0.5mL dose or 50 mcg/0.25mL dose 1 completed Not Available [facility] 11/08/2020 09:44:49 COVID-19, mRNA, LNP-S, PF, 100 mcg/0.5mL dose or 50 mcg/0.25mL dose completed Not Available [facility] 11/08/2020 09:44:49 Past Encounters Encounter ID Performer Location Encounter Start Date Encounter Closed Date Diagnosis/Indication Diagnosis SNOMED-CT Code Diagnosis ICD10 Code Diagnosis Note [id number] Shirlene Escobar NP, [facility] [address] [place] [address], [place] [address] 08/15/2017 14:21:53 08/15/2017 15:25:04 Bursitis of left shoulder 0747201843 12435 M75.52 [id number] Shirlene Escobar NP, [facility] Internal [address], [place] [address] 09/29/2017 10:05:46 09/29/2017 17:11:03 Streptococcal infectious disease 84405062 A49.1 Cervical lymphadenopathy 855374897 R59.0 Malaise and fatigue 2717 38179 R53.81 f/u in office in 2 days [id number] Shirlene Escobar NP, [facility] Internal [address], [place] [address] 10/01/2017 09:05:44 10/01/2017 10:28:19 Heart murmur 31551974 R01.1 f/u in office 1 week after exam Viral syndrome 702139885 B34.9 symptoms improved work note provided for this week [id number] Shirlene Escobar NP, [facility] Internal [address], [place] [address] 10/27/2017 15:45:49 10/27/2017 16:37:31 Intermittent palpitations 285118754 R00.2 Hypercholesterolemia 136 32561 E78.00 Good RR, continue healthy lifestyle [id number] Shirlene Escobar NP, [facility] Internal [address],[place] [address] 03/31/2018 09:27:19 03/31/2018 10:08:36 Diarrhea 52540129 R19.7 Family problems 71598873 4 Z63.79 discussed [id number] [facility] [address] [facility],[place] [address] 10/27/2018 10:13:36 10/27/2018 11:48:51 Adult health examination 666501077 Z00.00 Active or passive immunization 209849743 Z23 Hypercholesterolemia 136 53760 E78.00 Microscopic hematuria 19 9733948 R31.21 s/p menopause no uti sx Vitamin D deficiency 347 68903 E55.9 Cellulitis 634745290 L03 .90 2/2 wasp or yellow jacket sting [id number] [facility] [address] [facility], [place] [address] 03/07/2020 08:25:47 03/07/2020 15:47:24 Central cord syndrome of cervical spinal cord 243138170 S14.129A doing much better fu as needed Tetraplegia 64946024 G82 .53 doing well able to walk and move with limited assistance of walker [id number] 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 [address] [facility],[place] [facility] [place] [address] 05/31/2020 14:54:50 05/31/2020 16:09:05 Central cord syndrome of cervical spinal cord 559167630 S14.129D long detailed discussion we will havce her see specialist tomorrow a dr zapata plan to increase her baclofen to 10 tid relates having issues with burning sensation and has had issues with this in the leg as well also she wishes to come off the oxycodone only taking this for the burning sensation in her hands and leg Hypercholesterolemia 136 60694 E78.00 will cont to follow and we will repeat lab shortly Lower limb spasticity 39 6645949 M62.838 she is only taking 5 mg tid we will increase to 10mg [id number] [facility] [address] [facility],[place] [facility] [place] [address] 09/27/2020 10:47:56 09/27/2020 11:12:04 Tetraplegia 94624643 G82.54 doing well able to walk and move with limited assistance of walker and even now without one improving and follows with her neuro and PT Peripheral venous insufficiency 11659303 I87.2 will address this at next visit so I can do a proper exam Bite of no nvenomous spider 988740471 W57.XXXS possibly a spider bite will start on short course of doxy [id number] 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 [address] [facility],[place] [address] 12/11/2020 15:45:26 12/11/2020 16:41:59 Active or passive immunization 695642159 Z23 advised Adult [facility] th examination 168456174 Z00.00 needs lab work Hypomagnesemia 195173298 E83.42 will recheck Anemia 415714958 D50.0 will fu with lab work [id number] 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 [address] [facility], [place] [address] 05/07/2021 09:53:25 05/07/2021 16:29:31 Dysuria 09350228 R30.0 will fu with treatment plan [id number] D[address] JE[address] BAPTIST[address] [facility] [address] [facility],[place] [address] 05/11/2021 09:17:34 05/18/2021 10:22:27 Tetraplegia 34909296 G82.54 recent fu, having an MRI with neurosurge ry Dysuria 35413192 R30.0 stop medication except anti-emeti c Nausea 098516020 R11.0 continue as needed if she is nauseous [id number] [facility] [address] [facility], [place] [address] 05/10/2022 13:24:42 05/14/2022 08:36:53 Active or passive immunization 223433469 Z23 advised Adult [facility] th examination 368753035 Z00.00 needs lab work Central co [address] syndrome of cervical spinal cord [id number] S14.129A will adjust to the 10 mg prednisone as needed on top of the 5 mg Screening for osteoporosis 431774485 Z13.820 will set up with bone density screeningn [facility] recheck Kidney stone 08263355 N2 0.0 left kidneyonly has on kidney Aneurysm o f splenic artery [id number] I72.8 seeing cardio for eval since her insurance denied the CTA for it Vitamin D deficiency 347 72096 E55.9 will recheck [id number] DANTE JEAN BAPTISTE [facility] [address] [facility] [address],[place] [address] 05/16/2023 13:27:15 05/16/2023 15:25:23 Constipation 97053228 K59.01 will try first with linzess, would like to try motegrity at the end Aneurysm o f spinal artery 1239410 I72.8 stable 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 796489955 G82.54 improving Adult heal th examination 579180924 Z00.00 needs lab workfor routine stuff Hyperlipidemia 26516698 E78.01 will recheck lipid levels Family his tory of breast cancer 804524879 Z80.3 found mutation her daughter haswill check for this Vesicular hand eczema 40 9015004 L30.8 will start on clobetasol to see if alleviates her symptoms [id number] DANTE JEAN BAPTISTE [facility] [address],[place] [address] 08/19/2023 15:57:08 08/20/2023 08:22:19 Allergic rhinitis 50640967 J30.1 agreed to trying flonase and will use debrox on the Impacted c erumen in right ear [id number] 047984 H61.21 will use debrox [id number] DANTE JEAN BAPTISTE [facility] Internal [facility] [address] [facility] [address] [address] 05/19/2024 15:52:54 05/21/2024 08:08:28 Active or passive immunization 863903100 Z23 advised Adult heal th examination 999553764 Z00.00 BP is excellent Heterogene ously dense breast composition 635599667 R92.2 suggested MRI Dupuytren' s contracture of finger 783213667 M72.0 bilaterall y, seeing hand specialist , does not need surgery at this time Osteoporosis 30489551 M8 1.0 will set up bone density, due for two year checkhas only been doing the calcium and vit d due to intoleranc e of the alendronat e Hyperlipidemia 83188766 E78.01 will recheck lipid levels Health Concerns Section Related Observation LastModified by Organization Zahra anthony LastModified Time None Recorded Concern Status LastModified by Organization Details LastModified Time None Recorded Advance Directives Directive None Recorded Payers Encounter Date Sequence Insurance Name Policy Number Policy Dennis Covered Member ID Dennis Member ID Guarantor Name 05/11/2021 1 [facility] [id number] Vincent Cuevas [id number] Vincent Cuevas 05/10/2022 1 [facility] [id number] Vincent Cuevas [id number] Vincent Cuevas 05/16/2023 1 [facility] [id number] Vincent Cuevas [id number] Vincent Cuevas 08/19/2023 1 [facility] [id number] Vincent Cuevas [id number] Vincent Cuevas 05/19/2024 1 [facility] [id number] Vincent Cuevas [id number] Vincent Cuevas Notes Date Note Type Note [...] effectswill stoponly continue anti-emetic DANTE JEAN BAPTISTE [address] [place] [address], [place], [address], [facility] 05/11/2021 11:35:03 3 text/html Annual WellnessReported bypatient.Diet and Nutrition:healthy diet; discussed vitamin and supplement use; discussed portion control; discussed maintaining calcium balance; discussed diet improvement Physical Activity:exercises on a regular basis; recent increase in physical activity; good physical condition; discussed weightbearing activities; discussed exercise habits; does yoga walks does chair yoga at [facility] in [place] Additional Lifestyle Factors:no tobacco use; no alcohol [...] using a transport service DANTE JEAN BAPTISTE [address] [place] [address], [place], [address], [facility] 05/10/2022 14:28:42 4 text/html [...] the severe constipation DANTE JEAN BAPTISTE [address] [place], [address], [facility] 05/16/2023 14:20:27 4 text/html [...] otherwise doing well DANTE JEAN BAPTISTE [address] [place], [address], [facility] 08/19/2023 16:28:55 5 text/html [...] away night-time dose DANTE JEAN BAPTISTE [address] [facility], [place], [address], [facility] 05/19/2024 16:59:49 OBGyn Episode No OBEpisode recorded.
[2024-07-17 12:49] LABS: Alanine Aminotransferase 35 U/L (0-31); Albumin Level 4.1 g/dL (3.5-5.0); Alkaline Phosphatase 52 U/L (39-117); Aspartate Amino Transferase 28 U/L (5-31); Bilirubin Direct 0.1 mg/dL (0.0-0.5); Bilirubin Total 0.5 mg/dL (0.0-1.0); Total Protein 6.9 g/dL (6.5-8.0)
[2024-07-17 13:03] LABS: Vitamin D 25-OH Total 45.9 ng/mL (>30)
== END 2024-07-17 09:48 | disposition home or self-care (01) ==
LOC: HO.HMGCLDS 09:47
PROVIDERS: PCP Physician Assistant; Visit Provider Physician Assistant
DX: R94.5 Abnormal results of liver function studies (principal); E55.9 Vitamin D deficiency, unspecified
CPT/HCPCS: 36415; 80076; 82306

== ENCOUNTER 2024-12-25 08:56 | Outpatient (REF) | payer OTHER, SELFPAY ==
--- OUTSIDE RECORDS SUMMARY | 2024-12-25 08:59 | XMS_ITS | Clinical Summary ---
Author Organization [address] [facility] Address [address] [place] [address] Phone Care Team Providers Care Applications Processor Name Role Phone Berry Robles DO Primary Care Provider [phone] Social History Tobacco Use Types Packs/Day Years [...] 02/23/2024 2:47 PM EDT Plan of Treatment Health Maintenance Due Date Last Done Comments Breast Cancer Screening 1960 DTaP,Tdap,and Td Vaccines (1 - Tdap) 1978 Cervical Cancer Screening: P ap Smear 01/19/1980 Pneumococcal Vaccine: 50+ Ye ars (1 of 1 - PCV) 2009 Zoster Vaccines (1 of 2) 2009 COVID-19 Vaccine ( - 2023-2 5 season) 2023 Colorectal Cancer Screening: Colonoscopy 02/20/2024 Falls Risk Assessment 02/20/2024 Hepatitis C Screening 02/20/2024 Osteoporosis Screening (Bone Density Screening) 02/20/2024 Social Influencers of Health Screening 02/20/2024 Depression Screening 04/28/2024 Influenza Vaccine (#1) 2024 RSV Immunization Adult Patie nts (1 - 1-dose 75+ series) 2034 HIB [...] age to complete this topic Meningococcal B Vaccine Aged Out No l onger eligible based on patient's age to complete this topic RSV Immunization Patients Un riddhi 20 months Aged Out No longer eligible b ased on patient's age to complete this topic Varicella Vaccines Aged Out No longer eligible based on patient's [place] [id number] MEDICARE [facility] [place] [id number] Advance Directives Documents on File Type Date Recorded 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
[2024-12-25 11:18] LABS: Cholesterol 201 mg/dL (<200); HDL Cholesterol 77 mg/dL (>40); Triglycerides 65 mg/dL (<150)
[2024-12-26 11:07] LABS: Alanine Aminotransferase 43 U/L (0-31); Albumin Level 4.6 g/dL (3.5-5.0); Alkaline Phosphatase 54 U/L (39-117); Anion Gap 17 (12-20); Aspartate Amino Transferase 30 U/L (5-31); Blood Urea Nitrogen 16 mg/dL (9-16); Calcium 9.1 mg/dL (8.4-10.2); Carbon Dioxide 26 mmol/L (22-29); Chloride 104 mmol/L (96-108); Estimated Glomerular Filt Rate > 60; Potassium 4.8 mmol/L (3.3-5.1); Sodium 142 mmol/L (135-145); Total Protein 6.6 g/dL (6.5-8.0)
== END 2024-12-25 08:57 | disposition home or self-care (01) ==
LOC: HO.HMGCLDS 08:56
PROVIDERS: PCP Physician Assistant; Visit Provider Physician Assistant
DX: E78.00 Pure hypercholesterolemia, unspecified (principal)
CPT/HCPCS: 36415; 80053; 80061

== ENCOUNTER 2025-02-24 15:36 | Outpatient (REF) | payer OTHER, SELFPAY ==
--- NOTE | ~2025-02-24 | XR_ITS ---
EXAMINATION: XR CERVICAL SPINE 2-3 VIEWS HISTORY: NECK PAIN, S/P FALL. COMPARISON: Comparison is made with the prior examination dated 09/24/2017. FINDINGS: AP, lateral, and open-mouth odontoid views of the cervical spine are submitted. Osseous mineralization is normal. The patient is status post anterior fusion of C4-C6 with plate and screws and intervertebral spacers. The hardware is intact. Neural bodies maintain normal height. There is no evidence of fracture of subluxation. There is moderate degenerative disc disease at the C6-7 level with disc space narrowing and osteophyte formation. Findings have progressed since the prior study. The odontoid and lateral masses of C1 are intact. There is no prevertebral soft tissue swelling. XR/XR cervical spine 3V IMPRESSION: Status post anterior fusion of C4-C6. Moderate degenerative disc disease at C6-7. No evidence of fracture or subluxation. Electronically signed by: Ubaldo Holley MD 02/24/2025 03:57 PM EDT
--- OUTSIDE RECORDS SUMMARY | 2025-02-24 18:03 | XMS_ITS | Patient Health Record ---
Author Organization [facility] Address [address] [place] [address] Care Team Providers Care Vegetable Farmworker Name Role Phone Travis MOCK, Berry Primary Care Provider iAlyn Fowler Unavailable [phone] Allergies Allergen (clinical drug ingredient) Drug/Non Drug Allergy documented on EMR Reaction Allergy Type Onset Date Status amoxicillin Amoxicillin rash Drug Allergy Act raymond sulfamethoxazole / trimethoprim Bactrim rash Drug Allergy Active Reason For Referral No Information Social History Tobacco Use: Social History Observation Description Date Details (start date - stop date) Never Smoker NA - NA Tobacco Use/Smoking Question Answer Notes Are you a: nonsmoker Alcohol Screen Question Answer Notes Did you have a drink containing alcohol in the p ast year? 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 Plan Of Treatment Pending Test Test Name Order Date X ray : Foot, right 3V 06/09/2019 Insurance Providers Payer Name Payer Address Payer Phone Subscriber Number Group Number Insured Name Patient Relationship to Insured Coverage Start Date Coverage End Date [facility] [address] [facility] [address] [phone] [id number] CuevasPriscila klein Self - patient is the insured Medical (General) History Medical History History ICD Code Back,Hip,and Knee pain Chicken pox Osteopenia Headaches/Migraines Warts One Kidney Surgical History Surgery Date(Month/Year) partial hysterectomy 1995
--- OUTSIDE RECORDS SUMMARY | 2025-02-24 18:04 | XMS_ITS | Encounter Summary ---
Author Organization [facility] Address [address] [facility] [address] [place] [phone] Phone Care Team Providers Care Satellite Communications Engineer Name Role Phone Kelly Byrd Primary Care Provider Encounter Details Date Type Department Care Team (Late st Contact Info) Description 10/01/2022 Procedure Pass [facility], Ct Scan - [address] [address] Social History Tobacco Use Types Packs/Day Years Used Date Smoking Tobacco: Never Assessed Education Answer Date Recorded Are you interested in more education? Not on joel e 08/24/2022 Are you concerned about learning? Not on file 08/24/2022 No 08/24/2022 No 08/24/2022 Digital Access Answer Date Recorded No 09/17/2022 No 09/17/2022 Reliable internet access at home? Not on file 09/17/2022 Device with a working camera? Not on file Comments Unknown Sex and Gender Information Value Date Recorded Sex Assigned at Not on file Legal Sex Female 4:01 PM EDT Gender Identity Not on file Sexual Orientation Not on file documented as of this encounter Plan of Treatment Upcoming Encounters Date Type Department Care Team (Late st Contact Info) Description 03/07/2025 12:30 PM EST Office Visit [facility] [address], [address] [place] [address] Will Dawson, [address] [facility] [address] [place] [address] documented as of this encounter Visit Diagnoses Not on filedocumented in this encounter Care Teams Satellite Communications Engineer Relationship Specialty Start Date End Date Kelly Byrd PA [address] [facility] [place] [address] PCP - General 10/25/20 documented as of this encounter Additional Source Comments The information contained in this document represents components of the legal health record. It is not the complete legal health record.[facility]
--- OUTSIDE RECORDS SUMMARY | 2025-02-24 18:04 | XMS_ITS | Clinical Summary ---
Author Organization [facility] Address [address] [place] [address] Phone Care Team Providers Care Cad Specialist Name Role Phone Berry Robles DO Primary Care Provider Social History Tobacco Use Types Packs/Day Years [...] Last Done Comments Breast Cancer Screening 1960 Colorectal Cancer Screening: Colonoscopy 1959 DTaP,Tdap,and Td Vaccines (1 - Tdap) 1978 Pneumococcal Vaccine: 50+ Ye ars (1 of 1 - PCV) 2009 Zoster Vaccines (1 of 2) 2009 Falls Risk Assessment 02/20/2024 Hepatitis C Screening 02/20/2024 Osteoporosis Screening (Bone Density Screening) 02/20/2024 Social Influencers of Health Screening 02/20/2024 Depression Screening 04/28/2024 COVID-19 Vaccine (1 - 2023-2 5 season) 2024 Influenza Vaccine (#1) 2024 RSV Immunization Adult [...] patient[place] [id number] MEDICARE [facility] [place] [id number] Advance Directives Documents on File Type Date Recorded Patient Client Success Specialist Expl anation Health Care Decision (hx) 02/12/2020 YOVANI GARCIA DIRECTIVE Care Teams Cad Specialist Relationship Specialty Start Date End Date Berry Robles DO [address] [facility] [address] [place], [place] PCP - General 01/29/24
--- OUTSIDE RECORDS SUMMARY | 2025-02-24 18:04 | XMS_ITS | Clinical Summary ---
Author Organization [facility] Address [address] [place] [phone] Phone Care Team Providers Care Handbag Frames Inspector Name Role Phone Kelly Byrd Primary Care Provider [phone] Allergies Active Allergy Reactions Criticality Noted Date Comments Penicillins 12/26/2020 Sulfa (Sulfonamide Antibiotics) 11/28 Medications baclofen (LIORESAL) 20 MG tablet Take 80 mg by mouth daily. Active alendronate (FOSAMAX) 35 MG tablet Take 35 mg by mouth once a week. Take in the morning with a full glass of water, on an empty stomach, and do not take anything else by mouth or lie down for the next 30 min. Active tiZANidine (ZANAFLEX) 4 MG capsule Take 4 mg by mouth 4 (four) times a day. Active amitriptyline (ELAVIL) 100 MG tablet Take 100 mg by mouth nightly at bedtime. Active NUCYNTA ER 50 mg Tb12 Take 50 mg by mouth 3 (three) times a day. Active colchicine (COLCRYS) 0.6 mg tablet Take 0.6 mg by mouth daily. 01/21/2024 Active rosuvastatin (CRESTOR) 10 MG tablet Take 10 mg by mouth daily. Active miSOPROStoL (CYTOTEC) 100 mcg tablet take 1 tablet by mouth three times a day as needed for 30 days 08/25/2024 Active aspirin 81 mg chewable tablet 04/28/2023 Act raymond Active Problems Problem Noted Date Diagnosed Date Other hyperlipidemia 01/26/2024 Assessment & Plan (09/02/2024 2:30 PM EDT): She has begun on rosuvastatin 10 mg daily prescribed by PCP office and is tolerating this well so far. She did have a slight bump in her LFTs which we reviewed which are mildly improved on repeat, scanned into media. Patient plans to have lipids/LFTs around December through PCP office, recommend uptitration of Crestor if LFTs acceptable for goal less than 70. Assessment & Plan (05/20/2024 4:52 PM EST): Recent LDL 175 through labs at PCP 12/2023. She has begun on rosuvastatin 10 mg daily prescribed by PCP office and is tolerating this well so far. Patient will have labs drawn at 6-month selin through PCP. Uptitrate statin as needed. Can have sent to us. Assessment & Plan (01/26/2024 5:24 PM EDT): Recent LDL 175 through labs at PCP 12/2023. She has begun on rosuvastatin 10 mg daily prescribed by PCP office and is tolerating this well so far. Patient will have labs drawn at 6-month selin through PCP. Uptitrate statin as needed. Can have sent to us. Family history of early CAD 01/26/2024 Assessment & Plan (09/02/2024 2:31 PM EDT): New known family history in patient's father of coronary artery disease. Has recently been started on a statin, see above. Blood pressure is very well-controlled. Does not smoke, exercises regularly. Continue to optimize cardiovascular risk factors. She has had a previous coronary calcium score 06/2022 which resulted at 97. She is on a baby aspirin. Patient is asymptomatic without any exertional or rest symptoms. Assessment & Plan (05/20/2024 4:52 PM EST): New known family history in patient's father of coronary artery disease. Has recently been started on a statin. Blood pressure is very well-controlled. Does not smoke, exercises regularly. Continue to optimize cardiovascular risk factors. She has had a previous coronary calcium score 06/2022 which resulted at 97. Patient is asymptomatic without any exertional or rest symptoms. Assessment & Plan (01/26/2024 5:26 PM EDT): New known family history in patient's father of coronary artery disease. Has recently been started on a statin. Blood pressure is very well-controlled. Does not smoke, exercises regularly. Continue to optimize cardiovascular risk factors. She has had a previous coronary calcium score 06/2022 which resulted at 97. Patient is asymptomatic without any exertional or rest symptoms. Splenic artery aneurysm 10/01/2022 Assessment & Plan (09/02/2024 2:32 PM EDT): Previous CTA shows a 13 mm distal splenic artery aneurysm. Per previous discussion with Dr Dawson- No concern if/until > 30 mm. She did have more recent CT at [facility] 02/2024 -aneurysm 1.6 cm. Continue to follow with serial imaging. Follow-up in 6 months Assessment & Plan (05/20/2024 4:51 PM EST): Previous CTA shows a 13 mm distal splenic artery aneurysm. Per previous discussion with Dr Dawson- No concern if/until > 30 mm. Patient was recommended repeat CTA 1 year, but this was denied by insurance, so ultrasound was obtained 12/2023, however, splenic artery aneurysm was poorly visualized. Today patient states that she did have more recent CT at [facility] 02/2024 and believes the aneurysm to be 1.6 cm. I do not have this report to review so we will request this. Upon receipt, will reach out to patient with any concerning finding. Follow-up in 6 months. Assessment & Plan (01/26/2024 5:22 PM EDT): Previous CTA shows a 13 mm distal splenic artery aneurysm. Per previous discussion with Dr Dawson- No concern if/until > 30 mm. Patient was recommended repeat CTA this year, but this was denied by insurance, so ultrasound was obtained 12/2023, however, splenic artery aneurysm was poorly visualized. I have therefore reordered CTA. Patient will schedule follow-up once this is completed. Assessment & Plan (12/03/2022 7:41 AM EDT): We reviewed her CTA, showing a 13 mm distal splenic artery aneurysm. Reviewed with Dr Dawson. No concern if/until > 30 mm. Will repeat CTA in one year in surveillance and see her in follow up thereafter. Of note, her CTA also showed a markedly atrophic right kidney. She tells me that this was noted and worked up back in the when she was undergoing work up for a hysterectomy. No further imaging required. Assessment & Plan (10/01/2022 8:25 AM EDT): She has had two scans which raised question of splenic artery aneurysm. In addition, she had a renal artery duplex scan on 09/18 (see above) which was essentially indeterminate in regard to splenic artery aneurysm. Reviewed with Dr Dawson. Will order CTA for more definitive visualization and follow up thereafter. Will also follow up re: obtaining records from [facility]. Varicose veins of bilateral lower extremities with other complications 12/26/2020 Assessment & Plan (05/21/2022 9:44 AM EST): No real pathology in the venous or arterial system of the lower extremities we are going to order her a mesenteric artery duplex and tried to visualize the splenic artery and mesenteric arteries to get a good measurement Assessment & Plan (11/05/2021 3:30 PM EDT): Due to her ongoing temperature discrepancies between her right and left legs with a burning sensation in her feet we opted to check her ABIs and arterial duplex study just to rule out any arterial reasons for her symptoms. These were unremarkable and are not contributing overall to her symptoms. Is likely related to her spinal cord injury and neuropathy. It would be best that she follow-up on an as-needed basis and check back with her physiology Dr. To see if there is anything else that can be helped for management of her symptoms. Assessment & Plan (09/03/2021 1:06 PM EDT): Lower extremity venous 01/30/2021 showed right GSV is incompetent, otherwise unremarkable, please see full report for details. Veins noted to be small in diameter. Denies leg weakness, cramping, fatigue. She does report significant neuropathy with burning sensation to her feet in addition to coolness to her right leg with temperature discrepancies from her right and left legs. Her venous insufficiency does not really contribute to her symptoms. We have not done ABIs or arterial duplex study which we will obtain just to rule out any arterial reason for her symptoms. I do suspect this is more likely related to her spinal cord injury and neuropathy. We will see her in follow-up after the test have been completed. Assessment & Plan (02/13/2021 5:26 PM EDT): Patient had a recent ultrasound showing right GSV is incompetent. Would recommend conservative management with elevation and compression stockings. Exam was unremarkable today and she is not endorsing any edema or achiness. We did discuss her symptom of her lower extremities feeling cool and we did discuss the appropriateness of an arterial ultrasound and or an echocardiogram, further work-up, at this time, patient is leaving for [place] for the winter and she would like to see how her symptoms are over the next few months before proceeding with any more testing, her pulses were not diminished today, there were no skin changes, exam ultimately unremarkable so I think this is an agreeable plan. We will see her in the spring. Assessment & Plan (12/26/2020 1:40 PM EDT): As mentioned we will order a reflux study not a DVT study as this patient does not have symptoms of DVT we will see her in the office after that Spinal cord injury at C1-C4 level 12/26/2020 Assessment & Plan (05/21/2022 9:44 AM EST): No real changes Assessment & Plan (12/26/2020 1:40 PM EDT): This happened about a year ago and she is trying to deal with it the best she can Neuropathy 12/26/2020 Assessment & Plan (05/21/2022 9:44 AM EST): Present but symptoms are stable Assessment & Plan (12/26/2020 1:41 PM EDT): Probably stemming from the spinal cord injury Encounters Date Type Department Care Team Description 01/07/2025 Orders Only [facility] [address], [address] [place] [address] Karen Villeda, MANGO Mixed hyperlipidemia (Primary Dx) 01/07/2025 Telephone [facility] [address], [address] [place] [address] Alison Rahman 01/03/2025 Orders Only [facility] [address], [address] [place] [address] ProviderRolan MD 12/29/2024 Telephone [facility] [address], [address] [place], [place] [id number] Will Dawson DO from Last 3 Months Immunizations Immunization Administration Dates Next Due COVID-19 (Pre-02/17) Moderna Vaccine, mRNA, PF 0 08/17/2020,07/26/2020 COVID-19 (Pre-02/17) Pfizer Vaccine, mRNA, PF Influenza Quadrivalent w/ Preservative IM 2019,03/01/2019 Zoster recombinant 03/16/2019 Social History Tobacco Use Types Packs/Day Years [...] Sign Reading Time Taken Comments Blood Pressure 104/62 09/01/2024 2:30 PM EDT Pulse 78 09/01/2024 2:30 PM EDT Temperature - - Respiratory Rate - - Oxygen Saturation 97% 01/26/2024 4:19 PM EDT Inhaled Oxygen Concentration - - Weight 53.1 kg (117 lb) 09/01/2024 2:30 PM EDT Height 160 cm (5' 2.99 ) 09/01/2024 2:30 PM EDT Body Mass Index 20.73 09/01/2024 2:30 PM EDT Plan of Treatment Upcoming Encounters Date Type Department Care Team (Late st Contact Info) Description 03/07/2025 12:30 PM EST Office Visit [facility] [address] [facility] [address], [address] [place] [address] Will Dawson DO [address] [facility] [address] [place] [id number] [email or web address] Maintenance Due Date Last Done Comments Adult Td,Tdap Booster 1959 LIPID PANEL 1959 DEPRESSION SCREENING 1971 SMOKING Hx and SMOKELESS TOBACCO SCREENING 01/19/1972 HEPATITIS C SCREENING 1977 MAMMOGRAM 1999 COLOGUARD 01/19/2004 COLONOSCOPY 01/19/2004 COLORECTAL CANCER SCREENING 01/19/2004 FIT TEST 01/19/2004 FOBT 01/19/2004 SIGMOIDOSCOPY 01/19/2004 VIRTUAL COLONOSCOPY 01/19/2004 PNEUMOCOCCAL VACCINES (50+ years) (1 of 1 - PCV) 2009 OSTEOPOROSIS SCREENING INITIAL (ONE-TIME) 01/19/2024 INFLUENZA VACCINE (#1) 2024 , 02/11/2021, 02/01/2020, Additional history exists COVID-19 VACCINE ( season) 2024 02/20/2022, 12/04/2021, 03/01/2021, Additional history exists RSV VACCINE (1 - 1-dose 75+ series) 2034 ZOSTER VACCINES Completed 04/14/2022, 080 12/2021, 03/16/2019 HEPATITIS A VACCINES Aged Out No long er eligible based on patient's age to complete this topic HIB VACCINES Aged Out No longer eligi ble based on patient's age to complete this topic MENINGOCOCCAL VACCINES (ACWY) Aged Out No longer eligible based on patient's age to complete this topic MENINGOCOCCAL VACCINES (B) Aged Out N o longer eligible based on patient's age to complete this topic Medical Devices Not on file Procedures Procedure Name Priority Date/Time Associated Diagnosis Comments OUTSIDE LAB Routine 12/25/2024 3:00 PM EDT from Last 3 Months Results * Outside Lab (12/25/2024 3:00 PM EDT) Historical Provider LAB BLOOD ORDERABLES Dulce Maria l Result from Last [address] [place], [place] [id number] [place] [address] [place] [place] [address] [place] [address] [place] [address] [place] [address] [facility] [place] [address] [facility] [place] [place] [address] [facility] [place] Address: [address] [address] Care Teams Handbag Frames Inspector Relationship Specialty Start Date End Date Kelly Byrd PA [address] [facility] [place] [address] PCP - General 10/25/20 Additional Source Comments The information contained in this document represents components of the legal health record. It is not the complete legal health record.[facility]
--- OUTSIDE RECORDS SUMMARY | 2025-02-24 18:04 | XMS_ITS | Data Portability ---
Author Organization [facility], Telehealth Patient Home Address [address] [place] [address] Assessment No assessment recorded. Plan of Treatment Reminders Order Date Submit Date Provider Last Modified By Organization Details Last Modified Time Details Appointments ANNUAL EXAM 2025 03:45P DANTE BONILLA Not available Not available Not available Lab lipoprote in-associ ated phospholi pase A2 (pla2), serum 2024 025 [facility], [address] [place] [address], [address], 05/19/2024 16:44:01 lipid panel, serum 2024 025 [facility], [address] [place] [address], [place], [address], 05/19/2024 16:44:01 CMP, serum or plasma 2024 025 [facility], [address] [place] [address], [place], [address], 06/08/2024 13:09:10 CBC w/ auto diff 2024 025 [facility], [address] [place] [address], [address], 05/19/2024 16:44:01 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, blood or tissue - blood test 2023 024 [email or web address] [facility] (Centralized Electronic Ordering - All Locations), Patient Can Go To The Location Of Their Choice, [address] 05/16/2023 14:07:50 apolipopr otein A-I + A-II + B + C panel, QN, serum or plasma 2023 024 [facility], [address] [place] [address], [place], [address], 05/16/2023 14:08:54 lipid panel, serum 2023 024 [facility], [address] [place] [address], [address], 06/02/2023 17:22:17 CMP, serum or plasma 2023 024 [facility], [address] [place] [address], [address], 06/02/2023 17:22:17 CBC w/ auto diff 2023 024 [facility], [address] [place] [address], [address], 06/02/2023 17:22:17 vitamin D, 25-hydrox y, total, serum 2022 023 [facility], [facility] [place] [address], [address], 05/10/2022 15:11:53 hepatic function panel, serum 2022 023 [facility], [facility] [place], [address], 05/10/2022 15:11:53 CMP, serum or plasma 2022 023 [facility], [address] [place] [address] [place], [address], 05/10/2022 15:11:53 CBC w/ auto diff 2022 023 [facility], [address] [place] [address] [place], [address], 05/10/2022 15:11:53 lipid panel, blood 2022 023 [facility], [address] [place] [address] [place], [address], 05/10/2022 15:11:53 Referral None recorded. Procedures None recorded. Surgeries None recorded. Imaging XR, cervical spine, 2 or 3 view 2024 025 [facility] (Imaging), [address] [facility] [place], [address], 02/24/2025 16:02:20 bone density 2024 025 [facility] Central Scheduling, [address] [place], [address], 05/25/2024 08:22:02 MRI, breast, bilateral , w/wo contrast - dense breast tissue, sig family hx of breast cancer, MM cannot fully access for malignanc y MM cannot fully access for malignanc y 2024 025 [facility] [place], [address] [place] [address] [place], [address], 05/28/2024 10:28:27 bone density - due for repeat bone scan 2022 023 [facility] Central Scheduling, [address] [place], [address], 05/24/2022 10:39:28 Medication Orders fluticaso ne propionat e 50 mcg/actua tion nasal spray,barbara pension 2023 024 [facility]/Pharmacy #[id number], [address] [facility] [place], [address], 08/19/2023 16:21:31 Linzess 72 mcg capsule 2023 024 [facility]/Pharmacy #[id number], [address] [facility] [place], [address], 06/09/2023 10:51:01 clobetaso l 0.05 % topical cream 2023 024 VÍCTOR [facility]/Pharmacy #[id number], [address] [place], [address], 05/16/2023 14:14:28 prednison e 10 mg tablet 2022 023 [email or web address] [facility]/Pharmacy #[id number], [address] [place], [address], 05/16/2023 13:33:57 Patient TargetsNo targets recorded. Patient InstructionsNo instructions recorded. Reason for Referral None Reported. Results Created Date Observation Date Name Description Value Unit Range Abnormal Flag Note LastModifiedBy Organization Detail LastModifiedTime 05/30/1905/30/2022 bone densi ty No observ ation record ed. [facility] Central Scheduling [address] [place], [address], 05/31/2022 09:41:01 07/30/19 23 07/26/2022 CT, coron pal calci um score No observ ation record ed. [email or web address] [place] [address] [facility] [address] [place], [address], 07/30/2022 09:12:07 09/25/19 23 09/18/2022 imagi ng/di agnos tic resul t No observ ation record ed. [facility] [address] , [place], [address], 09/24/2022 12:10:16 03/23/20 23 03/03/2023 MAMMO , anita engel, digit al, bilat eral No observ ation record ed. [email or web address] [facility] [address] [place], [address], 03/24/2023 08:36:35 01/20/20 24 01/16/2024 US, duple x, renal arter y No observ ation record ed. [facility] [address] [facility], [place], [address], 01/20/2024 08:48:28 04/01/20 24 03/31/2024 CT, abdom en + pelvi s, w/o contr ast No observ ation record ed. [email or web address] [facility] [address] [address], [place], [address], 04/02/2024 12:09:00 04/28/19 25 04/16/2024 MAMMO , scree toro, digit al, bilat eral No observ ation record ed. [email or web address] [address] [place], [address], 04/28/2024 19:00:16 06/18/19 25 06/18/2024 US, breas t, bilat eral, compl ete No observ ation record ed. [address] [place], [address], 06/18/2024 10:05:43 06/24/19 25 06/24/2024 bone densi ty No observ ation record ed. [address] [place], [address], 06/25/2024 08:51:26 02/25/20 25 02/24/2025 XR, cervi danny spine , 2 or 3 view No observ ation record ed. [facility] [place], [address], 02/24/2025 16:02:20 Result Notes None recorded. Problems Name Problem SNOMED Code Status Onset Date Resolution Date Notes Provider Name and Address Organization Details Recorded Time Hypercho lesterol emia 10501815 Active 2017 DANTE Campos [address] [place], [address], [facility] 5 08:29:47 Hypermet ropia 40850727 Active 2018 Not Available [facility] 2 10:18:57 Myopia 35366590 Active 2018 Not Available [facility] 2 10:18:57 Central cord syndrome of cervical spinal cord 248663737 Active 2019 Not Available [facility] 2 10:18:57 Tetraple tali 88477137 Active 2019 incomplet e C5-C7 Not Available [facility] 2 10:18:57 Osteopor osis 31017398 Active 2020 Not Available [facility] 2 10:18:57 Dysuria 42487045 Active 2021 Not Available [facility] 2 10:18:57 Aneurysm of splenic artery 75377690 Active 2021 DANTE JEAN BAPTISTE [address] [place], [address], [facility] 2 09:13:53 Injectio n site inflamma tion 70635190 Active 2021 DANTE JEAN BAPTISTE [address] [place], [address], [facility] 2 11:47:32 Kidney stone 01377972 Active 2022 DANTE JEAN BAPTISTE [address] [place], [address], [facility] 3 14:21:48 Vitamin D deficien cy 80441407 Active 2022 DANTE JEAN BAPTISTE [address] [place], [address], [facility] 3 14:24:02 Osteopen ia 519003284 Active 2022 DANTE JEAN BAPTISTE [address] [place], [address], [facility] 3 14:11:03 Hyperlip idemia 50738053 Active 2022 DANTE JEAN BAPTISTE [address] [place], [address], [facility] 3 15:42:47 Constipa tion 67425379 Active 2023 DANTE JEAN BAPTISTE [address] [place], [address], [facility] 4 13:52:05 Aneurysm of spinal artery 2909497 Active 2023 DANTE JEAN BAPTISTE [address] [place], [address], [facility] 4 14:09:15 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 496296717 Active 2023 DANTE JEAN BAPTISTE [address] [place], [address], [facility] 4 14:09:16 Vesicula r eczema of hand 815452697 Active 2023 DANTE JEAN BAPTISTE [address] [place], [address], [facility] 4 14:14:11 Chronic constipa tion 294994676 Active 2023 DANTE JEAN BAPTISTE [address] [place], [address], [facility] 4 14:49:18 Allergic rhinitis 25199646 Active 2023 DANTE JEAN BAPTISTE [address] [place], [address], [facility] 4 16:20:03 Impacted cerumen in right ear 68805038570 383[address] Active 2023 DANTE JEAN BAPTISTE [address] [place], [address], [facility] 4 16:25:00 Tinnitus 61094028 Active 2023 DANTE JEAN BAPTISTE [address] [place], [address], [facility] 4 08:55:40 Pelvic floor dysfunct ion 236169819 Active 2023 DANTE JEAN BAPTISTE [address] [place], [address], [facility] 4 12:08:29 Heteroge neously dense breast composit ion 679554345 Active 2024 DANTE JEAN BAPTISTE [address] [place], [address], [facility] 5 16:22:45 Duplety reyes's contract ure of finger 354276444 Active 2024 DANTE JEAN BAPTISTE [address] [place], [address], [facility] 5 16:33:31 Liver function tests outside referenc e range 364979904 Active 2024 DANTE JEAN BAPTISTE [address] [place], [address], [facility] 5 09:34:38 Slow transit constipa tion 62160569 Active 2024 DANTE JEAN BAPTISTE [address] [place], [address], [facility] 5 08:43:55 Urinary tract infectio us disease 54641779 Active 2024 DANTE JEAN BAPTISTE [address] [place], [address], [facility] 5 12:05:58 Injury of head 64399215 Active 2024 DANTE JEAN BAPTISTE [address] [place] [address], [address], [facility] 5 14:30:17 Scalp lacerati on 955673354 Active 2024 DANTE JEAN BAPTISTE [address] [place], [address], [facility] 5 14:30:38 Notes:only has the left kidn ey Problem Notes None recorded. Medical Equipment None Reported. Allergies Allergen ID Allergen Name Allergen Category Reaction Reaction Severity Criticality Documentation Date Start Date Code Code System Note Provider Name and Address Organization Details Recorded Time 3152 Product containin g penicilli n (product) medicatio n rash Not available Not available 10/27/2018 57890 8001 SNOMED Bernadette walker [facility] 9 10:18:39 5324 Macrobid medicatio n nausea moderate Not available 05/11/2021 29453 1 RxNorm DANTE JEAN BAPTISTE [address] [place], [address], [facility] 2 11:13:41 984 amoxicill in medicatio n rash Not available Not available 08/15/2017 723 [facility] 08:[facility]49 985 Substance with sulfonami de structure and antibacte rial mechanism of action (substanc e) medicatio n rash Not available Not available 08/15/2017 40810 8003 SNOMED [facility] 08:29:59 Medications Name Sig Start Date [...] completed Not Available Not Available Not Available cefpodoxi me 200 mg tablet TAKE 1 TABLET BY MOUTH EVERY 12 HOURS FOR 7 DAYS active Not Available Not Available No t Available amitripty line 75 mg tablet TAKE [...] TABLET BY MOUTH FOUR TIMES A DAY active Not Available Not [...] completed Not Available Not Available Not Available lorazepam 1 mg tablet PLEASE SEE ATTACHED FOR DETAILED DIRECTIO NS active Not Available Not Available No t Available ibuprofen 600 mg tablet TAKE 1 TABLET BY MOUTH 4 TIMES A DAY 05/16 completed Not Available Not Available Not Available levofloxa gonzales 500 mg tablet 08/15 completed Not Available Not Available Not Available colchicin e 0.6 mg tablet TAKE 1 TABLET BY MOUTH EVERY DAY DIRECTED 05/19 completed Not Available Not Available Not Available ketoconaz ole 2 % topical cream APPLY TWICE A DAY TO AFFECTED AREAS OF FACE AND EARS FOR MAINTENA NCE active Not Available Not Available No t Available oxybutyni n chloride 5 mg tablet Take 1 tablet twice a day by oral route for 90 days. 08/04 completed Not Available Not Available Not Available clobetaso l 0.05 % scalp solution APPLY TOPICALL Y TO SCALP 2 TIMES A WEEK NEEDED. active Not Available Not Available No t Available fluticaso ne propionat e 50 mcg/actua [...] amitripty line 100 mg tablet TAKE 1 BY MOUTH EVERY NIGHT AT BEDTIME, EKG MONITORE D YEARLY active Not Available Not Available No t Available doxycycli ne hyclate 100 mg tablet TAKE 1 TABLET BY MOUTH TWICE A DAY DAY OF INJECTIO N active Not Available Not Available No t Available naproxen 500 mg tablet 08/15 completed Not Available Not Available Not Available Dulcolax (bisacody l) 5 mg tablet,de layed release Take 1 tablet every day by oral route for 30 days. 2024 active Not Available Not Available Not Avai lable oxycodone 5 mg tablet Take 1 tablet every 6 hours by oral route as needed for 14 days. 12/11 completed Not Available Not Available Not Available magnesium 200 mg tablet Take 1 tablet every day by oral route at bedtime. 08/18 completed Not Available Not Available Not Available rosuvasta tin 10 mg tablet TAKE 1 TABLET BY MOUTH EVERY DAY active Not Available Not Available [...] Available Not Available Not Available tizanidin e 6 mg capsule TAKE 1 CAPSULE BY MOUTH THREE TIMES A DAY active Not Available Not Available No t Available tizanidin e 4 mg capsule TAKE [...] tended release TAKE 1 TABLET BY MOUTH 3 TIMES A DAY active Not Available Not Available No t Available Myrbetriq 50 mg tablet,ex tended release TAKE 1 TABLET BY MOUTH EVERY DAY DIRECTED 05/10 completed Not Available Not Available Not Available Linzess 145 mcg capsule TAKE 1 CAPSULE BY MOUTH EVERY DAY 06/29 completed Not Available Not Available Not Available Linzess 290 mcg capsule PLEASE SEE ATTACHED FOR DETAILED DIRECTIO NS active Not Available Not Available No t Available Xeomin 200 unit intramusc ular solution [...] completed Not Available Not Available Not Available prucalopr mary 1 mg tablet Take 1 tablet twice a day by oral route for 30 days. 06/29 completed Not Available Not Available Not Available Flowflex COVID-19 Antigen Home Test kit 05/16 completed Not Available Not Available Not Available Vitals Date Recorded Body height Body mass index (BMI) Body weight Oxygen saturation Oxygen saturation in Arterial blood by Pulse oximetry Heart rate Systolic And Diastolic Provider Name and Address Organization Details Last Updated DateTime 3 160.66 cm 19 kg/m2 56892.9 8 g 98 % 98 % 62 /min 100/60 mm[Hg] Theresa Chicas [facility] 3 13:38:33 Date Recorded Body weight Heart rate Oxygen saturation Oxygen saturation in Arterial blood by Pulse oximetry Systolic And Diastolic Provider Name and Address Organization Details Last Updated DateTime 4 71952.1 8 g 80 /min 98 % 98 % 120/70 mm[Hg] Rosa Dillon [facility] 4 13:37:17 Date Recorded Body height Body mass index (BMI) Body weight Heart rate Oxygen saturation Oxygen saturation in Arterial blood by Pulse oximetry Systolic And Diastolic Provider Name and Address Organization Details Last Updated DateTime 5 160.02 cm 20.4 kg/m2 04545.1 2 g 84 /min 93 % 93 % 120/78 mm[Hg] DANTE JEAN BAPTISTE [address] [place], [address] 5 16:08:35 Date Recorded Body height Body mass index (BMI) Body weight Heart rate Oxygen saturation Oxygen saturation in Arterial blood by Pulse oximetry Systolic And Diastolic Provider Name and Address Organization Details Last Updated DateTime 4 160.66 cm 20.6 kg/m2 79237.3 1 g 83 /min 96 % 96 % 116/62 mm[Hg] Hill Jiménez [facility] 4 16:07:16 Date Recorded Body height Heart rate Oxygen saturation Oxygen saturation in Arterial blood by Pulse oximetry Body mass index (BMI) Body weight Systolic And Diastolic Provider Name and Address Organization Details Last Updated DateTime 5 160.02 cm 80 /min 98 % 98 % 20.4 kg/m2 44611.1 2 g 130/80 mm[Hg] Judith Pettitmond [facility] 5 14:12:39 Social History Question Answer Notes LastModified by Organizat ion Details LastModified Time Tobacco Smoking Status Never Smoker Not Available [facility] 02/29/2020 03:36:24 What Was The Date Of Your Most Recent Tobacco Screening? 02/23/2025 [email or web address] Information not available 02/23/2025 Sex: Unknown Functional Status None recorded. Mental [...] virus, quadrivalent, preservative 1 completed Not Available [facility] 12/11/2022 09:42:48 COVID-19, mRNA, LNP-S, PF, 30 mcg/0.3 mL dose 1 completed Theresa walker [facility] 03/05/2021 08:34:14 COVID-19, mRNA, LNP-S, PF, 30 mcg/0.3 mL dose 2 completed Not Available [facility] 12/11/2022 09:42:48 COVID-19, mRNA, LNP-S, PF, 50 mcg/0.5 mL dose 2 completed Not Available [facility] 12/11/2022 09:42:48 zoster recombinant 2 completed [facility] Available [facility] 12/11/2022 09:42:48 zoster recombinant 2 completed Not Available [facility] 12/11/2022 09:42:48 influenza, unspecified formulation 2 completed Not Available [facility] 12/11/2022 09:42:48 Influenza, split virus, quadrivalent, preservative 9 completed Not Available [facility] 11/08/2020 09:44:49 zoster recombinant 9 completed Not Available [facility] 11/08/2020 09:44:49 Influenza, split virus, quadrivalent, preservative 0 completed Not Available [facility] 11/08/2020 09:44:49 COVID-19, mRNA, LNP-S, PF, 100 mcg/0.5mL dose or 50 mcg/0.25mL dose 1 completed Not Available [facility] 11/08/2020 09:44:49 COVID-19, mRNA, LNP-S, PF, 100 mcg/0.5mL dose or 50 mcg/0.25mL dose 1 completed Not Available [facility] 11/08/2020 09:44:49 Past Encounters Encounter ID Performer Location Encounter Start Date Encounter Closed Date Diagnosis/Indication Diagnosis SNOMED-CT Code Diagnosis ICD10 Code Diagnosis IMO Codes Diagnosis Note [id number] Berry Robles [facility] [address] [place] [address], [place] [address] 08/15/2017 14:21:53 08/15/2017 15:25:04 Bursitis of left shoulder 2564825941 15068 M75.52 [id number] Berry Robles [facility] [address] [place] [address], [place] [address] 09/29/2017 10:05:46 09/29/2017 17:11:03 Streptococcal infectious disease 00122892 A49.1 Cervical lymphadenopathy 057515508 R59.0 Malaise and fatigue 2717 42119 R53.81 f/u in office in 2 days [id number] Berry Robles [facility] [address] [facility], [place] [address] 10/01/2017 09:05:44 10/01/2017 10:28:19 Heart murmur 77257876 R01.1 f/u in office 1 week after exam Viral syndrome 386544945 B34.9 symptoms improved work note provided for this week [id number] Berry Robles [facility] [address] [place] [address], [employer] [place] [address] 10/27/2017 15:45:49 10/27/2017 16:37:31 Intermittent palpitations 845406072 R00.2 Hypercholesterolemia 136 23929 E78.00 Good RR, continue healthy lifestyle [id number] Berry Robles [facility] [address] [place] [address] 03/31/2018 09:27:19 03/31/2018 10:08:36 Diarrhea 25781917 R19.7 Family problems 81642960 4 Z63.79 discussed [id number] Berry Robles [facility] [address] [place] [address] 10/27/2018 10:13:36 10/27/2018 11:48:51 Adult health examination 450047868 Z00.00 Active or passive immunization 722564965 Z23 Hypercholesterolemia 136 75827 E78.00 Microscopic hematuria 19 3200257 R31.21 s/p menopause no uti sx Vitamin D deficiency 347 56851 E55.9 Cellulitis 747100412 L03 .90 2/2 wasp or yellow jacket sting [id number] Berry Robles [facility] [address] [address] 03/07/2020 08:25:47 03/07/2020 15:47:24 Central cord syndrome of cervical spinal cord 688653844 S14.129A doing much better fu as needed Tetraplegia 67219969 G82 .53 doing well able to walk and move with limited assistance of walker [id number] Berry Robles [facility] [address] [place] [address] 03/21/2020 11:47:00 03/21/2020 16:06:01 Osteopenia 350462250 M85.80 will start on alendronat e qdwk Spasm 02772465 R25.2 will check mag level Tetraplegia 21405514 G82 .54 doing well able to walk and move with limited assistance of walker improving Central co rd syndrome of cervical spinal cord 548087060 S14.129A doing better, 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 [id number] Berry Robles [facility] [address] [facility] [place] [address] 04/10/2020 11:43:36 04/10/2020 16:18:23 Herpes zoster 1090088 B02.9 looks like shingles rash following trigeminal pathway will see if improvemen t on valtrex and pred taper, concern is that is on her rigth eyelid, it being so close to her eye Central co rd syndrome of cervical spinal cord 789963095 S14.129A doing better, 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 Tetraplegia 24928693 G82 .54 doing well able to walk and move with limited assistance of walker improving [id number] Berry Robles [facility] [address] [facility], [place] [address] 05/31/2020 14:54:50 05/31/2020 16:09:05 Central cord syndrome of cervical spinal cord 009528832 S14.129D long detailed discussion we will havce her see specialist tomorrow a dr zapata plan to increase her baclofen to 10 tid relates having issues with burning sensation and has had issues with this in the leg as well also she wishes to come off the oxycodone only taking this for the burning sensation in her hands and leg Hypercholesterolemia 136 01405 E78.00 will cont to follow and we will repeat lab shortly Lower limb spasticity 39 7293822 M62.838 she is only taking 5 mg tid we will increase to 10mg [id number] Berry Robles DO [facility] [address] [facility],[place] [address] 09/27/2020 10:47:56 09/27/2020 11:12:04 Tetraplegia 83951454 G82.54 doing well able to walk and move with limited assistance of walker and even now without one improving and follows with her neuro and PT Peripheral venous insufficiency 51747556 I87.2 will address this at next visit so I can do a proper exam Bite of no nvenomous spider 573585275 W57.XXXS possibly a spider bite will start on short course of doxy [id number] Berry oRbles [facility] [address] [facility],[place] [address] 10/04/2020 16:20:05 10/04/2020 16:53:29 Central cord syndrome of cervical spinal cord 622761214 S14.129A doing better, 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 Tetraplegia 26660625 G82 .54 doing well able to walk and move with limited assistance of walker and even now without one improving at home and follows with her neuro and PT Peripheral venous insufficiency 65035305 I87.2 mild varicose veins of the lower extremitie s, discussed with patient this is due to SCI [id number] Berry Robles [facility] [address] [place] [address],[place] [address] 12/11/2020 15:45:26 12/11/2020 16:41:59 Active or passive immunization 940142680 Z23 advised Adult heal th examination 968795125 Z00.00 needs lab work Hypomagnesemia 377467799 E83.42 will recheck Anemia 181572705 D50.0 will fu with lab work [id number] Berry Robles [facility] [address] [place] [address],[place] [address] 12/29/2020 09:39:24 01/02/2021 11:49:00 Central cord syndrome of cervical spinal cord 892131236 S14.129A doing better, 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 Hypercholesterolemia 136 46475 E78.00 start red yeast rice and fish oil [id number] Berry Robles [facility] [address] [place] [address],[place] [address] 05/07/2021 09:53:25 05/07/2021 16:29:31 Dysuria 09764656 R30.0 will fu with treatment plan [id number] Berry Robles [facility] [address] [place] [address],[place] [address] 05/11/2021 09:17:34 05/18/2021 10:22:27 Tetraplegia 49126399 G82.54 recent fu, having an MRI with neurosurge ry Dysuria 36147133 R30.0 stop medication except anti-emeti c Nausea 373066676 R11.0 continue as needed if she is nauseous [id number] Berry Robles DO [facility] [address] [facility] [address],[place] [address] 05/10/2022 13:24:42 05/14/2022 08:36:53 Active or passive immunization 214288434 Z23 advised Adult heal th examination 743941336 Z00.00 needs lab work [address] co rd syndrome of cervical spinal cord 355985530 S14.129A will adjust to the 10 mg prednisone as needed on top of the 5 mg Screening for osteoporosis 649877884 Z13.820 will set up with bone density screeningn eeds recheck Kidney stone 43108988 N2 0.0 left kidneyonly has on kidney Aneurysm o f splenic artery 34743806 I72.8 seeing cardio for eval since her insurance denied the CTA for it Vitamin D deficiency 347 18369 E55.9 will recheck [id number] Berry Robles [facility] [address] [facility],[place] [address] 05/16/2023 13:27:15 05/16/2023 15:25:23 Constipation 90065135 K59.01 will try first with linzess, would like to try motegrity at the end Aneurysm o f spinal artery 9790902 I72.8 stable 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 439041865 G82.54 improving Adult heal th examination 705410792 Z00.00 needs lab workfor routine stuff Hyperlipidemia 28508968 E78.01 will recheck lipid levels Family his tory of breast cancer 932903318 Z80.3 found mutation her daughter haswill check for this Vesicular eczema of hand 895693207 L30.8 will start on clobetasol to see if alleviates her symptoms [id number] Berry Robles [facility] [address] [facility] [address],[place] itsanjiv [place] [address] 08/19/2023 15:57:08 08/20/2023 08:22:19 Allergic rhinitis 50523387 J30.1 agreed to trying flonase and will use debrox on the Impacted c erumen in right ear 9609326634 425382 H61.21 will use debrox [id number] Berry Robles DO [facility] [address] [facility],[place] [address] 05/19/2024 15:52:54 05/21/2024 08:08:28 Active or passive immunization 259066017 Z23 advised Adult heal th examination 991121356 Z00.00 BP is excellent Heterogene ously dense breast composition 072683115 R92.2 suggested MRI Dupuytren' s contracture of finger 468135591 M72.0 bilaterall y, seeing hand specialist , does not need surgery at this time Osteoporosis 50340496 M8 1.0 will set up bone density, due for two year checkhas only been doing the calcium and vit d due to intoleranc e of the alendronat e Hyperlipidemia 35928010 E78.01 will recheck lipid levels [id number] Berry Robles [facility] [address] [facility],[place] [address] 02/23/2025 14:05:06 02/23/2025 14:39:39 Accidental fall 408726891 W19.XXXA 1827610 Injury of head 95324130 S09.90XA 9541362 recommende d XR Scalp laceration 8995891 08 S01.01XA 9256137 Health Concerns Section Related Observation LastModified by Organization Detai ls LastModified Time None Recorded Concern Status LastModified by Organization Details LastModified Time None Recorded Advance Directives Directive None Recorded Payers Insurance Date Sequence Insurance Name Policy Number Policy Dennis Covered Member ID Dennis Member ID Guarantor Name 02/23/[address] [place] [address] [id number] 1 Vincent Cuevas [id number] Vincent Cuevas Notes Date Note Type Note Provider Name a nd Address Organization Details Recorded Time 3 text/html Annual WellnessReported by PatientSocial/Behavio ral HistoryFor diet and nutrition, patient reportshealthy diet,discussed vitamin and supplement use,discussed portion control,discussed maintaining calcium balance, anddiscussed diet improvement. For physical activity, patient reportsexercises on a regular basis,recent increase in physical activity,good physical condition,discussed weightbearing activities, anddiscussed exercise habits(does yogawalksdoes chair yoga at [facility] in [place]). For additional lifestyle factors, patient reportsno tobacco useandno alcohol intake.Mental Status:For depression risk, patient reportsnever feels sad, empty, or tearful,no loss of interest in activities,no significant changes in weight,no sleep disturbances or insomnia,no agitation,no loss of energy,no feelings of worthlessness or guilt,no thoughts of suicide,no history of depression, andno history of mood disorders.Functional AbilityFor hearing, patient reportsno loss of hearing. For vision, patient reportsno vision problems. 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 For fracture risk, patient reportsno history of fractures,no recent explained fracture,no sudden unexplained fractures, andno previous musculoskeletal injuries. For physical activity, patient reportsdiscussed weightbearing activitiesanddiscusse d exercise habits. For additional lifestyle factors, patient reportsno tobacco useandno alcohol intake.Mental Status:For depression risk, patient reportsnever feels sad, empty, or tearful,no loss of interest in activities,no significant changes in weight,no sleep disturbances or insomnia,no agitation,no loss of energy,no feelings of worthlessness or guilt,no thoughts of suicide,no history of depression, andno history of mood disorders.Functional AbilityFor hearing, patient reportsno loss of hearing. For vision, patient reportsno vision problems. the patient started getting botox injections for [...] the severe constipation DANTE JEAN BAPTISTE [address] [place], [address], [facility] 05/16/2023 14:20:27 4 text/html ROS as noted in the HPI c/o tinnitus in the bilateral ears the patient is still having the ringing in the earsR side, more so than left sidehearing is stable, no changes does note she is having nasal congestion, sinus pressure, headaches headache could have been a side effect to the Zeoman, it will taper off otherwise doing well DANTE JEAN BAPTISTE [address] [facility], [place], [address], [facility] 08/19/2023 16:28:55 5 text/html Annual WellnessReported by PatientSocial/Behavio ral HistoryFor diet and nutrition, patient reportshealthy diet,discussed vitamin and supplement use,discussed portion control,discussed maintaining calcium balance, anddiscussed diet improvement. For fracture risk, patient reportsno history of fractures,no recent explained fracture,no sudden unexplained fractures, andno previous musculoskeletal injuries. For physical activity, patient reportsexercises on a regular basis,recent increase in physical activity, andgood physical condition. For additional lifestyle factors, patient reportsno tobacco useanddrinks alcohol (mild-moderate).Menta l Status:For depression risk, patient reportsnever feels sad, empty, or tearful,no loss of interest in activities,no significant changes in weight,no sleep disturbances or insomnia,no agitation,no loss of energy,no feelings of worthlessness or guilt,no thoughts of suicide,no history of depression, andno history of mood disorders.Functional AbilityFor hearing, patient reportsno loss of hearing. For vision, patient reportsno vision problems.ROS as noted in the HPI the patient had been doing well with the adjustment to the misoprostol 100 mg QID, currently takes it at breakfast, lunch and dinner and before bedreports very loose stool, will take away night-time dose DANTE JEAN BAPTISTE [address] [place], [address], [facility] 05/19/2024 16:59:49 5 text/html ROS as noted in the HPI c/o fall with head injury the patient reports that she fell, hit her head on the wallno LOC, aware of the entire fall and mechanism of fallthe patient reports that she had a mild headache but otherwise fineno neuro deficits or complications the patient has a scalp laceration (gouge) no skin edged able to be stapled or sutured, scabbing over well, bleeding is very minimalgiven cleaning and care instructions the patient is clear, concise, [id number] movement, ROMno other changes recommended she get neck XR, possible CT head if symptoms develop DANTE JEAN BAPTISTE [address] [place], [address], [facility] 02/23/2025 14:42:32 OBGyn Episode No OBEpisode recorded.
--- OUTSIDE RECORDS SUMMARY | 2025-02-24 18:04 | XMS_ITS | Continuity of Care Document ---
Author Organization [facility] Address [address] [facility] [place] [address] [place] [address] Assessment No assessment recorded. Plan of Treatment Reminders Order Date Submit Date Provider Last Modified By Organization Details Last Modified Time Details Appointments ANNUAL EXAM 2025 03:45P M DANTE JEAN BAPTISTE Not available Not available Not available Lab None recorded. Referral None recorded. Procedures None recorded. Surgeries None recorded. Imaging XR, cervical spine, 2 or 3 view 2024 025 [facility] (Imaging), [address] [place] [address], [address], 02/24/2025 16:02:20 Medication Orders None recorded. Patient TargetsNo targets recorded. Patient InstructionsNo instructions recorded. Reason for Referral None Reported. Results Created Date Observation Date Name Description Value Unit Range Abnormal Flag Note LastModifiedBy Organization Detail LastModifiedTime 02/25/20 25 02/24/2025 XR, cervi danny spine , 2 or 3 view No observ ation record ed. [place] [id number] [facility] [place], [address], 02/24/2025 16:02:20 Result Notes None recorded. Problems Name Problem SNOMED Code Status Onset Date Resolution Date Notes Provider Name and Address Organization Details Recorded Time Hypercho lesterol emia 51233889 Active 2017 DANTE Campos [address] [place], [address], [facility] 08:29:47 Hypermet ropia 25263671 Active 2018 Not Available [facility] 2 10:18:57 Myopia 41367567 Active 2018 Not Available [facility] 2 10:18:57 Central cord syndrome of cervical spinal cord 179644227 Active 2019 Not Available [facility] 2 10:18:57 Tetraple tali 56605116 Active 2019 incomplet e C5-C7 Not Available [facility] 2 10:18:57 Osteopor osis 32356422 Active 2020 Not Available [facility] 2 10:18:57 Dysuria 87756296 Active 2021 Not Available [facility] 2 10:18:57 Aneurysm of splenic artery 28310926 Active 2021 DANTE JEAN BAPTISTE [address] [place], [address], [facility] 2 09:13:53 Injectio n site inflamma tion 54578814 Active 2021 DANTE JEAN BAPTISTE [address] [place], [address], [facility] 2 11:47:32 Kidney stone 65384587 Active 2022 DANTE JEAN BAPTISTE [address] [place], [address], [facility] 3 14:21:48 Vitamin D deficien cy 93515648 Active 2022 DANTE JEAN BAPTISTE [address] [place], [address], [facility] 3 14:24:02 Osteopen ia 930200530 Active 2022 DANTE JEAN BAPTISTE [address] [place], [address], [facility] 3 14:11:03 Hyperlip idemia 07932328 Active 2022 DANTE JEAN BAPTISTE [address] [place], [address], [facility] 3 15:42:47 Constipa tion 83298319 Active 2023 DANTE JEAN BAPTISTE [address] [place], [address], [facility] 4 13:52:05 Aneurysm of spinal artery 3607513 Active 2023 DANTE JEAN BAPTISTE [address] [place], [address], [facility] 4 14:09:15 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 429488387 Active 2023 DANTE JEAN BAPTISTE [address] [place], [address], [facility] 4 14:09:16 Vesicula r eczema of hand 762342291 Active 2023 DANTE JEAN BAPTISTE [address] [place], [address], [facility] 4 14:14:11 Chronic constipa tion 186938647 Active 2023 DANTE JEAN BAPTISTE [address] [place], [address], [facility] 4 14:49:18 Allergic rhinitis 07460303 Active 2023 DANTE JEAN BAPTISTE [address] [place], [address], [facility] 4 16:20:03 Impacted cerumen in right ear 24631527250 70284 Active 2023 DANTE JEAN BAPTISTE [address] [place], [address], [facility] 4 16:25:00 Tinnitus 51388029 Active 2023 DANTE JEAN BAPTISTE [address] [place], [address], [facility] 4 08:55:40 Pelvic floor dysfunct ion 070627399 Active 2023 DANTE JEAN BAPTISTE [address] [place], [address], [facility] 4 12:08:29 Heteroge neously dense breast composit ion 641281743 Active 2024 DANTE JEAN BAPTISTE [address] [place], [address], [facility] 5 16:22:45 Dupuytre n's contract ure of finger 353193139 Active 2024 DANTE JEAN BAPTISTE [address] [place], [address], [facility] 5 16:33:31 Liver function tests outside referenc e range 690516876 Active 2024 DANTE JEAN BAPTISTE [address] [place], [address], [facility] 5 09:34:38 Slow transit constipa tion 03389900 Active 2024 DANTE JEAN BAPTISTE [address] [place], [address], [facility] 5 08:43:55 Urinary tract infectio us disease 97688867 Active 2024 DANTE JEAN BAPTISTE [address] [place], [address], [facility] 5 12:05:58 Injury of head 83326314 Active 2024 DANTE JEAN BAPTISTE [address] [place], [address], [facility] 14:30:17 Scalp lacerati on 328759671 Active 2024 DANTE JEAN BAPTISTE [address] [place], [address], [facility] 14:30:38 Notes:only has the left kidn ey Problem Notes None recorded. Medical Equipment None Reported. Allergies Allergen ID Allergen Name Allergen Category Reaction Reaction Severity Criticality Documentation Date Start Date Code Code System Note Provider Name and Address Organization Details Recorded Time 3152 Product containin g penicilli n (product) medicatio n rash Not available Not available 10/27/2018 73094 8001 SNOMED Bernadette walker [facility] 9 10:18:39 5324 Macrobid medicatio n nausea moderate Not available 05/11/2021 71394 1 RxNorm DANTE JEAN BAPTISTE [address] [place] [address], [address], [facility] 2 11:13:41 984 amoxicill in medicatio n rash Not available Not available 08/15/2017 723 RxNorm Bebe walker [facility] 8 08:29:49 985 Substance with sulfonami de structure and antibacte rial mechanism of action (substanc e) medicatio n rash Not available Not available 08/15/2017 43015 8003 SNOMED Bebe walker [facility] 8 08:29:59 Medications Name Sig Start [...] Not Available Vitals Date Recorded Body height Heart rate Oxygen saturation Oxygen saturation in Arterial blood by Pulse oximetry Body mass index (BMI) Body weight Systolic And Diastolic Provider Name and Address Organization Details Last Updated DateTime 5 160.02 cm 80 /min 98 % 98 % 20.4 kg/m2 05842.1 2 g 130/80 mm[Hg] Judith Duffy [facility] 5 14:12:39 Social History Question Answer Notes LastModified by Organizat ion Details LastModified Time Tobacco Smoking Status Never Smoker Not Available [facility] 02/29/2020 03:36:24 What Was The Date Of Your Most Recent Tobacco Screening? 02/23/2025 [email or web address] Information not available 02/23/2025 Sex: Unknown Functional [...] virus, quadrivalent, preservative 1 completed Not Available [facility] 12/11/2022 09:42:48 COVID-19, mRNA, LNP-S, PF, 30 mcg/0.3 mL dose 1 completed Theresa walker [facility] 03/05/2021 08:34:14 COVID-19, mRNA, LNP-S, PF, 30 mcg/0.3 mL dose 2 completed Not Available [facility] 12/11/2022 09:42:48 COVID-19, mRNA, LNP-S, PF, 50 mcg/0.5 mL dose 2 completed Not Available [facility] 12/11/2022 09:42:48 zoster recombinant 2 completed Not Available [facility] 12/11/2022 09:42:48 zoster recombinant 2 completed Not Available [facility] 12/11/2022 09:42:48 influenza, unspecified formulation 2 completed Not Available [facility] 12/11/2022 09:42:48 Influenza, split virus, quadrivalent, preservative 9 completed Not Available [facility] 11/08/2020 09:44:49 zoster recombinant 9 completed Not Available [facility] 11/08/2020 09:44:49 Influenza, split virus, quadrivalent, preservative 0 completed Not Available [facility] 11/08/2020 09:44:49 COVID-19, mRNA, LNP-S, PF, 100 mcg/0.5mL dose or 50 mcg/0.25mL dose 1 completed Not Available [facility] 11/08/2020 09:44:49 COVID-19, mRNA, LNP-S, PF, 100 mcg/0.5mL dose or 50 mcg/0.25mL dose 1 completed Not Available [facility] 11/08/2020 09:44:49 Past Encounters Encounter ID Performer Location Encounter Start Date Encounter Closed Date Diagnosis/Indication Diagnosis SNOMED-CT Code Diagnosis ICD10 Code Diagnosis IMO Codes Diagnosis Note [id number] Berry Robles DO [facility] Internal [facility] [address] [facility],[place] [address] 02/23/2025 14:05:06 02/23/2025 14:39:39 Accidental fall 496659234 W19.XXXA 7496486 Injury of head 93597907 S09.90XA 2013852 recommende d XR Scalp laceration 4000489 08 S01.01XA 8929733 Health Concerns Section Related Observation LastModified by Organization Detai ls LastModified Time None Recorded Concern Status LastModified by Organization Details LastModified Time None Recorded Payers Encounter Date Sequence Insurance Name Policy Number Policy Dennis Covered Member ID Dennis Member ID Guarantor Name 02/23/2025 1 [facility] [id number] 1 Vincent Cuevas [id number] Vincent Cuevas Notes Date Note Type Note Provider Name a nd Address Organization Details Recorded Time 02/23/2025 text/html ROS as noted in the HPI [...] care instructions the patient is clear, concise, [id number] movement, ROMno other changes recommended she get neck XR, possible CT head if symptoms develop DANTE JEAN BAPTISTE [address] [facility], [place], [address], [facility] 02/23/2025 14:42:32 OBGyn Episode No OBEpisode recorded.
--- OUTSIDE RECORDS SUMMARY | 2025-02-24 18:04 | XMS_ITS | Patient Health Record ---
Author Organization [facility] Address [address] [place] [address] Care Team Providers Care Manager Environmental Services Name Role Phone Berry Robles Primary Care Provider Joe Rosen Jr Allergies Allergen (clinical drug ingredient) Drug/Non Drug Allergy documented on EMR Reaction Allergy Type Onset Date Status sulfacetamide Sulfacetamide Sodium Unknown Drug Allergy Active penicillin G Penicillin G Sodium Unknown Drug Allergy Active sulfamethoxazole / trimethoprim Bactrim Unknown Drug Allergy Active amoxicillin Amoxicillin Unknown Drug Allergy Act raymond Reason For Referral No Information Medications Medication SIG (Take, Route, Frequency, Duration) Notes Start Date End Date Status MiraLax (colon prep) 8.3 ounce ((238) grams mixed with Gatorade or Crystal Light orally begin at 5:00 p.m. the day before the procedure; Duration: 1 day 07/29/2019 Active Vitamin D-Vitamin K - as directed Orally once a day Active Calcium Magnesium 750 300-300 MG 1 tablet with meals Orally once a day Active Fish Oil 1000 MG 1 capsule Orally Onc e a day; Duration: 30 day(s) Active Probiotic 250 MG 1 capsule Orally onc e a day Active Immunizations Vaccine Route Administration Date Status Comme nts Influenza Unknown 01/26/2019 Administered Influenza Unknown 06/10/2018 Refused Social History Tobacco Use: Social History Observation Description Date Details (start date - stop date) Never Smoker NA - NA Tobacco Use/Smoking Question Answer Notes Patient is a nonsmoker Alcohol Screen Question Answer Notes Did you have a drink contain ing alcohol in the past year? Yes How often did you have a dri nk containing alcohol in the past year? 2 to 3 times a week (3 points) How many drinks did you have on a typical day when you were drinking in the past year? 1 or 2 drinks (0 point) How often did you have 6 or more drinks on one occasion in the past year? Never (0 point) Points 3 Interpretation Positive Problems Problem Type SNOMED Code ICD Code Onset Dates Problem Status W/U Status Risk Notes Problem Colon cancer screening (566543144) Colon cancer screening (Z12.11) Active confirmed Problem Diarrhea (05511282) Diarrhea, unspecified type (R19.7) Active confirmed Plan Of Treatment Future Test Test Name Order Date COLONOSCOPY 07/29/2019 Insurance Providers Payer Name Payer Address Payer Phone Subscriber Number Group Number Insured Name Patient Relationship to Insured Coverage Start Date Coverage End Date [facility] [address] [facility] [phone] [id number] MILAN LOVE Self - patient is the insured Medical (General) History Medical History History ICD Code colonoscopy 11/03/09, normal, ten-year fol lowup recommended Denies CO,DM,CVA,Lung disease,renal dise ase Surgical History Surgery Date(Month/Year) partial hysterectomy 1995
== END 2025-02-24 15:37 | disposition home or self-care (01) ==
LOC: HO.HMGCX 15:36
PROVIDERS: PCP Physician Assistant; Visit Provider Physician Assistant
DX: S09.90XA Unspecified injury of head, initial encounter (principal)
CPT/HCPCS: 72040

== ENCOUNTER → 2025-02-24 15:43 | Outpatient (BNV) | payer OTHER, SELFPAY | PROVIDERS: PCP Physician Assistant; Visit Provider Radiology Diagnostic Radiology | DX: M54.2 Cervicalgia (principal); W18.30XA Fall on same level, unspecified, initial encounter | CPT/HCPCS: 72040 ==

== ENCOUNTER 2025-03-11 15:37 | Outpatient (REF) | payer OTHER, SELFPAY ==
--- NOTE | ~2025-03-11 | CT_ITS ---
EXAMINATION: CT HEAD WITHOUT CONTRAST CLINICAL INFORMATION: Fall COMPARISON: 03/12/1970 TECHNIQUE: Contiguous axial imaging was performed from the skull base to vertex without intravenous administration of contrast. This CT examination was performed using dose optimization techniques as appropriate, variously including the following: *Automated exposure control *Adjustment of mA and/or kV according to patient size (this includes techniques or standardized protocols for targeted exams where dose is matched to indication/reason for exam; i.e. extremities or head) *Use of iterative reconstruction technique FINDINGS: There is no acute ischemic change. There is no intracranial hemorrhage. There is no mass-effect or midline shift. Basal cisterns and ventricles are within normal limits for age/cerebral volume. 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 There is mild mucosal thickening in the anterior ethmoid air cells. There are no bony abnormalities. CT/CT head/brain wo IV con IMPRESSION: No acute intracranial abnormality. Mild chronic anterior ethmoid sinus mucosal thickening. Electronically signed by: Steven Sun MD 03/11/2025 05:39 PM EST
--- OUTSIDE RECORDS SUMMARY | 2025-03-12 00:43 | XMS_ITS | Data Portability ---
Author Organization [facility], Telehealth Patient Home Address [address] [place] [address] Assessment No assessment recorded. Plan of Treatment Reminders Order Date Submit Date Provider Last Modified By Organization Details Last Modified Time Details Appointments ANNUAL EXAM 2025 03:45P DANTE BONILLA Not available Not available Not available Lab lipoprote in-associ ated phospholi pase A2 (pla2), serum 2024 025 [facility], [address] [place] [address], [address], 05/19/2024 16:44:01 lipid panel, serum 2024 025 [facility], [address] [place] [address], [place], [address], 05/19/2024 16:44:01 CMP, serum or plasma 2024 025 [facility], [address] [place] [address], [place], [address], 06/08/2024 13:09:10 CBC w/ auto diff 2024 025 [facility], [address] [place] [address], [address], 05/19/2024 16:44:01 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, blood or tissue - blood test 2023 024 [email or web address] [facility] (Centralized Electronic Ordering - All Locations), Patient Can Go To The Location Of Their Choice, [address] 05/16/2023 14:07:50 apolipopr otein A-I + A-II + B + C panel, QN, serum or plasma 2023 024 [facility], [address] [place] [address], [place], [address], 05/16/2023 14:08:54 lipid panel, serum 2023 024 [facility], [address] [place] [address], [address], 06/02/2023 17:22:17 CMP, serum or plasma 2023 024 [facility], [address] [place] [address], [address], 06/02/2023 17:22:17 CBC w/ auto diff 2023 024 [facility], [address] [place] [address], [address], 06/02/2023 17:22:17 vitamin D, 25-hydrox y, total, serum 2022 023 [facility], [facility] [place] [address] [address], [address], 05/10/2022 15:11:53 hepatic function panel, serum 2022 023 [facility], [facility] [place], [address], 05/10/2022 15:11:53 CMP, serum or plasma 2022 023 [facility], [address] [place] [address] [place], [address], 05/10/2022 15:11:53 CBC w/ auto diff 2022 023 [facility], [address] [place] [address] [place], [address], 05/10/2022 15:11:53 lipid panel, blood 2022 023 [facility], [address] [place] [address] [place], [address], 05/10/2022 15:11:53 Referral None recorded. Procedures None recorded. Surgeries None recorded. Imaging XR, cervical spine, 2 or 3 view 2024 025 [email or web address] [facility] (Imaging), [address] [place], [address], 02/25/2025 09:28:34 bone density 2024 025 [facility] Central Scheduling, [address] [place], [address], 05/25/2024 08:22:02 MRI, breast, bilateral , w/wo contrast - dense breast tissue, sig family hx of breast cancer, MM cannot fully access for malignanc y MM cannot fully access for malignanc y 2024 025 [facility] [place], [address] [place] [address] [place], [address], 05/28/2024 10:28:27 bone density - due for repeat bone scan 2022 023 [facility] Central Scheduling, [address] [place], [address], 05/24/2022 10:39:28 Medication Orders fluticaso ne propionat e 50 mcg/actua tion nasal spray,barbara pension 2023 024 VÍCTOR [id number], [address] [facility] [place], [address], 08/19/2023 16:21:31 Linzess 72 mcg capsule 2023 024 [email or web address] [id number], [address] [facility] [place], [address], 06/09/2023 10:51:01 clobetaso l 0.05 % topical cream 2023 024 VÍCTOR [id number], [address] [place], [address], 05/16/2023 14:14:28 prednison e 10 mg tablet 2022 023 [email or web address] [id number], [address] [place], [address], 05/16/2023 13:33:57 Patient TargetsNo targets recorded. Patient InstructionsNo instructions recorded. Reason for Referral None Reported. Results Created Date Observation Date Name Description Value Unit Range Abnormal Flag Note LastModifiedBy Organization Detail LastModifiedTime 05/30/1905/30/2022 bone densi ty No observ ation record ed. [facility] [address] [facility], [place], [address], 05/31/2022 09:41:01 07/30/19 23 07/26/2022 CT, coron pal calci um score No observ ation record ed. [email or web address] [place] [address] [facility] [address] [place], [address], 07/30/2022 09:12:07 09/25/19 23 09/18/2022 imagi ng/di agnos tic resul t No observ ation record ed. [facility] [address] , [place], [address], 09/24/2022 12:10:16 03/23/20 23 03/03/2023 MAMMO , anita engel, digit al, bilat eral No observ ation record ed. [facility] [address] [place], [address], 03/24/2023 08:36:35 01/20/20 24 01/16/2024 US, duple x, renal arter y No observ ation record ed. [facility] [address] [facility], [place], [address], 01/20/2024 08:48:28 04/01/20 24 03/31/2024 CT, abdom en + pelvi s, w/o contr ast No observ ation record ed. [email or web address] [facility] [address] [address], [place], [address], 04/02/2024 12:09:00 04/28/19 25 04/16/2024 MAMMO , scree toro, digit al, bilat eral No observ ation record ed. [email or web address] [address] [place], [address], 04/28/2024 19:00:16 06/18/19 25 06/18/2024 US, breas t, bilat eral, compl ete No observ ation record ed. [address] [place], [address], 06/18/2024 10:05:43 06/24/19 25 06/24/2024 bone densi ty No observ ation record ed. [address] [place], [address], 06/25/2024 08:51:26 02/25/20 25 02/24/2025 XR, cervi danny spine , 2 or 3 view No observ ation record ed. [email or web address] [address] [place], [address], 02/25/2025 10:14:12 03/11/20 25 03/11/2025 CT, head + brain , w/o contr ast No observ ation record ed. [facility] (Medical Records) [address] [facility], [place], [address], 03/11/2025 17:45:05 Result Notes None recorded. Problems Name Problem SNOMED Code Status Onset Date Resolution Date Notes Provider Name and Address Organization Details Recorded Time Hypercho lesterol emia 98352894 Active 2017 DANTE Campos [address] [place], [address], [facility] 5 08:29:47 Hypermet ropia 60719737 Active 2018 Not Available [facility] 2 10:18:57 Myopia 92847032 Active 2018 Not Available [facility] 2 10:18:57 Central cord syndrome of cervical spinal cord 435686041 Active 2019 Not Available [facility] 2 10:18:57 Tetraple tali 60290790 Active 2019 incomplet e C5-C7 Not Available [facility] 2 10:18:57 Osteopor osis 93839147 Active 2020 Not Available [facility] 2 10:18:57 Dysuria 19887504 Active 2021 Not Available [facility] 2 10:18:57 Aneurysm of splenic artery 49027738 Active 2021 DANTE JEAN BAPTISTE [address] [place], [address], [facility] 2 09:13:53 Injectio n site inflamma tion 35602218 Active 2021 DANTE JEAN BAPTISTE [address] [place], [address], [facility] 2 11:47:32 Kidney stone 80545294 Active 2022 DANTE JEAN BAPTISTE [address] [place], [address], [facility] 3 14:21:48 Vitamin D deficien cy 47324807 Active 2022 DANTE JEAN BAPTISTE [address] [place], [address], [facility] 3 14:24:02 Osteopen ia 637214547 Active 2022 DANTE JEAN BAPTISTE [address] [place], [address], [facility] 3 14:11:03 Hyperlip idemia 78127807 Active 2022 DANTE JEAN BAPTISTE [address] [place], [address], 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 4 14:14:11 Chronic constipa tion 275841314 Active 2023 DANTE JEAN BAPTISTE [address] [place], [address], [facility] 4 14:49:18 Allergic rhinitis 30910564 Active 2023 DANTE JEAN BAPTISTE [address] [place], [address], [facility] 4 16:20:03 Impacted cerumen in right ear 39124062129 86626 Active 2023 DANTE JEAN BAPTISTE [address] [place], [address], [facility] 4 16:25:00 Tinnitus 69153913 Active 2023 DANTE JEAN BAPTISTE [address] [place], [address], [facility] 4 08:55:40 Pelvic floor dysfunct ion 985835976 Active 2023 DANTE JEAN BAPTISTE [address] [place], [address], [facility] 4 12:08:29 Heteroge neously dense breast composit ion 048298925 Active 2024 DANTE JEAN BAPTISTE [address] [place], [address], [facility] 5 16:22:45 Dupuysae reyes's contract ure of finger 685983745 Active 2024 DANTE JEAN BAPTISTE [address] [place], [address], [facility] 5 16:33:31 Liver function tests outside referenc e range 186165349 Active 2024 DANTE JEAN BAPTISTE [address] [place], [address], [facility] 5 09:34:38 Slow transit constipa tion 55635273 Active 2024 DANTE JEAN BAPTISTE [address] [place], [address], [facility] 5 08:43:55 Urinary tract infectio us disease 62479506 Active 2024 DANTE JEAN BAPTISTE [address] [place], [address], [facility] 5 12:05:58 Injury of head 81855055 Active 2024 DANTE JEAN BAPTISTE [address] [place], [address], [facility] 5 14:30:17 Scalp lacerati on 021923216 Active 2024 DANTE JEAN BAPTISTE [address] [place], [address], [facility] 5 14:30:38 Notes:only has the left kidn ey Problem Notes None recorded. Medical Equipment None Reported. Allergies Allergen ID Allergen Name Allergen Category Reaction Reaction Severity Criticality Documentation Date Start Date Code Code System Note Provider Name and Address Organization Details Recorded Time 3152 Product containin g penicilli n (product) medicatio n rash Not available Not available 10/27/2018 24340 8001 SNOMED Bernadette walker [facility] 9 10:18:39 5324 Macrobid medicatio n nausea moderate Not available 05/11/2021 74349 1 RxNorm DANTE JEAN BAPTISTE [address] [place], [address], [facility] 2 11:13:41 984 amoxicill in medicatio n rash Not available Not available 08/15/2017 723 RxNorm Bebe walker [facility] 8 08:29:49 985 Substance with sulfonami de structure and antibacte rial mechanism of action (substanc e) medicatio n rash Not available Not available 08/15/2017 39060 8003 SNOMED Bebe walker [facility] 8 08:29:59 Medications Name Sig Start [...] Not Available cefpodoxi me 200 mg tablet Take 1 tablet every 12 hours by oral route for 7 days. 02/28 completed Not Available Not Available Not Available [...] Updated DateTime 3 160.66 cm 19 kg/m2 62887.9 8 g 98 % 98 % 62 /min 100/60 mm[Hg] Theresa Chicas [facility] 3 13:38:33 Date Recorded Body weight Heart rate Oxygen saturation Oxygen saturation in Arterial blood by Pulse oximetry Systolic And Diastolic Provider Name and Address Organization Details Last Updated DateTime 4 79502.1 8 g 80 /min 98 % 98 % 120/70 mm[Hg] Rosa Dillon [facility] 4 13:37:17 Date Recorded Body height Body mass index (BMI) Body weight Heart rate Oxygen saturation Oxygen saturation in Arterial blood by Pulse oximetry Systolic And Diastolic Provider Name and Address Organization Details Last Updated DateTime 5 160.02 cm 20.4 kg/m2 29367.1 2 g 84 /min 93 % 93 % 120/78 mm[Hg] DANTE JEAN BAPTISTE [address] [place], [address] [place] [address] Internal Medicine 5 16:08:35 Date Recorded Body height Body mass index (BMI) Body weight Heart rate Oxygen saturation Oxygen saturation in Arterial blood by Pulse oximetry Systolic And Diastolic Provider Name and Address Organization Details Last Updated DateTime 4 160.66 cm 20.6 kg/m2 77166.3 1 g 83 /min 96 % 96 % 116/62 mm[Hg] Hill Craigin [facility] 4 16:07:16 Date Recorded Body height Heart rate Oxygen saturation Oxygen saturation in Arterial blood by Pulse oximetry Body mass index (BMI) Body weight Systolic And Diastolic Provider Name and Address Organization Details Last Updated DateTime 5 160.02 cm 80 /min 98 % 98 % 20.4 kg/m2 77498.1 2 g 130/80 mm[Hg] Judith Pettitmond [facility] 5 14:12:39 Social History Question Answer Notes LastModified by Organizat ion Details LastModified Time Tobacco Smoking Status Never Smoker Not Available [facility] 02/29/2020 03:36:24 What Was The Date Of Your Most Recent Tobacco Screening? 02/23/2025 [email or web address] Information not available 02/23/2025 Sex: Unknown Functional [...] virus, quadrivalent, preservative 1 completed Not Available [facility] 12/11/2022 09:42:48 COVID-19, mRNA, LNP-S, PF, 30 mcg/0.3 mL dose 1 completed Theresa walker [facility] 03/05/2021 08:34:14 COVID-19, mRNA, LNP-S, PF, 30 mcg/0.3 mL dose 2 completed Not Available [facility] 12/11/2022 09:42:48 COVID-19, mRNA, LNP-S, PF, 50 mcg/0.5 mL dose 2 completed Not Available [facility] 12/11/2022 09:42:48 zoster recombinant 2 completed Not Available [facility] 12/11/2022 09:42:48 zoster recombinant 2 completed Not Available [facility] 12/11/2022 09:42:48 influenza, unspecified formulation 2 completed [...] IMO Codes Diagnosis Note [id number] Berry Robles [facility] [address] [place] [address],[facility] [place] [address] 08/15/2017 14:21:53 08/15/2017 15:25:04 Bursitis of left shoulder 5506167856 29708 M75.52 3154 Berry Robles [facility] [address] [place] [address], [employer] [place] [address] 09/29/2017 10:05:46 09/29/2017 17:11:03 Streptococcal infectious disease 41642081 A49.1 Cervical lymphadenopathy 768929554 R59.0 Malaise and fatigue 2717 99665 R53.81 f/u in office in 2 days [id number] Berry Robles [facility] [address] [facility], [place] [address] 10/01/2017 09:05:44 10/01/2017 10:28:19 Heart murmur 70832998 R01.1 f/u in office 1 week after exam Viral syndrome 353994226 B34.9 symptoms improved work note provided for this week [id number] Berry Robles [facility] Internal [facility] [address] [facility],[place] [address] 10/27/2017 15:45:49 10/27/2017 16:37:31 Intermittent palpitations 211235215 R00.2 Hypercholesterolemia 136 93453 E78.00 Good RR, continue healthy lifestyle [id number] Berry Robles [facility] Internal [facility] [address] [facility],[place] [address] 03/31/2018 09:27:19 03/31/2018 10:08:36 Diarrhea 74748899 R19.7 Family problems 02168127 4 Z63.79 discussed [id number] Berry Robles [facility] Internal [address],[place] [address] 10/27/2018 10:13:36 10/27/2018 11:48:51 Adult health examination 495221020 Z00.00 Active or passive immunization 787279497 Z23 Hypercholesterolemia 136 42096 E78.00 Microscopic hematuria 19 6215939 R31.21 s/p menopause no uti sx Vitamin D deficiency 347 71861 E55.9 Cellulitis 363728016 L03 .90 2/2 wasp or yellow jacket sting [id number] Berry Robles [facility] [address] [facility],[place] [address] 03/07/2020 08:25:47 03/07/2020 15:47:24 Central cord syndrome of cervical spinal cord 835684522 S14.129A doing much better fu as needed Tetraplegia 34444564 G82 .53 doing well able to walk and move with limited assistance of walker 24096 Berry Robles [facility] Internal [facility] [address] [facility],[place] [address] 03/21/2020 11:47:00 03/21/2020 16:06:01 Osteopenia 838536915 M85.80 will start on alendronat e qdwk Spasm 53198292 R25.2 will check mag level Tetraplegia 41520786 G82 .54 doing well able to walk and move with limited assistance of walker improving Central co rd syndrome of cervical spinal cord 027858538 S14.129A doing better, still working on improving collet maker strength and sensation [id number] Berry Robles [facility] [address] [facility], [place] [address] 04/10/2020 11:43:36 04/10/2020 16:18:23 Herpes zoster 5554021 B02.9 looks like shingles rash following trigeminal pathway will see if improvemen t on valtrex and pred taper, concern is that is on her rigth eyelid, it being so close to her eye Central co rd syndrome of cervical spinal cord 582499019 S14.129A doing better, still working on improving collet maker strength and sensation Tetraplegia 38298588 G82 .54 doing well able to walk and move with limited assistance of walker improving [id number] Berry Robles [facility] [address] [facility],[place] [address] 05/31/2020 14:54:50 05/31/2020 16:09:05 Central cord syndrome of cervical spinal cord 807668366 S14.129D long detailed discussion we will havce her see specialist tomorrow a dr zapata plan to increase her baclofen to 10 tid relates having issues with burning sensation and has had issues with this in the leg as well also she wishes to come off the oxycodone only taking this for the burning sensation in her hands and leg Hypercholesterolemia 136 39804 E78.00 will cont to follow and we will repeat lab shortly Lower limb spasticity 39 0496650 M62.838 she is only taking 5 mg tid we will increase to 10mg [id number] Berry Robles [facility] [address] [facility],[place] [place] [address] 09/27/2020 10:47:56 09/27/2020 11:12:04 Tetraplegia 64066823 G82.54 doing well able to walk and move with limited assistance of walker and even now without one improving and follows with her neuro and PT Peripheral venous insufficiency 34889030 I87.2 will address this at next visit so I can do a proper exam Bite of no nvenomous spider 667825763 W57.XXXS possibly a spider bite will start on short course of doxy [id number] Berry Robles [facility] Internal [facility] [address] [place] [address] 10/04/2020 16:20:05 10/04/2020 16:53:29 Central cord syndrome of cervical spinal cord 267136690 S14.129A doing better, still working on improving collet maker strength and sensation Tetraplegia 42188265 G82 .54 doing well able to walk and move with limited assistance of walker and even now without one improving at home and follows with her neuro and PT Peripheral venous insufficiency 72017052 I87.2 mild varicose veins of the lower extremitie s, discussed with patient this is due to SCI [id number] Berry Robles [facility] Internal [address] [address] 12/11/2020 15:45:26 12/11/2020 16:41:59 Active or passive immunization 002432810 Z23 advised Adult heal th examination 621374221 Z00.00 needs lab work Hypomagnesemia 750024910 E83.42 will recheck Anemia 875029144 D50.0 will fu with lab work [id number] Berry Robles [address] [place] [address] 12/29/2020 09:39:24 01/02/2021 11:49:00 Central cord syndrome of cervical spinal cord 901499271 S14.129A doing better, still working on improving collet maker strength and sensation Hypercholesterolemia 136 32481 E78.00 start red yeast rice and fish oil [id number] Berry Robles [facility] Internal [address] [place] [address] 05/07/2021 09:53:25 05/07/2021 16:29:31 Dysuria 77623128 R30.0 will fu with treatment plan [id number] Berry Robles [facility] Internal [address] [place] [address] 05/11/2021 09:17:34 05/18/2021 10:22:27 Tetraplegia 00651178 G82.54 recent fu, having an MRI with neurosurge ry Dysuria 53804651 R30.0 stop medication except anti-emeti c Nausea 678979578 R11.0 continue as needed if she is nauseous [id number] Berry Robles [facility] [address] [facility],[place] [address] 05/10/2022 13:24:42 05/14/2022 08:36:53 Active or passive immunization 534482573 Z23 advised Adult heal th examination 282122397 Z00.00 needs lab work [address] co rd syndrome of cervical spinal cord 559122677 S14.129A will adjust to the 10 mg prednisone as needed on top of the 5 mg Screening for osteoporosis 234114806 Z13.820 will set up with bone density screeningn eeds recheck Kidney stone 35768056 N2 0.0 left kidneyonly has on kidney Aneurysm o f splenic artery 78540348 I72.8 seeing cardio for eval since her insurance denied the CTA for it Vitamin D deficiency 347 76894 E55.9 will recheck [id number] Berry Robles [facility] [address] [facility] [address] 05/16/2023 13:27:15 05/16/2023 15:25:23 Constipation 40807813 K59.01 will try first with linzess, would like to try motegrity at the end Aneurysm o f spinal artery 5314936 I72.8 stable 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 245690461 G82.54 improving Adult heal th examination 247425418 Z00.00 needs lab workfor routine stuff Hyperlipidemia 83732400 E78.01 will recheck lipid levels Family his tory of breast cancer 173089720 Z80.3 found mutation her daughter haswill check for this Vesicular eczema of hand 711588269 L30.8 will start on clobetasol to see if alleviates her symptoms [id number] Berry Robles [facility] Medicine [address] [facility], [place] [address] 08/19/2023 15:57:08 08/20/2023 08:22:19 Allergic rhinitis 43853077 J30.1 agreed to trying flonase and will use debrox on the Impacted c erumen in right ear 8601239487 738412 H61.21 will use debrox [id number] Berry Robles [facility] [address] [facility], [place] [address] 05/19/2024 15:52:54 05/21/2024 08:08:28 Active or passive immunization 893113659 Z23 advised Adult heal th examination 076672886 Z00.00 BP is excellent Heterogene ously dense breast composition 235720936 R92.2 suggested MRI Dupuytren' s contracture of finger 597153510 M72.0 bilaterall y, seeing hand specialist , does not need surgery at this time Osteoporosis 42861418 M8 1.0 will set up bone density, due for two year checkhas only been doing the calcium and vit d due to intoleranc e of the alendronat e Hyperlipidemia 06481140 E78.01 will recheck lipid levels [id number] Berry Robles [facility] Medicine [address] [facility], [place] [address] 02/23/2025 14:05:06 02/25/2025 09:28:34 Accidental fall 983395045 W19.XXXA 4598132 Injury of head 71977266 S09.90XA 8622182 recommende d XR Scalp laceration 8413322 08 S01.01XA 6849646 Health Concerns Section Related Observation LastModified by Organization Detai ls LastModified Time None Recorded Concern Status LastModified by Organization Details LastModified Time None Recorded Advance Directives Directive None Recorded Payers Insurance Date Sequence Insurance Name Policy Number Policy Dennis Covered Member ID Dennis Member ID Guarantor Name 02/23/[address] [place] [address] [id number] Vincent Cuevas [id number] Vincent Cuevas Notes Date Note Type Note [...] anddiscussed exercise habits(does yogawalksdoes chair yoga at [facility] in [place]). For additional lifestyle factors, patient reportsno tobacco [...] using a transport service DANTE JEAN BAPTISTE [address] [place] [address], [id number], [facility] 05/10/2022 14:28:42 [...] the severe constipation DANTE JEAN BAPTISTE [address] [place], [phone], [facility] 05/16/2023 14:20:27 [...] otherwise doing well DANTE JEAN BAPTISTE [address] [place], [phone], [facility] 08/19/2023 16:28:55 [...] away night-time dose DANTE JEAN BAPTISTE [address] [place], [phone], [facility] 05/19/2024 16:59:49 5 text/html [...] care instructions the patient is clear, concise, [id number] movement, ROMno other changes recommended she get neck XR, possible CT head if symptoms develop DANTE JEAN BAPTISTE [address] [place], [phone], [facility] 02/23/2025 14:42:32 OBGyn Episode No OBEpisode recorded.
== END 2025-03-11 15:38 | disposition home or self-care (01) ==
LOC: HO.CT 15:37
PROVIDERS: PCP Physician Assistant; Visit Provider Physician Assistant
DX: Z87.820 Personal history of traumatic brain injury (principal); Z91.81 History of falling
CPT/HCPCS: 70450

== ENCOUNTER → 2025-03-11 15:54 | Outpatient (BNV) | payer OTHER, SELFPAY | PROVIDERS: PCP Physician Assistant; Visit Provider Radiology Diagnostic Radiology | DX: Z04.3 Encounter for examination and observation following other accident (principal); J34.89 Other specified disorders of nose and nasal sinuses | CPT/HCPCS: 70450 ==